=== PATIENT | male | born 1995 | race Caucasian/White ===

== ENCOUNTER 2023-10-30 19:06 | Emergency (ER) | payer MEDICAID, SELFPAY ==
[2023-10-30 19:18] VITALS: BP 132/77; PULSE 81; RESP 16; TEMP 36.2; O2SAT 97
--- NOTE | 2023-10-30 19:39 | ED.GENADUL_ITS ---
Discharge Plan Disposition Patient Disposition: Home Condition: Improving Discharge Details Chief Complaint: PsychEval Clinical Impression: Problem, psychiatric ED Provider: Hao Ignacio Home Meds and New Rx's Prescriptions: No Action aripiprazole [Abilify] 20 mg tablet 20 mg PO DAILY Patient Comments: not taking clonidine HCl 0.2 mg tablet 0.2 mg PO Q8H Patient Comments: not taking quetiapine 100 mg tablet 100 mg PO QHS Patient Comments: not taking fluoxetine 40 mg capsule 40 mg PO DAILY Patient Comments: not taking lithium carbonate 300 mg capsule 300 mg PO TID Discharge Instructions Instructions: Depression (ED) Additional Instructions: Please follow-up with [facility] as scheduled Medical Decision Making 28-year-old male presents with resolved suicidal ideations, was frustrated and made anxious by an argument he witnessed, currently staying at the [facility] in feels safe there, denies hallucinations, no evidence of delusions, denies current SI or HI. Patient calm cooperative neurologically intact. Hemodynamically stable not intoxicated no evidence of trauma. Will touch base again with [facility] for repeat evaluation if cleared from a psychiatric standpoint patient will be discharged back to where he has been staying 20: 23 patient evaluated by [facility], safety plan has been initiated patient safe for discharge this evening. PD coming to escort patient home. HPI General Date/Time Provider Initiated Documentation: 10/30/23 19:08 . HPI Narrative: 28-year-old male brought in by EMS for evaluation of suicide ideation, patient endorses witnessing an argument between his family members which made him anxious, as well as frustrated and develop thoughts of suicide specifically with a plan to jump off a bridge, was able to contact with the [facility] and human services today as an outpatient with a plan for placement once medically cleared however patient currently denying any suicidal or homicidal ideations denies hallucinations, feels safe where he is staying at the [facility] and wishes to return there. Related Data Home Medications Medication Instructions Recorded Confirmed aripiprazole 20 mg tablet (Abilify) 20 mg PO DAILY 10/30/23 10/30/23 clonidine HCl 0.2 mg tablet 0.2 mg PO Q8H 10/30/23 10/30/23 fluoxetine 40 mg capsule 40 mg PO DAILY 10/30/23 10/30/23 lithium carbonate 300 mg capsule 300 mg PO TID 10/30/23 10/30/23 quetiapine 100 mg tablet 100 mg PO QHS 10/30/23 10/30/23 Allergies Allergy/AdvReac Type Severity Reaction Status Date / Time risperidone Allergy Mild tics Unverified 10/30/23 19:12 General Stated Complaint: PsychEval SOLANGE: 2 Review of Systems Narrative: Review of Systems Constitutional: negative Eyes: negative ENT: negative Cardiovascular: negative Respiratory: negative Gastrointestinal: negative : negative Musculoskeletal: negative Skin: negative Neurologic: negative Psych: negative PFSH All Active Problems (Updated 10/30/23 @ 20:27 by Hao Ignacio MD) Problem, psychiatric (Acute) Social History Smoking/Tobacco Use Status: Former Tobacco Use Quit Date: 10/23/23 Tobacco: How many years used: 10 Smoking risk assessment performed?: Yes Alcohol Intake: never Drug use: Never Substance use type: does not use Housing: homeless Do you feel safe at home: Yes (homeless) Do you feel safe in your relationship?: Yes Exam Narrative Exam Narrative: Physical Examination General: alert, awake, cooperative, resting comfortably, no acute distress HEENT: normocephalic, atraumatic; PERRL, EOM intact, conjunctiva normal; no nasal discharge; moist mucous membranes, oral and pharyngeal mucosa normal, tolerating secretions Neck: supple, trachea midline; full ROM Chest: normal to inspection Respiratory: normal respiratory effort, speaking in full sentences Skin: no lesions, rashes or trauma appreciated Neuro: AAOx3, normal speech, moving all extremities Psych: Appropriate mood and affect; denies SI denies HI Course Vital Signs Vital signs: Vital Signs Temperature 36.2 C L 10/30/23 19:18 Pulse 81 10/30/23 19:18 Respiratory Rate 16 10/30/23 19:18 Blood Pressure 132/77 10/30/23 19:18 Pulse Oximetry 97 10/30/23 19:18 Temperature 36.2 C L 10/30/23 19:18 Temperature Source Temporal Artery Scan 10/30/23 19:18 Pulse 81 10/30/23 19:18 Respiratory Rate 16 10/30/23 19:18 Respiratory Effort Normal, Non-Labored 10/30/23 19:23 Blood Pressure 132/77 10/30/23 19:18 Blood Pressure Position Standing 10/30/23 19:18 Pulse Oximetry 97 10/30/23 19:18 Oxygen Delivery Method Room Air 10/30/23 19:18 Oxygen Flow Rate 0 10/30/23 19:18 End Tidal Co2 0 10/30/23 19:18 Pain Level 0 10/30/23 19:29
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
== END 2023-10-30 20:42 | disposition home or self-care (01) ==
LOC: ER 20:56
PROVIDERS: Emergency Provider Emergency Medicine
DX: F41.9 Anxiety disorder, unspecified (principal); R45.851 Suicidal ideations
CPT/HCPCS: 00123; 96127; 99285; 99284

== ENCOUNTER 2024-11-20 21:42 | Emergency (ER) | payer MEDICAID, SELFPAY ==
[2024-11-20] VITALS (18 sets, daily range): BP systolic 125–133; BP diastolic 72–89; PULSE 79–101; RESP 12–24; TEMP 36.9; O2SAT 94–98
--- NOTE | 2024-11-20 21:30 | RT.EKG_ITS ---
APPROVED REPORT Exam: Resting ECG Reason for Exam: Chest pain Patient Location: E HR:92 bpm ECG Measurements Heart Rate 92 AXIS AL 104 P 47 QRSd 127 QRS -29 QT 363 T 128 QTc 450 Conclusion Sinus rhythm...normal P axis, V-rate 60- 99 I have reviewed and interpreted ECG and agree with software generated interpretation.
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
--- NOTE | 2024-11-20 22:00 | DI.RAD_ITS ---
Exam(s) XR CHEST 2V PA LATERAL EXAM: XR CHEST 2V PA LATERAL CLINICAL HISTORY: CP. TECHNIQUE: 2D digital imaging was performed. COMPARISON: No exams were available for comparison FINDINGS: 2 views: Heart size is normal. The mediastinum is not widened. Lungs are clear. No infiltrates nor pleural effusions. IMPRESSION: No acute pulmonary findings. DATA REPOSITORY: RADIATION DOSE DELIVERED:
[2024-11-20 22:09] LABS: Abs Immature Grans 0.02 10^3/uL (0.0-0.06); Absolute Basophil Count 0.06 10^3/uL (0.0-0.2); Absolute Eosinophil Count 0.23 10^3/uL (0.0-0.7); Absolute Lymphocyte Count 3.23 10^3/uL (1.2-3.4); Absolute Monocyte Count 0.71 10^3/uL (0.1-0.8); Absolute Neutrophil Count 3.79 10^3/uL (1.2-6.7); Basophils % 0.7 %; Eosinophils % 2.9 %; HCT 45.5 % (40.0-50.0); HGB 15.5 g/dL (13.5-17.5); Immature Grans % 0.2 %; Lymphocytes % 40.2 %; MCH 30.8 pg (27.0-33.0); MCHC 34.1 % (32.0-36.0); MCV 90 fL (80-95); MPV 11.7 fL (8.0-11.0); Monocytes % 8.8 %; Neutrophils % 47.2 %; Platelet Count 208 10^3/uL (130-400); RBC 5.04 10^6/uL (4.36-5.78); RDW 11.9 % (11.8-14.1); RDW-SD 39.5 fL; WBC 8.04 10^3/uL (4.4-10.8)
[2024-11-20] MEDS: LORazepam 2 MG/ML VIAL 0.5 MG IVP (22:12)
[2024-11-20] MEDS: Ketorolac 15 MG/ML VIAL IVP (22:12)
[2024-11-20 22:27] LABS: Anion Gap 7.8 mmol/L (3-11); BUN 13 mg/dL (7-18); CO2 29.2 mmol/L (21.0-32.0); Calcium 9.2 mg/dL (8.5-10.1); Chloride 106 mmol/L (98-107); Estimated GFR 105.79 (mL/min/1.73m2); Glucose 122 mg/dL (74-106); Magnesium 1.9 mg/dL (1.8-2.4); Sodium 143 mmol/L (136-145); Troponin I 8 ng/L (<or=76)
--- NOTE | 2024-11-20 23:25 | DI.VRAD_ITS ---
PROCEDURE INFORMATION: Exam: XR Chest Exam date and time: 11/20/2024 10:19 PM Age: 29 years old Clinical indication: Pain; Other: Cp TECHNIQUE: Imaging protocol: Radiologic exam of the chest. Views: 2 views. COMPARISON: No relevant prior studies available. FINDINGS: Lungs: Normal. Pleural spaces: Unremarkable. No pleural effusion. No pneumothorax. Heart/Mediastinum: Normal. Bones/joints: No acute abnormality. IMPRESSION: No acute findings. Dictated and Authenticated by: Darnell Thapa MD. Ordering:KHAI Newby MD
== END 2024-11-20 23:31 | disposition home or self-care (01) ==
PROVIDERS: Emergency Provider Emergency Medicine
DX: R07.9 Chest pain, unspecified (principal); I45.6 Pre-excitation syndrome; Z59.00 Homelessness unspecified; Z87.891 Personal history of nicotine dependence
CPT/HCPCS: 80048; 93005; 96374; 96375; 99285; 71046; 83735; 84484; 85025; 93010; J1885; J2060

== ENCOUNTER 2024-11-22 23:15 | Emergency (ER) | payer MEDICAID, SELFPAY ==
[2024-11-22 23:11] VITALS: BP 135/88; PULSE 87; RESP 16; TEMP 36.5; O2SAT 97
--- NOTE | 2024-11-22 23:15 | RT.EKG_ITS ---
APPROVED REPORT Exam: Resting ECG Reason for Exam: chest pain Patient Location: E HR:76 bpm ECG Measurements Heart Rate 76 AXIS ME 112 P 46 QRSd 136 QRS -25 QT 376 T 134 QTc 425 Conclusion Sinus rhythm...normal P axis, V-rate 60- [address] segment or T wave abnormalities to suggest occlusive TX
[2024-11-22 23:19] VITALS: RESP 16
--- NOTE | 2024-11-22 23:30 | DI.RAD_ITS ---
Exam(s) XR CHEST 2V PA LATERAL EXAM: XR CHEST 2V PA LATERAL CLINICAL HISTORY: Chest pain. TECHNIQUE: 2D digital imaging was performed. COMPARISON: CR,XR XR CHEST 2V PA LATERAL from 11/20/2024 FINDINGS: 2 views: Heart size is normal. The mediastinum is not widened. Lungs are clear. No infiltrates nor pleural effusions. IMPRESSION: No acute pulmonary findings. DATA REPOSITORY: RADIATION DOSE DELIVERED:
[2024-11-22 23:44] VITALS: PULSE 91; RESP 16
[2024-11-22 23:45] VITALS: BP 137/70; PULSE 77; PULSE 86; RESP 18; O2SAT 96
[2024-11-22 23:50] VITALS: PULSE 75; RESP 22; O2SAT 97
[2024-11-22 23:56] LABS: Abs Immature Grans 0.01 10^3/uL (0.0-0.06); Absolute Basophil Count 0.07 10^3/uL (0.0-0.2); Absolute Eosinophil Count 0.25 10^3/uL (0.0-0.7); Absolute Lymphocyte Count 3.25 10^3/uL (1.2-3.4); Absolute Monocyte Count 0.53 10^3/uL (0.1-0.8); Absolute Neutrophil Count 2.48 10^3/uL (1.2-6.7); Basophils % 1.1 %; Eosinophils % 3.8 %; HCT 43.5 % (40.0-50.0); HGB 14.7 g/dL (13.5-17.5); Immature Grans % 0.2 %; Lymphocytes % 49.3 %; MCH 30.5 pg (27.0-33.0); MCHC 33.8 % (32.0-36.0); MCV 90 fL (80-95); MPV 11.7 fL (8.0-11.0); Neutrophils % 37.6 %; Platelet Count 183 10^3/uL (130-400); RBC 4.82 10^6/uL (4.36-5.78); RDW 11.9 % (11.8-14.1); RDW-SD 39.2 fL; WBC 6.59 10^3/uL (4.4-10.8)
[2024-11-23 00:01] VITALS: PULSE 80; RESP 17; O2SAT 97
[2024-11-23 00:10] VITALS: PULSE 70; RESP 17; O2SAT 97
[2024-11-23 00:12] LABS: ETHANOL BLOOD < 3.0 mg/dL (<10)
[2024-11-23 00:19] LABS: ALT 67 U/L (16-63); AST 27 U/L (15-37); Albumin 3.8 g/dL (3.4-5.0); Alkaline Phosphatase 77 U/L (46-116); Anion Gap 9.1 mmol/L (3-11); BUN 10 mg/dL (7-18); Bilirubin, Total 0.25 mg/dL (0.2-1.0); CO2 27.9 mmol/L (21.0-32.0); Calcium 9.2 mg/dL (8.5-10.1); Chloride 107 mmol/L (98-107); Estimated GFR 105.79 (mL/min/1.73m2); Glucose 121 mg/dL (74-106); Lipase 28 U/L (<78); Magnesium 1.8 mg/dL (1.8-2.4); Sodium 144 mmol/L (136-145); Total Protein 7.5 g/dL (6.4-8.2); Troponin I 6 ng/L (<or=76)
[2024-11-23 00:20] VITALS: PULSE 65; RESP 10; O2SAT 95
[2024-11-23 00:21] LABS: Acetaminophen < 2 ug/mL (10-30); Salicylate < 2.8 mg/dL (<2.8)
[2024-11-23 00:30] VITALS: PULSE 58; RESP 23; O2SAT 97
--- NOTE | 2024-11-23 01:17 | W.ED.GENAD ---
Discharge Plan Discharge Details Chief Complaint: Chest Pain Primary Care Provider: None,None ED Provider: Marilee Crum Home Meds and New Rx's Prescriptions: No Action aripiprazole [Abilify] 20 mg tablet 20 mg PO DAILY prazosin 1 mg capsule 1 mg PO DAILY Patient Comments: TAKE 1 CAPSULE BY MOUTH AT BEDTIME HPI General Mode of arrival: EMS. Date/Time Provider Initiated Documentation: 11/22/24 23:19. Limitations to Documentation: no limitations. Information obtained by: patient, EMS and old records reviewed. HPI Narrative: 29yo M with hx autism, bipolar, PTSD, WpW, presenting via EMS for suicidal ideation. Has been thinking about ending his life. No specific plan right now but would use any means necessary. Prior suicide attempts via cutting, previous psychiatric hospitalizations. Denies any ingestions or attempts today. Denies HI/AH/VH. Has otherwise felt well, but notes that chest pain started on arrival to the ED. Pain is sharp, substernal, nonradiating, with no alleviating or aggravating factors. Some shortness of breath and nausea with this. Has had similar pain in the past when discussing mental health issues. No family history of early cardiac disease. Otherwise in his usual state of health with no fevers, chills, rash, vomiting, abdominal pain, numbness, weakness, or other concerns. Seen in this ED 11/20 for chest pain that started while speaking with [facility] (reassuring workup), and on 10/30 for SI (safety plan and discharge). Related Data Home Medications ?Medication ?Instructions ?Recorded ?Confirmed aripiprazole 20 mg tablet (Abilify) 20 mg PO DAILY 10/30/23 11/22/24 prazosin 1 mg capsule 1 mg PO DAILY 11/20/24 11/22/24 Allergies Allergy/AdvReac Type Severity Reaction Status Date / Time risperidone Allergy Mild tics Verified 11/23/24 00:16 General Stated Complaint: Chest Pain SOLANGE: 2 Review of Systems Narrative: see HPI Exam Narrative Exam Narrative: General: Alert, well appearing, well nourished, in no acute distress. Head: Normocephalic, atraumatic Neck: Trachea midline, ?Neck supple. Cardiac: ?RRR, no murmurs appreciated Resp: No respiratory distress. CTAB. Abd: ?Soft, non-distended, nontender Extremities: ?No deformities.? No peripheral edema. Neurologic: GCS 15. ? Moves all extremities freely against gravity Psych: Calm, cooperative.? Well groomed.? Mood bad, affect flat.? Speech soft with normal rate, rythym and tone. Linear and goal directed.? + SI, no specific plan. Denies HI/AH/VH. ? Does not appear to be responding to internal stimuli. Course Vital Signs Vital signs: Vital Signs Temperature 36.5 C 11/22/24 23:11 Pulse 87 11/22/24 23:11 Respiratory Rate 16 11/22/24 23:11 Blood Pressure 135/88 11/22/24 23:11 Pulse Oximetry 97 11/22/24 23:11 Temperature 36.5 C 11/22/24 23:11 Pulse 77 11/22/24 23:45 Pulse 58 L 11/23/24 00:30 Respiratory Rate 23 11/23/24 00:30 Respiratory Effort Normal, Non-Labored 11/22/24 23:19 Respiratory Depth Normal 11/22/24 23:19 Respiratory Pattern Normal 11/22/24 23:19 Blood Pressure 137/70 11/22/24 23:45 Blood Pressure Mean 90 11/22/24 23:45 Blood Pressure Position Sitting 11/22/24 23:11 Pulse Oximetry 97 11/23/24 00:30 Oxygen Delivery Method Room Air 11/22/24 23:11 Oxygen Flow Rate 0 11/22/24 23:11 Pain Level 10 11/22/24 23:19 Lab/Test Results Lab/Test Results: Laboratory Tests Range/Units 11/22/24 23:47 WBC (4.4-10.8) 10^3/uL 6.59 RBC (4.36-5.78) 10^6/uL 4.82 Hgb (13.5-17.5) g/dL 14.7 Hct (40.0-50.0) % 43.5 MCV (80-95) fL 90 MCH (27.0-33.0) pg 30.5 MCHC (32.0-36.0) % 33.8 RDW (11.8-14.1) % 11.9 Plt Count (130-400) 10^3/uL 183 MPV (8.0-11.0) fL 11.7 H Immature Gran % % 0.2 Neutrophils % % 37.6 Lymphocytes % % 49.3 Monocytes % % 8.0 Eosinophils % % 3.8 Basophils % % 1.1 Nucleated RBC % (0.0-0.3) % 0.0 Absolute Neutrophils (1.2-6.7) 10^3/uL 2.48 Absolute Lymphocytes (1.2-3.4) 10^3/uL 3.25 Absolute Monocytes (0.1-0.8) 10^3/uL 0.53 Absolute Eosinophils (0.0-0.7) 10^3/uL 0.25 Absolute Basophils (0.0-0.2) 10^3/uL 0.07 Sodium (136-145) mmol/L 144 Potassium (3.5-5.1) mmol/L 4.0 Chloride (98-107) mmol/L 107 Carbon Dioxide (21.0-32.0) mmol/L 27.9 Anion Gap (3-11) mmol/L 9.1 BUN (7-18) mg/dL 10 Creatinine (0.70-1.30) mg/dL 1.0 Est GFR (CKD-EPI 2020) (mL/min/1.73m2) 105.79 Glucose (74-106) mg/dL 121 H Calcium (8.5-10.1) mg/dL 9.2 Magnesium (1.8-2.4) mg/dL 1.8 Total Bilirubin (0.2-1.0) mg/dL 0.25 AST (15-37) U/L 27 ALT (16-63) U/L 67 H Alkaline Phosphatase (46-116) U/L 77 Troponin I (<or=76) ng/L 6 Total Protein (6.4-8.2) g/dL 7.5 Albumin (3.4-5.0) g/dL 3.8 Lipase (<78) U/L 28 Salicylates (<2.8) mg/dL < 2.8 Acetaminophen (10-30) ug/mL < 2 Ethyl Alcohol (<10) mg/dL < 3.0 Medical Decision Making 29yo M with hx autism, bipolar, PTSD, WpW, presenting via EMS for suicidal ideation; no specific plan right now but would use any means necessary. Also reports chest pain started on arrival to the ED and has had similar pain in the past when discussing mental health issues. Vital signs and physical exam reassuring on arrival. EKG consistent with reported WpW, no ST segment or T wave abnormalities to suggest occlusive OK. PERC negative, would not further pursue PE with dimer/CT. CXR independently reviewed; no focal pneumonia or pneumothorax on my view, radiology read below with no acute findings. Labs reviewed as below, CBC with no leukocytosis or anemia, CMP with no actionable abnormalities, Mg normal, serum tox negative, troponin normal (6) On reassessment he reports his chest pain has entirely resolved. HEART score 1 (risk factors), low risk; would not further pursue ACS/trend troponin. Medically cleared; home meds ordered. Torsten from [facility] evaluated patient; recommending voluntary inpatient placement. Referrals being sent. Will be signed out to oncoming physician, plan as above. Imaging Data Radiologic Study: Imaging: X-Ray Radiologist's impression: IMPRESSION: No acute findings to explain reported symptoms Lab Data Lab results reviewed: Yes I reviewed the patient's lab results. Labs: Laboratory Tests Range/Units 11/22/24 23:47 WBC (4.4-10.8) 10^3/uL 6.59 RBC (4.36-5.78) 10^6/uL 4.82 Hgb (13.5-17.5) g/dL 14.7 Hct (40.0-50.0) % 43.5 MCV (80-95) fL 90 MCH (27.0-33.0) pg 30.5 MCHC (32.0-36.0) % 33.8 RDW (11.8-14.1) % 11.9 Plt Count (130-400) 10^3/uL 183 MPV (8.0-11.0) fL 11.7 H Immature Gran % % 0.2 Neutrophils % % 37.6 Lymphocytes % % 49.3 Monocytes % % 8.0 Eosinophils % % 3.8 Basophils % % 1.1 Nucleated RBC % (0.0-0.3) % 0.0 Absolute Neutrophils (1.2-6.7) 10^3/uL 2.48 Absolute Lymphocytes (1.2-3.4) 10^3/uL 3.25 Absolute Monocytes (0.1-0.8) 10^3/uL 0.53 Absolute Eosinophils (0.0-0.7) 10^3/uL 0.25 Absolute Basophils (0.0-0.2) 10^3/uL 0.07 Sodium (136-145) mmol/L 144 Potassium (3.5-5.1) mmol/L 4.0 Chloride (98-107) mmol/L 107 Carbon Dioxide (21.0-32.0) mmol/L 27.9 Anion Gap (3-11) mmol/L 9.1 BUN (7-18) mg/dL 10 Creatinine (0.70-1.30) mg/dL 1.0 Est GFR (CKD-EPI 2020) (mL/min/1.73m2) 105.79 Glucose (74-106) mg/dL 121 H Calcium (8.5-10.1) mg/dL 9.2 Magnesium (1.8-2.4) mg/dL 1.8 Total Bilirubin (0.2-1.0) mg/dL 0.25 AST (15-37) U/L 27 ALT (16-63) U/L 67 H Alkaline Phosphatase (46-116) U/L 77 Troponin I (<or=76) ng/L 6 Total Protein (6.4-8.2) g/dL 7.5 Albumin (3.4-5.0) g/dL 3.8 Lipase (<78) U/L 28 Salicylates (<2.8) mg/dL < 2.8 Acetaminophen (10-30) ug/mL < 2 Ethyl Alcohol (<10) mg/dL < 3.0 Quality:SDOH Health Related Social Needs: Health related social needs housing instability, housed, with risk of homelessness (Z59.811), problems related to housing/economic circumstances (Z59.89), feeling lonely/isolated (Z60.8) PFSH All Active Problems Chest pain (Acute) Medical History Autism WPW (Dwioc-Myiexyuom-Gsczd syndrome) Social History Smoking/Tobacco Use Status: Former Tobacco Use Quit Date: 10/23/23 Tobacco: How many years used: 10 Smoking risk assessment performed?: Yes Alcohol Intake: never Drug use: Socially Substance use type: marijuana Housing: homeless Do you feel safe at home: Yes (homeless) Do you feel safe in your relationship?: Yes Additional Social history: living at [facility] 11/22/24
--- NOTE | 2024-11-23 01:39 | DI.VRAD_ITS ---
PROCEDURE INFORMATION: Exam: XR Chest Exam date and time: 11/22/2024 11:58 PM Age: 29 years old Clinical indication: Other: Chest pain TECHNIQUE: Imaging protocol: Radiologic exam of the chest. Views: 2 views. COMPARISON: CR XR CHEST 2V PA LATERAL 11/20/2024 10:19 PM FINDINGS: Lungs: No focal consolidation seen. Pleural spaces: No large pleural effusion seen. Heart/Mediastinum: No cardiomegaly. Bones/joints: No acute abnormality. IMPRESSION: No acute findings to explain reported symptoms. Dictated and Authenticated by: Melania David MD. Ordering:JOE Hunt MD
--- NOTE | 2024-11-23 02:32 | NUR.NOTE ---
[facility] called back for zoom meeting
--- NOTE | 2024-11-23 03:23 | PDOC.MHCN ---
Date of service: 11/23/24 Time of Service: 02:17 Suicide Severity Rate CSSRS Have you wished you were or wished you could go to sleep and not wake up?: Yes Have you actually had any thoughts of killing yourself?: Yes CSSRS2 Have you been thinking about how you might do this?: Yes Have you had these thoughts and had some intention of acting on them?: Yes Have you started to work out or worked out the details of how to kill yourself? Do you intend to carry out this plan?: Yes CSSRS3 Have you ever done anything, started to do anything or prepared to do anything to end your life?: Yes CSSRS4 Was this within the past three months?: No Screening Score Total Score: 6 Screening: Positive Mental Health Emergency Note Release [facility] release signed:: Yes Reason for Visit Client called ambulance do to feeling suicidal. Client shared these feeling have been going on all day. Client stated that he will jump in front of a car or any means necessary to harm himself. Client shared that if he had services he might not feel this way but he doesn't have any support to help him get through feelings of SI. In the last 2 weeks has the pt presented for ES prior to today?: Yes, presented at Client Information Client is: Adult Outpatient Well Housed: No,status: Homeless Unstable housing Non Suicidal Self Injury Current: No History: No Safety Risk/Harm to Self or Others Current Ideation to Harm Self or Others: Yes to self. Intent: yes, has intent. Plan: yes,has a plan. Risk: Does risk to harm exist?: yes. Risk: Moderate Risk Duty to warn indicated: No Asssessment/Mental Status Appearance: Other (Paper clothes) Attitude: Cooperative Behavior: Unremarkable Speech: Normal Affect: Normal Mood: Depressed Thought process: Unremarkable Hallucinations: No Delusions: No Attention: Unremarkable Perception: Not impaired Orientation: Fully orientated Memory: Intact Insight: Good Judgement: Good Neurovegetative Symptoms Sleep: Decrease Appetitie: Decrease Interests: No change Energy: No change Libido: No change Substance Use: Do you use nicotine?: No Have you used substances in the last 7 days?: No Additional Issues: Assaultive/Threatening Behavior: No Medical Concerns: No Client engaged in active self harm w/weapon: No Threatening to run away: No Child reported abuse/neglect: No Voluntarily presenting for services: Yes Domestic violence is a concern: No Extreme Psychosis or extreme behavior is present: No Plan/Disposition Recommended Disposition: Crisis bed, facility contacted. Status of Crisis Bed acceptance: Pending review. Plan: Client will remain at [facility] awaiting inpatient hospitalization, referrals have been sent out. Reports/communication Outcome discussed with: ED/Personnel (Discussed with Dr. Crum) Final Disposition/Discharge Transportation Checklist completed and faxed: No
[2024-11-23] MEDS: Prazosin 1 MG CAP PO (08:46)
[2024-11-23] MEDS: Omeprazole 20 MG CAPCR PO (09:23)
--- NOTE | 2024-11-23 10:43 | W.EDPROG ---
Date of service: 11/23/24 Time of Service: 10:44 Medical Decision Making Care was signed out by Dr. Crum. Patient noted to be medically cleared and awaiting further psychiatric treatment. Patient evaluated by crisis screener and deemed safe for discharge with safety plan. Patient agreeable to discharge plan. Patient is not suicidal. No recurrent chest pain. I spoke with care management re: helping patient establish PCP. Quality:SDOH Health Related Social Needs: Health related social needs housing instability, housed, with risk of homelessness (Z59.811), problems related to housing/economic circumstances (Z59.89), feeling lonely/isolated (Z60.8) Discharge Plan Disposition Patient Disposition: Home Condition: Stable Discharge Details Clinical Impression: Suicidal ideation, Chest pain Primary Care Provider: None,None ED Provider: Bossman Andersen Home Meds and New Rx's Prescriptions: Continued omeprazole 20 mg capsule,delayed release(DR/EC) 20 mg PO DAILY aripiprazole [Abilify] 20 mg tablet 20 mg PO DAILY prazosin 1 mg capsule 1 mg PO DAILY Patient Comments: TAKE 1 CAPSULE BY MOUTH AT BEDTIME Discharge Instructions Instructions: Chest Pain, Adult ED, Depression, Adult ED Additional Instructions: Please contact your primary care physician to arrange follow-up. Call today. Please follow-up with [facility] services as discussed today as part of your discharge safety plan. Return to the ER immediately for any worsening or new concerning symptoms. Referrals: [facility] [Provider Group]
[2024-11-23] MEDS: ARIPiprazole 5 MG TAB 10 MG PO (10:45)
--- NOTE | 2024-11-23 12:18 | CMPROGNOTE_ITS ---
Date of service: 11/23/24 Time of Service: 12:18 Care Management Progress Note Progress Note Text Progress Note Text: Ketan met with [facility] this morning, and together he and the outreach clinician created a safety plan, and he was discharged back to the community. CM huddled with staff, including MD, RN, AUDIE, and [facility] clinician; all are in agreement with the plan for Ketan to be discharged with a safety plan. CASTRO sent a PCP referral to the personal counselor provider, at the request of . Social Determinants of Health Screening Will the Patient Participate in the Screening?: Unable to obtain
--- NOTE | 2024-11-23 12:18 | PDOC.CMPRO ---
Date of service: 11/23/24 Time of Service: 12:18 Care Management Progress Note Progress Note Text Progress Note Text: Ektan met with [facility] this morning, and together he and the creative services manager created a safety plan, and he was discharged back to the community. CM huddled with staff, including MD, RN, AUDIE, and [facility] clinician; all are in agreement with the plan for Ketan to be discharged with a safety plan. CASTRO sent a PCP referral to the environmental maintenance worker provider, at the request of . Social Determinants of Health Screening Will the Patient Participate in the Screening?: Unable to obtain
--- NOTE | 2024-11-23 12:53 | MHPN_ITS ---
Date of service: 11/23/24 Time of Service: 12:55 Mental Health Emergency Note Release [facility] release signed:: Yes Reason for Visit Client went to the ER Feeling suicidal, client had hotel staff call ambulance. Client stated he was thinking of jumping in front of a car or any means necessary. Client is known to [facility], client shared he is on a wait list for DS program through [facility]. This is the client's re-assessment completed face to face at bedside. In the last 2 weeks has the pt presented for ES prior to today?: Unknown Impression The client is a 29-year-old, single, male who is currently residing in the [facility]. The client uses He/Him pronouns. All underrepresented identifiers were honored during this assessment. The client is observed lying in bed but quickly arises upon this clinician's entry. He stated immediately he is not feeling suicidal anymore and stated I was struggling yesterday and not today. I don't know often if I am really suicidal or not. A lot of the times I misunderstand my feelings and get overwhelmed. The client requested a safety plan. I should have on there that I will use my safety plan before coming to the ED. The client seems to be showing improved insight and judgement at this time. This clinician worked with him on a safety plan which was shared with the ED. Resources [facility] reviewed and given:: [phone] and Other Plan/Disposition Recommended Disposition: Community resources. Plan: Client to return to the [facility] and follow up with his team as scheduled. Person reported agreement to plan: Yes Reports/communication Outcome discussed with: ED/Personnel
== END 2024-11-23 11:29 | disposition home or self-care (01) ==
PROVIDERS: Student in an Organized Health Care Education/Training Program; Emergency Provider Student in an Organized Health Care Education/Training Program
DX: R45.851 Suicidal ideations (principal); R07.9 Chest pain, unspecified; F84.0 Autistic disorder; I45.6 Pre-excitation syndrome; Z87.891 Personal history of nicotine dependence
CPT/HCPCS: 00123; 80053; 83690; 93005; 99285; 71046; 80320; 80329; 83735; 84484; 85025; 93010

== ENCOUNTER 2024-11-28 07:48 | Emergency (ER) | payer MEDICAID, SELFPAY ==
[2024-11-28] VITALS (56 sets, daily range): BP systolic 116–161; BP diastolic 52–105; PULSE 59–96; RESP 11–29; TEMP 36.6; O2SAT 94–97
--- NOTE | 2024-11-28 07:30 | RT.EKG_ITS ---
APPROVED REPORT Exam: Resting ECG Reason for Exam: chest pain Patient Location: E HR:85 bpm ECG Measurements Heart Rate 85 AXIS HI 117 P 41 QRSd 139 QRS -27 QT 365 T 139 QTc 435 Conclusion Sinus rhythm...normal P axis, V-rate 60- 99
--- NOTE | 2024-11-28 08:00 | DI.RAD_ITS ---
Exam(s) XR PORTABLE CHEST AP EXAM: XR PORTABLE CHEST AP CLINICAL HISTORY: chest pain TECHNIQUE: 2D digital imaging was performed of the chest. One image was obtained. An AP view was ob tained. COMPARISON: CR,XR XR CHEST 2V PA LATERAL from 11/22/2024 FINDINGS: MEDIASTINUM: Normal. HEART: Normal. PULMONARY VASCULATURE: Normal. LUNGS: Clear. PLEURAL SPACE: No pleural effusion or pneumothorax. BONE:Within normal limits for the patient's age. OTHER FINDINGS:Normal. IMPRESSION: No acute pulmonary findings. DATA REPOSITORY: RADIATION DOSE DELIVERED:
[2024-11-28 08:05] LABS: Abs Immature Grans 0.01 10^3/uL (0.0-0.06); Absolute Basophil Count 0.05 10^3/uL (0.0-0.2); Absolute Eosinophil Count 0.19 10^3/uL (0.0-0.7); Absolute Lymphocyte Count 2.64 10^3/uL (1.2-3.4); Absolute Monocyte Count 0.52 10^3/uL (0.1-0.8); Absolute Neutrophil Count 1.98 10^3/uL (1.2-6.7); Basophils % 0.9 %; Eosinophils % 3.5 %; HCT 42.7 % (40.0-50.0); HGB 14.7 g/dL (13.5-17.5); Immature Grans % 0.2 %; MCH 30.9 pg (27.0-33.0); MCHC 34.4 % (32.0-36.0); MCV 90 fL (80-95); MPV 11.7 fL (8.0-11.0); Monocytes % 9.6 %; Neutrophils % 36.8 %; Platelet Count 188 10^3/uL (130-400); RBC 4.75 10^6/uL (4.36-5.78); RDW 11.9 % (11.8-14.1); RDW-SD 39.4 fL; WBC 5.39 10^3/uL (4.4-10.8)
--- NOTE | 2024-11-28 08:06 | W.ED.GENAD ---
Discharge Plan Disposition Patient Disposition: Home Condition: Stable Discharge Details Clinical Impression: Chest pain Primary Care Provider: None,None ED Provider: Luis Manning Home Meds and New Rx's Prescriptions: Continued omeprazole 20 mg capsule,delayed release(DR/EC) 20 mg PO DAILY aripiprazole [Abilify] 20 mg tablet 10 mg PO DAILY prazosin 1 mg capsule 1 mg PO DAILY Patient Comments: TAKE 1 CAPSULE BY MOUTH AT BEDTIME Discharge Instructions Additional Instructions: I placed you on a follow-up list to try and get established with a reeler operator. Follow-up with your mental health providers as well If you feel more ill, have severe worsening pain or difficulty breathing return to the emergency department for reevaluation HPI General Mode of arrival: EMS. Date/Time Provider Initiated Documentation: 11/28/24 07:49. Limitations to Documentation: no limitations. Information obtained by: patient. History of Present Illness 29 year old M presents to the emergency department with the chief complaint of chest pain, described as moderate, Quality is described as aching, and is localized to the chest. Patient reports no radiation. and it has been constant. No relieving factors improve symptom(s), No exacerbating factors reported . Patient notes no other symptoms.; denies fever/chills and shortness of breath. Patient did receive the following treatments prior to arrival, none Related Data Home Medications ?Medication ?Instructions ?Recorded ?Confirmed aripiprazole 20 mg tablet (Abilify) 10 mg PO DAILY 10/30/23 11/28/24 prazosin 1 mg capsule 1 mg PO DAILY 11/20/24 11/28/24 omeprazole 20 mg capsule,delayed 20 mg PO DAILY 11/23/24 11/28/24 release Allergies Allergy/AdvReac Type Severity Reaction Status Date / Time risperidone Allergy Mild tics Verified 11/28/24 07:54 General Stated Complaint: Chest Pain SOLANGE: 3 Review of Systems All systems reviewed & are unremarkable except as noted in HPI and below Constitutional Constitutional: Denies chills, Denies fever(s) and Denies weakness Cardiovascular Cardiovascular: Reports chest pain and Denies dyspnea Respiratory Respiratory: Denies cough and Denies dyspnea Gastrointestinal Gastrointestinal: Denies abdominal pain, Denies nausea and Denies vomiting Neurologic Neurologic: Denies weakness Psychiatric Psychiatric: Denies depression Exam Const General: no acute distress Orientation: alert HENMT Head: normal to inspection Ears: external ears normal General nose exam: external nose normal Mouth: moist mucous membranes Eyes General: appearance normal, both eyes and all related structures Neck Neck: normal visual inspection Resp Effort & Inspection: normal respiratory effort and able to speak in complete sentences Auscultation: clear to auscultation bilaterally Cardio Jugular venous pressure: no JVD Rate: regular rate Heart Sounds: no murmurs Skin General skin exam: no rashes or lesions noted Neuro General: patient alert and patient oriented x3 Extrem General: normal to inspection Psych Mental Status: mental status grossly normal Course Vital Signs Vital signs: Vital Signs Temperature 36.6 C 11/28/24 07:47 Pulse 84 11/28/24 07:47 Respiratory Rate 18 11/28/24 07:47 Blood Pressure 150/79 H 11/28/24 07:47 Pulse Oximetry 97 11/28/24 07:47 Temperature 36.6 C 11/28/24 07:47 Temperature Source Oral 11/28/24 07:47 Pulse 84 11/28/24 07:47 Respiratory Rate 18 11/28/24 07:47 Blood Pressure 150/79 H 11/28/24 07:47 Pulse Oximetry 97 11/28/24 07:47 Oxygen Delivery Method Room Air 11/28/24 07:47 Oxygen Flow Rate 0 11/28/24 07:47 Lab/Test Results Lab/Test Results: Laboratory Tests Range/Units 11/28/24 11/28/24 07:50 07:58 WBC (4.4-10.8) 10^3/uL 5.39 RBC (4.36-5.78) 10^6/uL 4.75 Hgb (13.5-17.5) g/dL 14.7 Hct (40.0-50.0) % 42.7 MCV (80-95) fL 90 MCH (27.0-33.0) pg 30.9 MCHC (32.0-36.0) % 34.4 RDW (11.8-14.1) % 11.9 Plt Count (130-400) 10^3/uL 188 MPV (8.0-11.0) fL 11.7 H Immature Gran % % 0.2 Neutrophils % % 36.8 Lymphocytes % % 49.0 Monocytes % % 9.6 Eosinophils % % 3.5 Basophils % % 0.9 Nucleated RBC % (0.0-0.3) % 0.0 Absolute Neutrophils (1.2-6.7) 10^3/uL 1.98 Absolute Lymphocytes (1.2-3.4) 10^3/uL 2.64 Absolute Monocytes (0.1-0.8) 10^3/uL 0.52 Absolute Eosinophils (0.0-0.7) 10^3/uL 0.19 Absolute Basophils (0.0-0.2) 10^3/uL 0.05 Troponin I Cancelled TSH Cancelled Medical Decision Making 29-year-old male with a history of bipolar and known WPW comes in with chest pain since early this morning. He says he is anxious as he is part of the hotel voucher program and is worried about getting kicked out left-sided chest pain. He denies any drug use, fevers, difficulty breathing. He is stable on arrival but he does appear anxious. He is speaking clearly, has no leg swelling or calf tenderness. Clear lung sounds, no JVD. He is PERC negative and Wells low so doubt PE. He has no tearing back pain and equal peripheral pulses so doubt dissection. I suspect his pain is likely due to anxiety about being kicked out of the hotel program. I will check a CBC, CMP and troponins and reassess. X-ray and labs unremarkable, patient is stable. Patient states that earlier today he did have thoughts of self-harm and did not act on them. He says he does not have any thoughts of self-harm currently. Will have mental health evaluate him. He will need follow-up with cardiology as well. Patient met with mental health and will be planning on a safety plan at home which I feel is reasonable. I placed on the follow-up list to see cardiology and probably should see [facility] cardiology due to access to electrophysiology if he does not see a reeler operator regularly for his WPW. Return precautions given Differential Diagnosis Differential Diagnosis: WPW, NSTEMI, anxiety Medical Records Medical records reviewed: Yes I reviewed the patient's medical records. Lab Data Lab results reviewed: Yes I reviewed the patient's lab results. ECG Data Attestation: I personally reviewed and interpreted this ECG (s) as follows: Prior ECG tracings: available for review Interpretation: sinus rate of 85 wpw, no stemi Quality:SDOH Health Related Social Needs: Health related social needs housing instability, housed, with risk of homelessness (Z59.811), problems related to housing/economic circumstances (Z59.89), feeling lonely/isolated (Z60.8) PFSH All Active Problems (Updated 11/28/24 @ 09:50 by Luis Manning MD) Suicidal ideation (Acute) Chest pain (Acute) Medical History Autism WPW (Pddfm-Ofuluzvzo-Daklm syndrome) Social History Smoking/Tobacco Use Status: Former Tobacco Use Quit Date: 10/23/23 Tobacco: How many years used: 10 Smoking risk assessment performed?: Yes Alcohol Intake: current Alcohol Intake frequency: a few times a month Alcohol type: hard liquor Drug use: Socially Substance use type: marijuana Housing: homeless Do you feel safe at home: Yes (homeless) Do you feel safe in your relationship?: Yes Additional Social history: living at [facility] 11/22/24
[2024-11-28 08:29] LABS: ALT 75 U/L (16-63); AST 26 U/L (15-37); Albumin 3.9 g/dL (3.4-5.0); Alkaline Phosphatase 70 U/L (46-116); Anion Gap 9.7 mmol/L (3-11); BUN 12 mg/dL (7-18); Bilirubin, Total 0.24 mg/dL (0.2-1.0); CO2 26.3 mmol/L (21.0-32.0); CREATININE 0.9 mg/dL (0.70-1.30); Calcium 8.8 mg/dL (8.5-10.1); Chloride 107 mmol/L (98-107); Estimated GFR 120.05 (mL/min/1.73m2); Glucose 114 mg/dL (74-106); Lipase 27 U/L (<78); Magnesium 1.8 mg/dL (1.8-2.4); Potassium 3.7 mmol/L (3.5-5.1); Sodium 143 mmol/L (136-145); TSH (W/Ref FT4) 3.26 uIU/mL (0.36-3.74); Total Protein 7.5 g/dL (6.4-8.2); Troponin I 8 ng/L (<or=76)
[2024-11-28 09:44] LABS: Troponin I 8 ng/L (<or=76)
--- NOTE | 2024-11-28 13:27 | NUR.NOTE ---
The patient left his care plan behind and it is in the mail to him. Nursing Note:
--- NOTE | 2024-11-28 15:19 | PDOC.CMPRO ---
Date of service: 11/28/24 Time of Service: 15:19 Care Management Progress Note Progress Note Text Progress Note Text: Ketan was evaluated by [facility] today to determine if he met criteria for voluntary inpatient psychiatric stabilization. Per NK, Ketan developed a safety plan on Tuesday, and during the assessment, Ketan expressed interest in continuing to follow the established safety plan. [facility] provided the established plan, and Ketan was discharged back to the community, where he is staying at a local hotel currently, utilizing the [facility] [employer] voucher for inclement weather. CM will continue to follow. Social Determinants of Health Screening Will the Patient Participate in the Screening?: Declined to provide
--- NOTE | 2024-11-29 08:21 | PDOC.MHCN ---
Date of service: 11/28/24 Time of Service: 11:20 Mental Health Emergency Note Release [facility] release signed:: Yes Reason for Visit Client called ambulance for chest pain possibly related to ongoing anxiety. In the last 2 weeks has the pt presented for ES prior to today?: Yes, presented at Client Information Client is: Adult Outpatient Well Housed: No,status: Homeless Non Suicidal Self Injury Current: No History: yes, Client reported ongoing cycling SI, no plan or intent. Safety Risk/Harm to Self or Others Current Ideation to Harm Self or Others: No Impression Client is struggling with using coping skills and resources offered to him. Resources Reosurces reviewed and given:: [id number], Community therapist and [facility] Plan/Disposition Recommended Disposition: [facility] Services [facility] Services: Therapy, Therapy and Community resources. Plan: Client agreed to safety planning. He refused to complete a new one with technical publications writer and would only accept the EXACT last safety plan he had because he felt that it helped him the most. Person reported agreement to plan: Yes Reports/communication Outcome discussed with: ED/Personnel
== END 2024-11-28 13:20 | disposition home or self-care (01) ==
PROVIDERS: Emergency Provider Emergency Medicine
DX: R07.9 Chest pain, unspecified (principal); F41.9 Anxiety disorder, unspecified; I45.6 Pre-excitation syndrome; Z87.891 Personal history of nicotine dependence
CPT/HCPCS: 00123; 36415; 80053; 83690; 93005; 99284; 71045; 83735; 84443; 84484; 85025; 93010

== ENCOUNTER 2024-11-30 17:16 | Emergency (ER) | payer MEDICAID, SELFPAY ==
[2024-11-30 17:18] VITALS: BP 135/99; PULSE 75; RESP 13; TEMP 36.6; O2SAT 98
--- NOTE | 2024-11-30 18:57 | ED.GENADUL_ITS ---
Discharge Plan Disposition Patient Disposition: Psychiatric Hospital/Unit Specific Psychiatric Facility: Other Condition: Stable Discharge Details Chief Complaint: PsychEval Clinical Impression: Suicidal ideation Primary Care Provider: None,None ED Provider: Gisselle Johnson Home Meds and New Rx's Prescriptions: No Action omeprazole 20 mg capsule,delayed release(DR/EC) 20 mg PO DAILY aripiprazole [Abilify] 20 mg tablet 10 mg PO DAILY prazosin 1 mg capsule 1 mg PO DAILY Patient Comments: TAKE 1 CAPSULE BY MOUTH AT BEDTIME HPI General Date/Time Provider Initiated Documentation: 11/30/24 17:20 . Limitations to Documentation: no limitations . Information obtained by: patient, EMS and old records reviewed . HPI Narrative: 29-year-old gentleman who is currently staying in state sponsored apartment housing presents for evaluation of suicidal ideation. 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 He states that he got into an argument with his parents on the telephone. He says that he has had increasing suicidal ideation recently. But this argument made his symptoms worse. He states that he tried to choke himself in order to kill himself. He reports 4 prior suicide attempts and prior hospitalizations. He states that he does not feel safe going home and that he is requesting inpatient psychiatric care. Related Data Home Medications ?Medication ?Instructions ?Recorded ?Confirmed aripiprazole 20 mg tablet (Abilify) 10 mg PO DAILY 10/30/23 11/30/24 prazosin 1 mg capsule 1 mg PO DAILY 11/20/24 11/30/24 omeprazole 20 mg capsule,delayed 20 mg PO DAILY 11/23/24 11/30/24 release Allergies Allergy/AdvReac Type Severity Reaction Status Date / Time risperidone Allergy Mild tics Verified 11/30/24 17:23 General Stated Complaint: PsychEval SOLANGE: 2 Exam Narrative Exam Narrative: Review of Systems: All systems reviewed & are unremarkable except as noted in HPI and below Well-developed, no acute distress NCAT PERRL, normal conjunctiva RRR Unlabored respiratory effort Nondistended abdomen +SI Course Vital Signs Vital signs: Vital Signs Temperature 36.6 C 11/30/24 17:18 Pulse 75 11/30/24 17:18 Respiratory Rate 13 11/30/24 17:18 Blood Pressure 135/99 H 11/30/24 17:18 Pulse Oximetry 98 11/30/24 17:18 Temperature 36.6 C 11/30/24 17:18 Temperature Source Oral 11/30/24 17:18 Pulse 75 11/30/24 17:18 Respiratory Rate 13 11/30/24 17:18 Blood Pressure 135/99 H 11/30/24 17:18 Blood Pressure Position Sitting 11/30/24 17:18 Pulse Oximetry 98 11/30/24 17:18 Oxygen Delivery Method Room Air 11/30/24 17:18 Oxygen Flow Rate 0 11/30/24 17:18 Pain Level 0 11/30/24 17:18 Medical Decision Making Emergent evaluation of suicidal ideation. Patient has autism and is endorsing suicidal ideation though his method of self-harm seems to be low risk. The patient had lab work done a few days ago and and is otherwise able to be medically cleared via the smart clearance form. He was evaluated by mental health services. She reports that they did have a conversation earlier in the day. At that time the patient was not endorsing any suicidal ideation and did not want to come to the hospital so she feels that his presentation to the hospital and his complaint of suicidal ideation is surprising. At this time she was unable to safety plan the patient as he states that he absolutely will kill himself if he leaves. If he is unable to kill himself by choking himself he sets that he will walk out into traffic. Given his request for inpatient stay, referrals will be sent for placement. Psych holding orders have been placed. All medications have been ordered. Quality:SDOH Health Related Social Needs: Health related social needs housing instability, house d, with risk of homelessness (Z59.811), problems related to housing/economic circumstances (Z59.89), feeling lonely/isolated (Z60.8) PFSH All Active Problems (Updated 11/30/24 @ 19:23 by Gisselle Johnson MD) Suicidal ideation (Acute) Chest pain (Acute) Medical History Autism WPW (Cnyvq-Wkmkdnicn-Vzurt syndrome) Social History Smoking/Tobacco Use Status: Former Tobacco Use Quit Date: 10/23/23 Tobacco: How many years used: 10 Smoking risk assessment performed?: Yes Alcohol Intake: current Alcohol Intake frequency: a few times a month Alcohol type: hard liquor Drug use: Current Sobriety Substance use type: marijuana Details: Pt states he is no longer using marijuana 11/30/24 Housing: homeless Do you feel safe at home: Yes (homeless) Do you feel safe in your relationship?: Yes Additional Social history: living at [facility] 11/22/24
[2024-11-30 19:17] VITALS: BP 136/82; PULSE 85; RESP 16; TEMP 36.6; O2SAT 99
--- NOTE | 2024-11-30 20:45 | RT.EKG_ITS ---
APPROVED REPORT Exam: Resting ECG Reason for Exam: chest pain Patient Location: E HR:90 bpm ECG Measurements Heart Rate 90 AXIS AK 110 P 58 QRSd 129 QRS -28 QT 379 T 134 QTc 465 Conclusion Sinus rhythm 90 WPW unchanged from prior
--- NOTE | 2024-11-30 21:13 | ED.PROG_ITS ---
Date of service: 11/30/24 Time of Service: 21:13 Medical Decision Making Patient and has decided that he would now like to go home. He discussed with [facility] and has agreed to a safety plan. He will be discharged in good condition. An EKG was obtained at the patient's request. It does demonstrate findings cons istent with WPW without any change from prior Quality:SDOH Health Related Social Needs: Health related social needs housing instability, house d, with risk of homelessness (Z59.811), problems related to housing/economic circumstances (Z59.89), feeling lonely/isolated (Z60.8) Discharge Plan Disposition Patient Disposition: Home Condition: Stable Discharge Details Clinical Impression: Suicidal ideation Primary Care Provider: None,None ED Provider: Gisselle Johnson Home Meds and New Rx's Prescriptions: No Action omeprazole 20 mg capsule,delayed release(DR/EC) 20 mg PO DAILY aripiprazole [Abilify] 20 mg tablet 10 mg PO DAILY prazosin 1 mg capsule 1 mg PO DAILY Patient Comments: TAKE 1 CAPSULE BY MOUTH AT BEDTIME Discharge Instructions Additional Instructions: You have agreed to a safety plan with [facility] Please abide by the safety plan. Continue your follow-up with mental health services and primary care providers. Return to the emergency department as needed
== END 2024-11-30 21:20 | disposition home or self-care (01) ==
PROVIDERS: Emergency Provider Emergency Medicine
DX: R45.851 Suicidal ideations (principal); F84.0 Autistic disorder; I45.6 Pre-excitation syndrome; Z87.891 Personal history of nicotine dependence
CPT/HCPCS: 00123; 93005; 99284; 93010

== ENCOUNTER 2024-12-01 22:10 | Emergency (ER) | payer MEDICAID, SELFPAY ==
[2024-12-01] VITALS (9 sets, daily range): BP systolic 111–137; BP diastolic 65–76; PULSE 70–85; RESP 14–24; O2SAT 94–97
--- NOTE | 2024-12-01 22:00 | RT.EKG_ITS ---
APPROVED REPORT Exam: Resting ECG Reason for Exam: chest pain Patient Location: E HR:84 bpm ECG Measurements Heart Rate 84 AXIS OR 109 P 49 QRSd 136 QRS -19 QT 376 T 141 QTc 444 Conclusion Sinus rhythm...normal P axis, V-rate 60- 99 I have reviewed and interpreted ECG and agree with software generated interpretation.
--- NOTE | 2024-12-01 22:15 | DI.RAD_ITS ---
Exam(s) XR PORTABLE CHEST AP EXAM: XR PORTABLE CHEST AP CLINICAL HISTORY: rigth sided chest pain TECHNIQUE: 2D digital imaging was performed of the chest. One image was obtained. An AP view was ob tained. COMPARISON: CR XR PORTABLE CHEST AP from 11/28/2024 FINDINGS: MEDIASTINUM: Normal. HEART: Normal. PULMONARY VASCULATURE: Normal. LUNGS: Clear. PLEURAL SPACE: No pleural effusion or pneumothorax. BONE:Within normal limits for the patient's age. OTHER FINDINGS:Normal. IMPRESSION: No acute pulmonary findings. DATA REPOSITORY: RADIATION DOSE DELIVERED:
--- NOTE | 2024-12-01 22:29 | W.ED.GENAD ---
Discharge Plan Disposition Patient Disposition: Home Condition: Good Discharge Details Chief Complaint: Chest Pain Clinical Impression: Depression, Robvx-Febkrhoqg-Wyhdq pattern Primary Care Provider: None,None ED Provider: Thiago Rouse Home Meds and New Rx's Prescriptions: No Action omeprazole 20 mg capsule,delayed release(DR/EC) 20 mg PO DAILY aripiprazole [Abilify] 20 mg tablet 10 mg PO DAILY prazosin 1 mg capsule 1 mg PO DAILY Patient Comments: TAKE 1 CAPSULE BY MOUTH AT BEDTIME Discharge Instructions Instructions: Mfaht-Bskhdmwqm-Woind syndrome Additional Instructions: Please continue to abide by your safety plan. We have placed a referral with [facility] cardiology pharmaceutical worker. They will contact you for an appointment time. If you notice any worsening of your symptoms, or any new symptoms such as vomiting, diarrhea, fever, chills, shortness of breath, chest pain, numbness, weakness, or fainting , please return immediately to the emergency department for reevaluation. Please follow up with your primary care provider as soon as possible for reassessment and reevaluation. As always, it was a pleasure participating in your medical care today. [facility] General Date/Time Provider Initiated Documentation: 12/01/24 22:16. [facility] Narrative: This is a 29-year-old male with a known past medical history of Vbkys-Deerrbymu-Hmvku diagnosed here in the emergency department within the past month or so, psychiatric illness with depression and suicidality, depression, PTSD, reflux, who presents today for evaluation of suicidal ideations and chest pain. Review of records here in the emergency department, and also at [facility] on 10/08/2024 demonstrates that the patient has had 3 episodes in the past 2 months where he has presented with suicidal ideations but also chest pain. Patient has had previous workups performed which were fairly unremarkable with no significant concerning cardiac etiologies or abnormalities aside for the evidence of Gxvlz-Fncucbttx-Wjsvz. He has not been able to follow-up with her measurement and verification engineer. His most recent visit here was yesterday where he had suicidal ideations, and was safety plan at home. He states that at home tonight he again developed suicidal ideations wanting to kill himself. He states that he would do this by overdosing or by driving a car off a holli, or via other means. He also admits to right sided chest pain which she describes as sharp and achy, worse when he lies flat. But not improved when he leans forward. It occurred 30 minutes prior to arrival of EMS, which then subsequently brought him here. He denies any significant pleuritic component. He denies any trauma. He denies any fever or chills. No other complaints at this time. No tearing or ripping sensation. No long trips surgeries or procedures. No history of blood clots or PEs. No history of ACS. He is prescribed 3 medications, Abilify omeprazole and prazosin. He states he has been taking all of these except for his prazosin recently. He denies any IV or illicit drug use or alcohol use. Related Data Home Medications ?Medication ?Instructions ?Recorded ?Confirmed aripiprazole 20 mg tablet (Abilify) 10 mg PO DAILY 10/30/23 12/01/24 prazosin 1 mg capsule 1 mg PO DAILY 11/20/24 12/01/24 omeprazole 20 mg capsule,delayed 20 mg PO DAILY 11/23/24 12/01/24 release Allergies Allergy/AdvReac Type Severity Reaction Status Date / Time risperidone Allergy Mild tics Verified 12/01/24 22:35 General Stated Complaint: Chest Pain SOLANGE: 2 Exam Narrative Exam Narrative: 1.Const: Well-nourished, Well-developed, appearing stated age 2.Eyes: PERRL, no conjunctival injection, and symmetrical lids. 3.ENT: Atraumatic external nose and ears. Moist MM. Neck: Symmetric, trachea midline, No thyromegaly. 4.CVS: +S1/S2, Peripheral pulses 2+ and equal in all extremities. Brisk capillary refill in all extremities. 5.RESP: Unlabored respiratory effort. Clear to auscultation bilaterally. No wheezes rales or rhonchi. Patient does have reproducible chest pain over the right lower rib just under the right breast. No rash. No signs of trauma 6.GI: Soft, Nontender/Nondistended, No hepatosplenomegaly. No guarding or rebound. 7.MSK: Normocephalic/Atraumatic, Extremities w/o deformity or ttp No cyanosis or clubbing, Normal movement of all extremities 8.Skin: Warm, Dry. No rashes or lesions. 9.Neuro: area forester II-XII grossly intact. Sensation grossly intact, no focal neurologic deficits. 10.Psych: (AAO) x3. Flat affect Course Vital Signs Vital signs: Vital Signs Pulse 85 12/01/24 22:10 Respiratory Rate 16 12/01/24 22:10 Blood Pressure 137/76 12/01/24 22:10 Pulse Oximetry 96 12/01/24 22:10 Pulse 85 12/01/24 22:10 Respiratory Rate 16 12/01/24 22:10 Blood Pressure 137/76 12/01/24 22:10 Blood Pressure Position Sitting 12/01/24 22:10 Pulse Oximetry 96 12/01/24 22:10 Oxygen Delivery Method Room Air 12/01/24 22:10 Oxygen Flow Rate 0 12/01/24 22:10 Pain Level 10 12/01/24 22:10 Medical Decision Making This is a 29-year-old male with a known past medical history of Zkqcd-Cwohjmzaj-Shimp diagnosed here in the emergency department within the past month or so, psychiatric illness with depression and suicidality, depression, PTSD, reflux, who presents today for evaluation of suicidal ideations and chest pain. Review of records here in the emergency department, and also at [facility] on 10/08/2024 demonstrates that the patient has had 3 episodes in the past 2 months where he has presented with suicidal ideations but also chest pain. Patient has had previous workups performed which were fairly unremarkable with no significant concerning cardiac etiologies or abnormalities aside for the evidence of Zcjzu-Uwlgdoqcq-Xvedy. He has not been able to follow-up with her measurement and verification engineer. His most recent visit here was yesterday where he had suicidal ideations, and was safety plan at home. He states that at home tonight he again developed suicidal ideations wanting to kill himself. He states that he would do this by overdosing or by driving a car off a holli, or via other means. He also admits to right sided chest pain which she describes as sharp and achy, worse when he lies flat. But not improved when he leans forward. It occurred 30 minutes prior to arrival of EMS, which then subsequently brought him here. He denies any significant pleuritic component. He denies any trauma. He denies any fever or chills. No other complaints at this time. No tearing or ripping sensation. No long trips surgeries or procedures. No history of blood clots or PEs. No history of ACS. He is prescribed 3 medications, Abilify omeprazole and prazosin. He states he has been taking all of these except for his prazosin recently. He denies any IV or illicit drug use or alcohol use. Exam demonstrates a flat affect and male. Reproducible chest pain under the right breast on the rib. Suspect musculoskeletal etiology especially with his recent significant workups which were benign. Differential includes a notably less likely cardiac etiology/ACS. Also of concern is potential PE which is low likelihood based on risk factors. GERD is also of concern. Pneumothorax less likely with no history of trauma. Pneumonia unlikely with no cough. However we will evaluate for concerning etiologies get an EKG screening labs D-dimer and a chest x-ray. Will monitor closely and reassess. Will give GI cocktail and Toradol for pain control. EKG does show evidence of WPW without significant change compared to prior EKG. 12:39 AM Laboratory workup has returned, no significant abnormalities. D-dimer normal, troponin normal, proBNP normal, thyroid function normal, salicylates acetaminophen normal, alcohol negative. Urine drug screen negative. Chest x-ray negative for acute process. After GI cocktail patient is feeling much better. He feels that his symptoms may have been secondary to anxiety. He remains hemodynamically stable with no evidence of tacky dysrhythmia. He denies any episodes of syncope. I did contact [facility] cardiology, they recommend outpatient follow-up with electrophysiology with whom they will place a referral. They do not recommend any other interventions at this time. Pending evaluation by [facility]. 7 AM Patient was seen and assessed by [facility], they have safety plan the patient for home. Patient is on board with this and agrees. Patient remained stable throughout the night. With no other needed interventions. I have extensively reviewed the treatment plan and discharge instructions with the patient. I have addressed all patient concerns at this time. The patient was made aware of what symptoms to monitor for that would warrant a return to the emergency department. Discussed the plan with the patient, they demonstrate verbal understanding and agreement with our assessment and plan at this time. The documentation in this chart was dictated using Particle dictation software. Please excuse any dictation errors. FINDINGS: Lungs: No consolidation. Pleural spaces: No pleural effusion. No pneumothorax. Heart/Mediastinum: No cardiomegaly. Bones/joints: No acute fracture. IMPRESSION: Negative portable chest. Thank you for allowing us to participate in the care of your patient. Dictated and Authenticated by: Megan Ramirez MD 12/01/2024 11:42 PM Eastern Time ([place] & [place]) Quality:SDOH Health Related Social Needs: Health related social needs housing instability, housed, with risk of homelessness (Z59.811), problems related to housing/economic circumstances (Z59.89), feeling lonely/isolated (Z60.8) PFSH All Active Problems (Updated 12/02/24 @ 01:22 by Thiago Rouse DO) Guigx-Jbvfnpknb-Mtrpi pattern (Acute) Depression (Chronic) Suicidal ideation (Acute) Chest pain (Acute) Medical History Autism WPW (Radfx-Mtxwypeme-Sjrax syndrome) Social History Smoking/Tobacco Use Status: Former Tobacco Use Quit Date: 10/23/23 Tobacco: How many years used: 10 Smoking risk assessment performed?: Yes Alcohol Intake: current Alcohol Intake frequency: a few times a month Alcohol type: hard liquor Drug use: Current Sobriety Substance use type: marijuana Details: Pt states he is no longer using marijuana 11/30/24 Housing: homeless Do you feel safe at home: Yes (homeless) Do you feel safe in your relationship?: Yes Additional Social history: living at hotel 11/22/24
[2024-12-01 22:37] LABS: Abs Immature Grans 0.01 10^3/uL (0.0-0.06); Absolute Basophil Count 0.06 10^3/uL (0.0-0.2); Absolute Eosinophil Count 0.19 10^3/uL (0.0-0.7); Absolute Lymphocyte Count 3.19 10^3/uL (1.2-3.4); Absolute Monocyte Count 0.58 10^3/uL (0.1-0.8); Absolute Neutrophil Count 3.29 10^3/uL (1.2-6.7); Basophils % 0.8 %; Eosinophils % 2.6 %; HCT 42.9 % (40.0-50.0); HGB 14.9 g/dL (13.5-17.5); Immature Grans % 0.1 %; Lymphocytes % 43.6 %; MCH 30.8 pg (27.0-33.0); MCHC 34.7 % (32.0-36.0); MCV 89 fL (80-95); MPV 11.4 fL (8.0-11.0); Monocytes % 7.9 %; Platelet Count 216 10^3/uL (130-400); RBC 4.83 10^6/uL (4.36-5.78); RDW 11.9 % (11.8-14.1); RDW-SD 38.3 fL; WBC 7.32 10^3/uL (4.4-10.8)
[2024-12-01] MEDS: MYLANTA 30 ML, LIDOCAINE 2% VISCOUS UD 15 ML PO (22:39)
[2024-12-01] MEDS: Ketorolac 15 MG/ML VIAL IVP (22:39)
[2024-12-01 22:52] LABS: ETHANOL BLOOD < 3.0 mg/dL (<10)
[2024-12-01 22:58] LABS: PTT Activated 36.5 sec (20.6-30.2); Prothrombin Time 9.9 sec (9.1-11.1); Salicylate 4.3 mg/dL (<2.8)
[2024-12-01 22:59] LABS: Acetaminophen < 2 ug/mL (10-30)
[2024-12-01 23:02] LABS: ALT 77 U/L (16-63); AST 31 U/L (15-37); Albumin 3.8 g/dL (3.4-5.0); Alkaline Phosphatase 70 U/L (46-116); Anion Gap 8.7 mmol/L (3-11); BUN 11 mg/dL (7-18); Bilirubin, Total 0.29 mg/dL (0.2-1.0); CO2 29.3 mmol/L (21.0-32.0); CREATININE 0.9 mg/dL (0.70-1.30); Chloride 105 mmol/L (98-107); Estimated GFR 120.05 (mL/min/1.73m2); Glucose 106 mg/dL (74-106); Lipase 25 U/L (<78); NT-proBNP 7 pg/mL (<300); Potassium 3.6 mmol/L (3.5-5.1); Sodium 143 mmol/L (136-145); TSH (W/Ref FT4) 2.61 uIU/mL (0.36-3.74); Total Protein 7.5 g/dL (6.4-8.2); Troponin I 6 ng/L (<or=76)
[2024-12-01 23:04] LABS: D-Dimer 80 ng/mlFEU (<500)
[2024-12-01 23:06] LABS: Calcium 9.3 mg/dL (8.5-10.1)
[2024-12-01 23:26] LABS: *AMPHETAMINES SCREEN URINE Negative (Negative); *BARBITURATES SCREEN URINE Negative (Negative); *BENZODIAZEPINES SCREEN URINE Negative (Negative); Cannabinoids THC Negative (Negative); Cocaine Screen,Urine Negative (Negative); METHADONE URINE SCREEN Negative (Negative); OPIATES URINE SCREEN Negative (Negative); Tricyclic Antidepressants Negative (Negative)
--- NOTE | 2024-12-01 23:43 | DI.VRAD_ITS ---
PROCEDURE INFORMATION: Exam: XR Chest Exam date and time: 12/01/2024 10:50 PM Age: 29 years old Clinical indication: Right-sided; Patient HX: Right sided chest pain TECHNIQUE: Imaging protocol: Radiologic exam of the chest. Views: 1 view. COMPARISON: CR XR PORTABLE CHEST AP 11/28/2024 8:31 AM FINDINGS: Lungs: No consolidation. Pleural spaces: No pleural effusion. No pneumothorax. Heart/Mediastinum: No cardiomegaly. Bones/joints: No acute fracture. IMPRESSION: Negative portable chest. Dictated and Authenticated by: Megan Ramirez MD. Ordering:ALPESH Das MD
--- NOTE | 2024-12-02 21:10 | PDOC.MHCN_ITS ---
Date of service: 12/02/24 Time of Service: 21:10 Mental Health Emergency Note Release [facility] release signed:: Yes Reason for Visit Client is known to [facility], client shared he is on a wait list for DS program through [facility] however, currently is being served through the [facility] program. This is the client's re-assessment completed via tele health. In the last 2 weeks has the pt presented for ES prior to today?: Yes, presented at [facility] ED Client Information Client is: Adult Outpatient Well Housed: No,status: Not homeless, Stable housing Non Suicidal Self Injury Current: No History: No Safety Risk/Harm to Self or Others Current Ideation to Harm Self or Others: No Risk: Does risk to harm exist?: No Risk: Low Risk Duty to warn indicated: No Asssessment/Mental Status Appearance: Unremarkable Attitude: Cooperative Behavior: Unremarkable Speech: Normal Affect: Normal Mood: Anxious Thought process: Goal directed Hallucinations: No Delusions: No Attention: Unremarkable Perception: Not impaired Orientation: Fully orientated Memory: Intact Insight: Fair Judgement: Fair Neurovegetative Symptoms Sleep: No change Appetitie: No change Interests: No change Energy: No change Libido: Not applicable Substance Use: Do you use nicotine?: No Have you used substances in the last 7 days?: No Additional Issues: Assaultive/Threatening Behavior: No Medical Concerns: No Client engaged in active self harm w/weapon: No Threatening to run away: No Child reported abuse/neglect: No Voluntarily presenting for services: Yes Domestic violence is a concern: No Extreme Psychosis or extreme behavior is present: No Impression The client is a 29-year-old, single, male who is currently residing in the [facility] in [facility]. The client uses He/Him pronouns. All underrepresented identifiers were honored during this assessment. He reported that his symptoms are getting worse, and his mother is stressing him out yelling at him on the phone and being negative. The client stated that he is feeling better and did not need to be screened as he came in for chest pains. He said he was told by Todd to come to the ED. The client presents as normal from previous interactions. He makes eye contact and is cooperative and engaged. He denied SI and HI. He denied NSSI. He repo rted use of THC but only with his father and he is unsure how much his father put in. He denied use in the last week. Resources Reos[employer]ces reviewed and given:: 988 and Other Plan/Disposition Recommended Disposition: [facility] Services [facility] Services: Therapy. Plan: Client discharged on the same safety plan he recently developed on 11.30 with RAJEEV Arroyo. He did not want to do another safety plan. He did request that 988 be taken off as he has not found that to be helpful. Person reported agreement to plan: Yes Reports/communication Outcome discussed with: ED/Personnel
== END 2024-12-02 07:01 | disposition home or self-care (01) ==
PROVIDERS: Emergency Provider Student in an Organized Health Care Education/Training Program
DX: R07.9 Chest pain, unspecified (principal); I45.6 Pre-excitation syndrome; F32.A Depression, unspecified; F84.0 Autistic disorder; Z79.899 Other long term (current) drug therapy; Z87.891 Personal history of nicotine dependence
CPT/HCPCS: 00123; 36415; 80053; 80307; 83690; 93005; 96374; 99285; 71045; 80320; 80329; 83880; 84443; 84484; 85025; 85379; 85610; 85730; 93010; 99284; J1885

== ENCOUNTER 2024-12-02 17:44 | Emergency (ER) | payer MEDICAID, SELFPAY ==
[2024-12-02 17:56] VITALS: BP 138/84; PULSE 82; RESP 14; TEMP 36.9; O2SAT 98
[2024-12-02] MEDS: Omeprazole 20 MG CAPCR PO (18:11)
--- NOTE | 2024-12-02 18:32 | ED.GENADUL_ITS ---
Discharge Plan Disposition Patient Disposition: Home Condition: Stable Discharge Details Clinical Impression: Suicidal ideation, Depression, Uueon-Cfqoxfrfb-Fpggj pattern Primary Care Provider: None,None ED Provider: Jaqui Gama Home Meds and New Rx's Prescriptions: No Action omeprazole 20 mg capsule,delayed release(DR/EC) 20 mg PO DAILY aripiprazole [Abilify] 20 mg tablet 10 mg PO DAILY prazosin 1 mg capsule 1 mg PO DAILY Patient Comments: TAKE 1 CAPSULE BY MOUTH AT BEDTIME Discharge Instructions Instructions: Suicide Prevention Additional Instructions: You were seen in the emergency department today for evaluation of suicidal thoughts and feelings in the setting of life stressors and not having access to enough food. In our department a full physical examination performed and met with a member of our crisis team. You made a safety plan and we have provided you with some food for the evening, and you will meet with the social work coordinator to discuss food shelf and other resources tomorrow. Please follow-up with your primary care provider in the next few days to discuss this visit and any symptoms that change, worsen, or persist. Thank you for allowing us to be part of your care. HPI General Mode of arrival: EMS . Date/Time Provider Initiated Documentation: 12/02/24 17:54 . Limitations to Documentation: no limitations . Information obtained by: patient and old records reviewed . HPI Narrative: HPI: This is a 29-year-old male patient with a history of depression and suicidal ideation, Lprlm-Tfvcocghd-Vconx syndrome, who is presenting for evaluation by EMS of suicidal ideation. The patient was seen in this facility yesterday for the symptoms, at which time he had a full physical examination, an extensive cardiac workup including a negative D-dimer and troponin, and was discharged home on a safety plan. Today, the patient reports that his parent was supposed to bring him food, he had been residing in a hotel and did not have access to anything to eat. His parent called him several times throughout the day and was yelling at him and cursing at him, and just prior to him summoning EMS he states that his parent called him and said that she would not be bringing him any food after all. The patient reports that he began to feel suicidal, with a plan to jump in front of a vehicle or overdose on his medications. He states that he tried calling the [employer] line, and was told to seek care at the emergency department. The patient has not done anything today to try to harm himself. He states that he recently quit smoking nicotine and marijuana, does not drink alcohol. He states that he has difficulties remembering his medications, and has not taken them for the last few days. He is not currently experiencing tachycardia or chest pain. Exam: Gen: Awake and alert, in no apparent distress HEENT: Non-icteric sclera Neck: Supple Lungs: No apparent respiratory distress, normal respiratory effort. Equal CV: Appears well perfused, heart with regular rate and rhythm, no murmurs auscultated, strong distal pulses Abdomen: Non-distended MSK: Moves 4 extremities without apparent limitation in ROM Skin: Visualized skin without rashes, cyanosis. Neuro: Normal Gait, no obvious focal deficits or facial asymmetry. Speaks in full, clear sentences. Psych: Endorses suicidal ideation, no homicidal ideation or hallucinations reported. The patient is demonstrating a linear thought process and forward thinking. MDM: This is a 29-year-old male patient presenting for evaluation of suicidal ideation in the setting of social stressors and lack of access to food and nutrition. Differential includes but is not limited to primary psychiatric disorder, certainly considered withdrawal and intoxication syndromes is less consistent with the patient's history and physical examination. At this time I have a very low concern for cardiac abnormalities given his lack of tachycardia and chest pain as well as his extensive workup performed within the last 24 hours. He is able to maintain his oral intake when food is available, and given the brief duration that he has been without nutrition I do not have significant concern for metabolic and electrolyte derangements. The patient will be evaluated by [facility], he does meet criteria at this time for medical clearance without additional laboratory studies. I provided him with a dose of Prilosec which is a home med as well as a meal. ED Course: The patient met with the social work coordinator and the plan will be to discharge the patient home on a safety plan, provide him with a short course of food for the outpatient environment, with a plan to meet with the social work coordinator tomorrow to discuss food shelves and other resources. A discussion was had regarding the patient's phone, and he states the time are broken and that causes him to have difficulties taking his medications. They have a plan to work on that tomorrow during their check-in as well. At this time, the patient has had a full medical evaluation and is safe for discharge to home. They are hemodynamically stable, ambulatory, and tolerating PO. They are understanding of the follow-up plan and return precautions. They left our facility without incident. Jaqui Gama MD Related Data Home Medications ?Medication ?Instructions ?Recorded ?Confirmed aripiprazole 20 mg tablet (Abilify) 10 mg PO DAILY 10/30/23 12/01/24 prazosin 1 mg capsule 1 mg PO DAILY 11/20/24 12/01/24 omeprazole 20 mg capsule,delayed 20 mg PO DAILY 11/23/24 12/01/24 release Allergies Allergy/AdvReac Type Severity Reaction Status Date / Time risperidone Allergy Mild tics Verified 12/01/24 22:35 General Stated Complaint: PsychEval SOLANGE: 2 Course Vital Signs Vital signs: Vital Signs Temperature 36.9 C 12/02/24 17:56 Pulse 82 12/02/24 17:56 Respiratory Rate 14 12/02/24 17:56 Blood Pressure 138/84 12/02/24 17:56 Pulse Oximetry 98 12/02/24 17:56 Temperature 36.9 C 12/02/24 17:56 Temperature Source Tympanic 12/02/24 17:56 Pulse 82 12/02/24 17:56 Respiratory Rate 14 12/02/24 17:56 Blood Pressure 138/84 12/02/24 17:56 Blood Pressure Position Sitting 12/02/24 17:56 Pulse Oximetry 98 12/02/24 17:56 Oxygen Delivery Method Room Air 12/02/24 17:56 Oxygen Flow Rate 0 12/02/24 17:56 Pain Level 0 12/02/24 17:56 Medical Decision Making Quality:SDOH Health Related Social Needs: Health related social needs housing instability, house d, with risk of homelessness (Z59.811), food insecurity (Z59.41), material hardship(utilities) (Z59.12), transportation insecurity (Z59.82), problems related to housing/economic circumstances (Z59.89), problems finding work (Z56.9), feeling lonely/isolated (Z60.8) PFSH All Active Problems (Updated 12/02/24 @ 19:10 by Jaqui Gama MD) Wefgi-Lpbkjxdyy-Enzku pattern (Acute) Depression (Chronic) Suicidal ideation (Acute) Chest pain (Acute) Medical History Autism WPW (Lzskn-Qjudhbenl-Oedet syndrome) Social History Smoking/Tobacco Use Status: Former Tobacco Use Quit Date: 10/23/23 Tobacco: How many years used: 10 Smoking risk assessment performed?: Yes Alcohol Intake: current Alcohol Intake frequency: a few times a month Alcohol type: hard liquor Drug use: Current Sobriety Substance use type: marijuana Details: Pt states he is no longer using marijuana 11/30/24 Housing: homeless Do you feel safe at home: Yes (homeless) Do you feel safe in your relationship?: Yes Additional [facility] 11/22/24
--- NOTE | 2024-12-03 14:58 | PDOC.MHCN_ITS ---
Date of service: 12/02/24 Time of Service: 15:01 Mental Health Emergency Note Release [facility] release signed:: Yes Reason for Visit Client is known to [facility], client he is on a wait list for DS program through [facility] however, currently is being served through the [facility] program. This is the client's assessment for the second time in less than 24 hours. This assessment is completed via [employer]. The client was brought in via ambulance after an argument with his mother who is his payee. In the last 2 weeks has the pt presented for ES prior to today?: Yes, presented at [facility] ED Client Information Client is: Adult Outpatient Well Housed: No,status: Not homeless, Unstable housing Non Suicidal Self Injury Current: No History: No Safety Risk/Harm to Self or Others Current Ideation to Harm Self or Others: Yes to self. Intent: yes, has intent. Plan: no.does not have a plan. History of suicide attempt: No history of suicide attempt reported Risk: Does risk to harm exist?: yes. Risk: Moderate Risk Duty to warn indicated: No Asssessment/Mental Status Appearance: Well groomed Attitude: Cooperative Behavior: Unremarkable Speech: Normal Affect: Flat Mood: Stressed Thought process: Unremarkable Hallucinations: No Delusions: No Attention: Unremarkable Perception: Not impaired Orientation: Fully orientated Memory: Intact Insight: Fair Judgement: Poor Neurovegetative Symptoms Sleep: No change Appetitie: No change Interests: No change Energy: No change Libido: Not applicable Substance Use: Do you use nicotine?: No Have you used substances in the last 7 days?: yes, thc Additional Issues: Assaultive/Threatening Behavior: No Medical Concerns: No Client engaged in active self harm w/weapon: No Threatening to run away: No Child reported abuse/neglect: No Voluntarily presenting for services: Yes Domestic violence is a concern: No Extreme Psychosis or extreme behavior is present: Yes Impression The client is a 29-year-old, single, male who is currently residing in the [facility] in [facility]. The client uses He/Him pronouns. All underrepresented identifiers were honored during this assessment. He reported that his symptoms are getting worse, and his mother is stressing him out yelling at him on the phone and being negative. The client stated that he is feeling better and did not need to be screened as he came in for chest pains. He said he was told by Todd to come to the ED. The client presents for the second time in less than 12 hours. This time he presents with complaints that his mother has been telling him she would come to get him food and then did not come and was yelling and swearing at him. He ravishes eating food from the ED while we talked. He endorsed Si and rated himself a d7/10 currently and a 10/10 if he has to speak to his mother again. This clinician inquired if he could be safe if we got his some food to go home with, and supported him in getting food on 12.03.24 as well as, helping him to set up alarms in his phone as he reports that he has not been consistent with his medications. He was agreeable to this plan as long as he gets a ride back to the hotel as he does not want to walk 8 miles back. Resources Reosurces reviewed and given:: Other Plan/Disposition Recommended Disposition: [facility] Services [facility] Services: Other and Community resources. Plan: Client discharged back to the [facility] with food and [facility] supported a ride. Will discuss supporting the client in meeting needs in tomorrows huddle. Person reported agreement to plan: Yes Reports/communication Outcome discussed with: ED/Personnel
== END 2024-12-02 19:50 | disposition home or self-care (01) ==
PROVIDERS: Emergency Provider Emergency Medicine
DX: R45.851 Suicidal ideations (principal); F32.A Depression, unspecified; F84.0 Autistic disorder; I45.6 Pre-excitation syndrome; Z87.891 Personal history of nicotine dependence; Z59.00 Homelessness unspecified
CPT/HCPCS: 00123; 99284

== ENCOUNTER 2024-12-06 21:58 | Emergency (ER) | payer MEDICAID, SELFPAY ==
[2024-12-06] VITALS (18 sets, daily range): BP systolic 106–144; BP diastolic 55–81; PULSE 85–105; RESP 12–24; TEMP 36.3; O2SAT 94–97
--- NOTE | 2024-12-06 21:45 | RT.EKG_ITS ---
APPROVED REPORT Exam: Resting ECG Reason for Exam: Patient Location: E HR:101 bpm ECG Measurements Heart Rate 101 AXIS RI 109 P 40 QRSd 114 QRS -27 QT 339 T 142 QTc 441 Conclusion Sinus tachycardia. 101 LVH WPW unchanged from prior
--- NOTE | 2024-12-06 22:11 | NUR.NOTE ---
Nursing Note: Pt chose to speak to RNs and tech in a dispresectful manner about how he was not going to follow directions that the tech asked him to do while the EKG was being performed. RN told patient that he needed to be still and pt was then very angered. Spoke unkindly to RN who wanted to start the IV and behaved demandingly. RNs stepped out of room to give the patient a break. MD notified of patients behavior.
[2024-12-06 22:14] LABS: BE (Venous) 3 mmol/L (-2-3); HCO3 (Venous) 27 mmol/L (23-28); O2 Sat (Venous) 72 %; TCO2 (Venous) 24 mmol/L (24-29); pCO2 (Venous) 44 mmHg (41-51); pO2 (Venous) 37 mmHg
[2024-12-06 22:15] LABS: Abs Immature Grans 0.02 10^3/uL (0.0-0.06); Absolute Basophil Count 0.06 10^3/uL (0.0-0.2); Absolute Eosinophil Count 0.15 10^3/uL (0.0-0.7); Absolute Lymphocyte Count 3.75 10^3/uL (1.2-3.4); Absolute Monocyte Count 0.59 10^3/uL (0.1-0.8); Basophils % 0.6 %; Eosinophils % 1.6 %; HCT 47.4 % (40.0-50.0); HGB 16.3 g/dL (13.5-17.5); Immature Grans % 0.2 %; Lymphocytes % 39.6 %; MCH 30.8 pg (27.0-33.0); MCHC 34.4 % (32.0-36.0); MCV 90 fL (80-95); MPV 11.4 fL (8.0-11.0); Monocytes % 6.2 %; Neutrophils % 51.8 %; Platelet Count 232 10^3/uL (130-400); RBC 5.29 10^6/uL (4.36-5.78); RDW 11.8 % (11.8-14.1); RDW-SD 38.2 fL; WBC 9.47 10^3/uL (4.4-10.8)
[2024-12-06 22:30] LABS: INR 0.9 (0.9-1.1); PTT Activated 35.9 sec (20.6-30.2); Prothrombin Time 9.4 sec (9.1-11.1)
--- NOTE | 2024-12-06 22:30 | DI.RAD_ITS ---
Exam(s) XR PORTABLE CHEST AP EXAM: XR PORTABLE CHEST AP CLINICAL HISTORY: central chest pain TECHNIQUE: 2D digital imaging was performed. COMPARISON: CR,XR XR PORTABLE CHEST AP from 12/01/2024 FINDINGS: LUNGS: Clear. No pleural abnormality seen. HEART: Normal size. AORTA: Normal diameter. BONES: Unremarkable for age. Soft tissues: Unremarkable. IMPRESSION: No acute findings. DATA REPOSITORY: RADIATION DOSE DELIVERED:
[2024-12-06 22:33] LABS: ALT 87 U/L (16-63); Albumin 4.3 g/dL (3.4-5.0); Alkaline Phosphatase 79 U/L (46-116); Anion Gap 9.1 mmol/L (3-11); BUN 17 mg/dL (7-18); Bilirubin, Total 0.35 mg/dL (0.2-1.0); CO2 28.9 mmol/L (21.0-32.0); Chloride 103 mmol/L (98-107); Estimated GFR 105.79 (mL/min/1.73m2); Glucose 146 mg/dL (74-106); Potassium 4.3 mmol/L (3.5-5.1); Sodium 141 mmol/L (136-145); Total Protein 8.3 g/dL (6.4-8.2)
[2024-12-06 22:41] LABS: Calcium 9.4 mg/dL (8.5-10.1); Lipase 29 U/L (<78); TSH (W/Ref FT4) 3.38 uIU/mL (0.36-3.74); Troponin I 8 ng/L (<or=76)
[2024-12-06 22:48] LABS: AST 20 U/L (15-37)
[2024-12-06 23:16] LABS: D-Dimer 82 ng/mlFEU (<500)
[2024-12-06 23:32] LABS: Troponin I 9 ng/L (<or=76)
--- NOTE | 2024-12-06 23:35 | W.ED.GENAD ---
Discharge Plan Disposition Patient Disposition: Home Condition: Good Discharge Details Chief Complaint: Chest Pain Clinical Impression: Chest pain Primary Care Provider: None,None ED Provider: Thiago Rouse Home Meds and New Rx's Prescriptions: No Action omeprazole 20 mg capsule,delayed release(DR/EC) 20 mg PO DAILY aripiprazole [Abilify] 20 mg tablet 10 mg PO DAILY prazosin 1 mg capsule 1 mg PO DAILY Patient Comments: TAKE 1 CAPSULE BY MOUTH AT BEDTIME Discharge Instructions Additional Instructions: At this time your laboratory workup is returned reassuring. You will be reached out to by the care management team and [facility]. if you notice any worsening of your symptoms, or any new symptoms such as vomiting, diarrhea, fever, chills, shortness of breath, chest pain, numbness, weakness, or fainting , please return immediately to the emergency department for reevaluation. Please follow up with your primary care provider as soon as possible for reassessment and reevaluation. As always, it was a pleasure participating in your medical care today. HPI General Date/Time Provider Initiated Documentation: 12/06/24 22:02. HPI Narrative: This is a 29-year-old male with a known past medical history of Qkmkv-Ydezebkce-Nfiqx diagnosed here in the emergency department within the past month or so, psychiatric illness with depression and suicidality, depression, PTSD, reflux, who currently is residing at the [facility], but had been at the [facility] in. He presents today for chest pain. He has been here in the past month and a half about 8 times for similar symptoms. 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 He denies any syncope. He describes the chest pain as achy and in the center of his chest. He denies any vomiting or diarrhea. He admits to mild cough. No other complaints at this time. He states that he is also in need of significant resources outpatient. He states that he wants one-to-one help and care at his place of residence. He is currently a client for [facility]. Related Data Home Medications ?Medication ?Instructions ?Recorded ?Confirmed aripiprazole 20 mg tablet (Abilify) 10 mg PO DAILY 10/30/23 12/06/24 prazosin 1 mg capsule 1 mg PO DAILY 11/20/24 12/06/24 omeprazole 20 mg capsule,delayed 20 mg PO DAILY 11/23/24 12/06/24 release Allergies Allergy/AdvReac Type Severity Reaction Status Date / Time risperidone Allergy Mild tics Verified 12/06/24 22:03 General Stated Complaint: Chest Pain SOLANGE: 3 Exam Narrative Exam Narrative: 1.Const: Well-nourished, Well-developed, appearing stated age 2.Eyes: PERRL, no conjunctival injection, and symmetrical lids. 3.ENT: Atraumatic external nose and ears. Moist MM. Neck: Symmetric, trachea midline, No thyromegaly. 4.CVS: +S1/S2, Peripheral pulses 2+ and equal in all extremities. Brisk capillary refill in all extremities. 5.RESP: Unlabored respiratory effort. Clear to auscultation bilaterally. No wheezes rales or rhonchi 6.GI: Soft, Nontender/Nondistended, No hepatosplenomegaly. No guarding or rebound. 7.MSK: Normocephalic/Atraumatic, Extremities w/o deformity or ttp No cyanosis or clubbing, Normal movement of all extremities. No midline tenderness to palpation over the CTLS spine. Normal ROM in flexion, extension, side bend, and rotation. Patient has +5 out of 5 strength in the lower extremities in dorsiflexion and plantarflexion, knee flexion and extension, hip flexion and extension. Normal strength for dorsiflexion and plantar flexion of the great toe bilaterally. There is +2 over 2 dorsalis pedis pulses bilaterally. There is normal sensation to the skin with light touch at the foot, knee, and hip. Normal saddle sensation. Good sensation over the deep sural nerve area bilaterally. Rectal exam demonstrates good rectal tone with excellent arianna-rectal sensation. Reflexes are +2 over 4 in the patellar reflex bilaterally. +5 out of 5 strength in the medial, ulnar, radial nerve distribution bilaterally in the hands as well as intact light touch sensation to these dermatomes on the hands 8.Skin: Warm, Dry. No rashes or lesions. 9.Neuro: field research associate II-XII grossly intact. Sensation grossly intact, no focal neurologic deficits. 10.Psych: (AAO) x3. Appropriate mood and affect Course Vital Signs Vital signs: Vital Signs Temperature 36.3 C L 12/06/24 21:59 Pulse 105 H 12/06/24 21:59 Respiratory Rate 18 12/06/24 21:59 Pulse Oximetry 95 12/06/24 21:59 Temperature 36.3 C L 12/06/24 21:59 Temperature Source Temporal Artery Scan 12/06/24 21:59 Pulse 99 H 12/06/24 22:15 Pulse 90 12/06/24 23:20 Respiratory Rate 18 12/06/24 23:20 Respiratory Effort Normal 12/06/24 22:02 Respiratory Depth Normal 12/06/24 22:02 Respiratory Pattern Normal 12/06/24 22:02 Blood Pressure 136/81 12/06/24 22:30 Blood Pressure Mean 98 12/06/24 22:30 Blood Pressure Position Sitting 12/06/24 21:59 Pulse Oximetry 96 12/06/24 23:20 Oxygen Delivery Method Room Air 12/06/24 21:59 Oxygen Flow Rate 0 12/06/24 21:59 Lab/Test Results Lab/Test Results: Laboratory Tests Range/Units 12/06/24 12/06/24 22:07 22:09 WBC (4.4-10.8) 10^3/uL 9.47 RBC (4.36-5.78) 10^6/uL 5.29 Hgb (13.5-17.5) g/dL 16.3 Hct (40.0-50.0) % 47.4 MCV (80-95) fL 90 MCH (27.0-33.0) pg 30.8 MCHC (32.0-36.0) % 34.4 RDW (11.8-14.1) % 11.8 Plt Count (130-400) 10^3/uL 232 MPV (8.0-11.0) fL 11.4 H Immature Gran % % 0.2 Neutrophils % % 51.8 Lymphocytes % % 39.6 Monocytes % % 6.2 Eosinophils % % 1.6 Basophils % % 0.6 Nucleated RBC % (0.0-0.3) % 0.0 Absolute Neutrophils (1.2-6.7) 10^3/uL 4.90 Absolute Lymphocytes (1.2-3.4) 10^3/uL 3.75 H Absolute Monocytes (0.1-0.8) 10^3/uL 0.59 Absolute Eosinophils (0.0-0.7) 10^3/uL 0.15 Absolute Basophils (0.0-0.2) 10^3/uL 0.06 PT (9.1-11.1) sec 9.4 INR (0.9-1.1) 0.9 APTT (20.6-30.2) sec 35.9 H D-Dimer (<500) ng/mlFEU 82 VBG pH (7.31-7.41) 7.40 VBG pCO2 (41-51) mmHg 44 VBG pO2 mmHg 37 VBG HCO3 (23-28) mmol/L 27 VBG Total CO2 (24-29) mmol/L 24 VBG O2 Saturation % 72 VBG Base Excess (-2-3) mmol/L 3 Sodium (136-145) mmol/L 141 Potassium (3.5-5.1) mmol/L 4.3 Chloride (98-107) mmol/L 103 Carbon Dioxide (21.0-32.0) mmol/L 28.9 Anion Gap (3-11) mmol/L 9.1 BUN (7-18) mg/dL 17 Creatinine (0.70-1.30) mg/dL 1.0 Est GFR (CKD-EPI 2020) (mL/min/1.73m2) 105.79 Glucose (74-106) mg/dL 146 H Calcium (8.5-10.1) mg/dL 9.4 Total Bilirubin (0.2-1.0) mg/dL 0.35 AST (15-37) U/L 20 ALT (16-63) U/L 87 H Alkaline Phosphatase (46-116) U/L 79 Troponin I (<or=76) ng/L 8 Total Protein (6.4-8.2) g/dL 8.3 H Albumin (3.4-5.0) g/dL 4.3 Lipase (<78) U/L 29 TSH (0.36-3.74) uIU/mL 3.38 COVID-19 Source Cancelled SARS-CoV-2 (PCR) Cancelled Influenza Type A (PCR) Cancelled Influenza Type B (PCR) Cancelled RSV (PCR) Cancelled Medical Decision Making This is a 29-year-old male with a known past medical history of Ocvva-Numldrgqc-Wwnri diagnosed here in the emergency department within the past month or so, psychiatric illness with depression and suicidality, depression, PTSD, reflux, who currently is residing at the care bed, but had been at the [facility] in. He presents today for chest pain. He has been here in the past month and a half about 8 times for similar symptoms. 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 He denies any syncope. He describes the chest pain as achy and in the center of his chest. He denies any vomiting or diarrhea. He admits to mild cough. No other complaints at this time. He states that he is also in need of significant resources outpatient. He states that he wants one-to-one help and care at his place of residence. He is currently a client for [facility]. Exam demonstrates well-appearing male, minimal tachycardia, slight hypertension, no reproducible chest wall tenderness. No calf pain. Normal back exam with no signs of cauda equina syndrome. No other abnormalities. Differential is high for reflux, anxiety. He has had multiple quite thorough workups over the past month, including chest x-rays, multiple D-dimers and cardiac evaluations. We will rule out evidence of ACS or significant dysrhythmia. Will check chest x-ray to evaluate for new chest abnormality, will monitor closely and reassess. 11:48 PM I did contact [facility], and discussed the case with them. They state that they are working closely with him to get him help and resources on an outpatient basis. However this is more so from the nonmedical perspective. Patient does complain of regular stool incontinence that he has been having since he was a child. He states that it is secondary to his autism. He does not feel comfortable going back to his mother up in [place], and does not lived with her for months. He has gone back and forth from various places in [place] in [place] over the past few months. He is wishing that he can get into a snf. After discussions with [facility], I we will place a referral for care management to follow-up with the [facility] team. Patient was offered GI cocktail and anxiolytics and he has refused both. 11:52 PM Laboratory workup has returned, no white count bandemia or left shift. Troponins are normal, bilirubin normal. Thyroid function normal. EKG stable. Chest x-ray negative for acute process. Patient feels well and stable. Patient will be discharged. Referral has been placed for care management. Patient will go back to the care bed and we will recommend continued coordination of care not emergently outpatient for the patient. I have extensively reviewed the treatment plan and discharge instructions with the patient. I have addressed all patient concerns at this time. The patient was made aware of what symptoms to monitor for that would warrant a return to the emergency department. Discussed the plan with the patient, they demonstrate verbal understanding and agreement with our assessment and plan at this time. The documentation in this chart was dictated using [employer] dictation software. Please excuse any dictation errors. Care management referral has been placed. We request that they follow-up with the patient at the care bed, but also probably follow-up first with [facility] for outpatient coordination and planning. FINDINGS: Lungs: Unremarkable. No consolidation. Pleural spaces: Unremarkable. No pleural effusion. No pneumothorax. Heart/Mediastinum: Unremarkable. No cardiomegaly. Bones/joints: Unremarkable. IMPRESSION: No evidence for acute abnormality in the chest. Thank you for allowing us to participate in the care of your patient. Dictated and Authenticated by: Roseline Snow MD 12/06/2024 11:47 PM Eastern Time ([place] & [place]) Quality:SDOH Health Related Social Needs: Health related social needs housing instability, housed, with risk of homelessness (Z59.811), food insecurity (Z59.41), material hardship(utilities) (Z59.12), transportation insecurity (Z59.82), problems related to housing/economic circumstances (Z59.89), problems finding work (Z56.9), feeling lonely/isolated (Z60.8) PFSH All Active Problems (Updated 12/07/24 @ 00:01 by Thiago Rouse DO) Fixrw-Dsluatioa-Rdgbe pattern (Acute) Depression (Chronic) Suicidal ideation (Acute) Chest pain (Acute) Medical History Autism WPW (Qhply-Sdrscavax-Mbyla syndrome) Social History Smoking/Tobacco Use Status: Former Tobacco Use Quit Date: 10/23/23 Tobacco: How many years used: 10 Smoking risk assessment performed?: Yes Alcohol Intake: current Alcohol Intake frequency: a few times a month Alcohol type: hard liquor Drug use: Current Sobriety Substance use type: marijuana Details: Pt states he is no longer using marijuana 11/30/24 Housing: homeless Do you feel safe at home: Yes (homeless) Do you feel safe in your relationship?: Yes Additional Social history: living at [facility] 11/22/24
--- NOTE | 2024-12-06 23:47 | DI.VRAD_ITS ---
PROCEDURE INFORMATION: Exam: XR Chest Exam date and time: 12/06/2024 11:04 PM Age: 29 years old Clinical indication: Pain; Other: Central chesy pressure TECHNIQUE: Imaging protocol: Radiologic exam of the chest. Views: 1 view. Other technique: Portable exam. COMPARISON: CR XR PORTABLE CHEST AP 12/01/2024 10:50 PM FINDINGS: Lungs: Unremarkable. No consolidation. Pleural spaces: Unremarkable. No pleural effusion. No pneumothorax. Heart/Mediastinum: Unremarkable. No cardiomegaly. Bones/joints: Unremarkable. IMPRESSION: No evidence for acute abnormality in the chest. Dictated and Authenticated by: Roseline Snow MD. Ordering:ALPESH Das MD
[2024-12-07] VITALS: BP 117/59; PULSE 87; PULSE 88; RESP 13; O2SAT 95
[2024-12-07 00:01] VITALS: RESP 16; O2SAT 94
== END 2024-12-07 00:07 | disposition home or self-care (01) ==
PROVIDERS: Emergency Provider Student in an Organized Health Care Education/Training Program
DX: R07.9 Chest pain, unspecified (principal); I45.6 Pre-excitation syndrome; Z86.59 Personal history of other mental and behavioral disorders; Z59.811 Housing instability, housed, with risk of homelessness; Z59.41 Food insecurity; Z59.12 Inadequate housing utilities; Z59.82 Transportation insecurity; Z59.89 Other problems related to housing and economic circumstances; Z56.9 Unspecified problems related to employment; Z60.8 Other problems related to social environment
CPT/HCPCS: 36415; 80053; 82805; 83690; 87637; 93005; 99284; 71045; 84443; 84484; 85025; 85379; 85610; 85730; 93010

== ENCOUNTER 2024-12-09 19:30 | Emergency (ER) | payer MEDICAID, SELFPAY ==
--- NOTE | 2024-12-09 19:15 | RT.EKG_ITS ---
APPROVED REPORT Exam: Resting ECG Reason for Exam: chest pain Patient Location: E HR:94 bpm ECG Measurements Heart Rate 94 AXIS ME 107 P 53 QRSd 127 QRS -21 QT 357 T 139 QTc 448 Conclusion Sinus rhythm, rate 94 WPW, morphology unchanged from priors No STEMI
[2024-12-09 19:22] VITALS: BP 125/70; PULSE 95; RESP 20; TEMP 36.6; O2SAT 95
--- NOTE | 2024-12-09 19:30 | DI.RAD_ITS ---
Exam(s) XR CHEST 2V PA LATERAL EXAM: XR CHEST 2V PA LATERAL CLINICAL HISTORY: Chest pain. TECHNIQUE: 2D digital imaging was performed. COMPARISON: CR,XR XR PORTABLE CHEST AP from 12/06/2024 FINDINGS: 2 views: Heart size is normal. The mediastinum is not widened. Lungs are clear. No infiltrates nor pleural effusions. IMPRESSION: No acute pulmonary findings. DATA REPOSITORY: RADIATION DOSE DELIVERED:
--- NOTE | 2024-12-09 19:34 | ED.GENADUL_ITS ---
Discharge Plan Discharge Details Chief Complaint: PsychEval Clinical Impression: Suicidal ideation, Depression, Chest pain, Lgssf-Cygdsknsh-Bsdcs pattern Primary Care Provider: None,None ED Provider: Jaqui Gama Home Meds and New Rx's Prescriptions: No Action omeprazole 20 mg capsule,delayed release(DR/EC) 20 mg PO DAILY aripiprazole [Abilify] 20 mg tablet 10 mg PO DAILY prazosin 1 mg capsule 1 mg PO DAILY Patient Comments: TAKE 1 CAPSULE BY MOUTH AT BEDTIME HPI General Mode of arrival: EMS . Date/Time Provider Initiated Documentation: 12/09/24 19:31 . Limitations to Documentation: no limitations . Information obtained by: patient, EMS and old records reviewed . HPI Narrative: HPI: This is a 29-year-old transgender female patient presenting for evaluation of chest pain and suicidal ideation. The patient has a history of WPW, states that she was on the phone with her parent having an argument, and started to have chest pain about 20 minutes prior to arrival at our facility. It is located in the center of her chest, radiates to her upper abdomen, and has not worsened with position or palpation. She states she has not tried any medications in the outpatient environment for this pain, denies difficulty breathing, recent illness or injury. The patient states that she is having suicidal ideation and did attempt to cut the top of her wrist with a plastic knife, states that it was not successful and no wound is present on this provider's examination. She states that she is out of otherwise that she could kill herself, including hanging herself, jumping in front of traffic, etc. States that she called the addiction social worker at [facility] who recommended following the safety plan and remaining in the home. She states that the safety plan did not help her with these thoughts and feelings and they have persisted today Exam: Gen: Awake and alert, in no apparent distress HEENT: Non-icteric sclera Neck: Supple Lungs: No apparent respiratory distress, normal respiratory effort. Lung sounds clear and equal bilaterally CV: Appears well perfused, heart with regular rate and rhythm, no murmurs auscultated Abdomen: Non-distended, soft, nontender MSK: Moves 4 extremities without apparent limitation in ROM Skin: Visualized skin without rashes, cyanosis. No lacerations or cuts appreciated to the dorsal aspect of the right hand/wrist Neuro: Normal Gait, no obvious focal deficits or facial asymmetry. Speaks in full, clear sentences. Psych: Appropriate for situation. MDM: This is a 29-year-old transgender female patient presenting for evaluation of chest pain and suicidal ideation. Regarding the chest pain, my differential includes but is not limited to ACS including STEMI, NSTEMI, unstable angina, certainly considered arrhythmia, pericarditis/myocarditis, aortic pathology. Considered pulmonary abnormalities including pneumonia, bronchitis, pleural effusion, pulmonary edema, reactive airway disease, pneumothorax. The patient is without tachycardia, hypoxia, or a pleuritic component to his pain to significantly increase my concern for pulmonary embolism. No GI symptoms or vomiting to suggest Boerhaave's, esophagitis, peptic ulcer disease, pancreatitis. Considered musculoskeletal pathologies including costochondritis, chest wall pain. The patient's suicidal ideation is well-documented, and she has a history of depression, and I am most suspicious for primary psychiatric disturbance. I considered intoxication, withdrawal syndrome, no reported ingestions or other injuries sustained as a result of her suicidal ideation. We will obtain EKG, x-ray chest, and laboratory studies to include CBC, CMP, magnesium, troponin, urine drug screen. I offered the patient medications for chest pain including aspirin, Tylenol, Toradol, which patient has declined ED Course: I independently interpreted the patient's EKG, which shows a normal sinus rhythm with delta wave consistent with her historical WPW, no evidence for reentrant tachycardia or atrial fibrillation, no STEMI. I independently interpreted the laboratory studies, which show no significant leukocytosis, anemia, or thrombocytopenia. The chemistry panel is without evidence of electrolyte abnormality, kidney dysfunction, or liver injury other than an elevated ALT to 87 which has been present on prior studies. Lipase is low, and troponin was negative x 2 checks. Given this, as well as a chest x-ray that shows no acute abnormalities to explain her symptoms, I have a low suspicion for acute cardiac ischemia or other emergent cause of her symptoms. At this time the patient is medically cleared, and will be transitioned to zone B to meet with the addiction social worker to discuss her suicidal ideation. The patient met with the addiction social worker, had a discussion regarding coming inpatient, which at this time the patient is amenable and voluntarily agreeing to. The conversation was slightly volatile, as the patient and the addiction social worker both felt like the other was being rude to them per patient report. The addiction social worker informs me that if the patient was to attempt to leave the hospital we should reevaluate and consider placing the patient on an EE given that high suicidality reported on this examination. I ordered the patient's home meds, and the patient was signed out to the oncoming provider prior to final disposition. Remained calm, cooperative, and voluntary while under my care. Jaqui Gama MD Related Data Home Medications ?Medication ?Instructions ?Recorded ?Confirmed aripiprazole 20 mg tablet (Abilify) 10 mg PO DAILY 10/30/23 12/09/24 prazosin 1 mg capsule 1 mg PO DAILY 11/20/24 12/09/24 omeprazole 20 mg capsule,delayed 20 mg PO DAILY 11/23/24 12/09/24 release Allergies Allergy/AdvReac Type Severity Reaction Status Date / Time risperidone Allergy Mild tics Verified 12/09/24 19:31 General Stated Complaint: PsychEval SOLANGE: 2 Course Vital Signs Vital signs: Vital Signs Temperature 36.6 C 12/09/24 19:22 Pulse 95 H 12/09/24 19:22 Respiratory Rate 20 12/09/24 19:22 Blood Pressure 125/70 12/09/24 19:22 Pulse Oximetry 95 12/09/24 19:22 Temperature 36.6 C 12/09/24 19:22 Pulse 95 H 12/09/24 19:22 Respiratory Rate 20 12/09/24 19:22 Blood Pressure 125/70 12/09/24 19:22 Pulse Oximetry 95 12/09/24 19:22 Pain Level 10 12/09/24 19:22 Medical Decision Making Quality:SDOH Health Related Social Needs: Health related social needs housing instability, house d, with risk of homelessness (Z59.811), food insecurity (Z59.41), material hardship(utilities) (Z59.12), transportation insecurity (Z59.82), problems related to housing/economic circumstances (Z59.89), problems finding work (Z56.9), feeling lonely/isolated (Z60.8) PFSH All Active Problems (Updated 12/09/24 @ 22:39 by Jaqui Gama MD) Tmchz-Zguztokzc-Udqbt pattern (Acute) Depression (Chronic) Suicidal ideation (Acute) Chest pain (Acute) Medical History Autism WPW (Dcliq-Lewnwwfwz-Bllhd syndrome) Social History Smoking/Tobacco Use Status: Former Tobacco Use Quit Date: 10/23/23 Tobacco: How many years used: 10 Smoking risk assessment performed?: Yes Alcohol Intake: current Alcohol Intake frequency: a few times a month Alcohol type: hard liquor Drug use: Current Sobriety Substance use type: marijuana Details: Pt states he is no longer using marijuana 11/30/24 Housing: homeless Do you feel safe at home: Yes (homeless) Do you feel safe in your relationship?: Yes Additional Social history: living at hotel 11/22/24
[2024-12-09 20:05] LABS: Abs Immature Grans 0.02 10^3/uL (0.0-0.06); Absolute Basophil Count 0.06 10^3/uL (0.0-0.2); Absolute Eosinophil Count 0.14 10^3/uL (0.0-0.7); Absolute Lymphocyte Count 2.25 10^3/uL (1.2-3.4); Absolute Monocyte Count 0.43 10^3/uL (0.1-0.8); Basophils % 0.9 %; Eosinophils % 2.1 %; HCT 45.4 % (40.0-50.0); HGB 15.5 g/dL (13.5-17.5); Immature Grans % 0.3 %; Lymphocytes % 34.1 %; MCHC 34.1 % (32.0-36.0); MCV 91 fL (80-95); MPV 11.6 fL (8.0-11.0); Monocytes % 6.5 %; Neutrophils % 56.1 %; Platelet Count 229 10^3/uL (130-400); RDW 12.1 % (11.8-14.1)
[2024-12-09 20:10] LABS: Alkaline Phosphatase 68 U/L (46-116); Anion Gap 6.3 mmol/L (3-11); BUN 10 mg/dL (7-18); Bilirubin, Total 0.31 mg/dL (0.2-1.0); CO2 31.7 mmol/L (21.0-32.0); CREATININE 0.9 mg/dL (0.70-1.30); Calcium 8.7 mg/dL (8.5-10.1); Chloride 105 mmol/L (98-107); Estimated GFR 120.05 (mL/min/1.73m2); Glucose 136 mg/dL (74-106); Lipase 26 U/L (<78); Magnesium 1.8 mg/dL (1.8-2.4); Potassium 4.1 mmol/L (3.5-5.1); Sodium 143 mmol/L (136-145); Total Protein 7.8 g/dL (6.4-8.2); Troponin I 7 ng/L (<or=76)
[2024-12-09 20:21] LABS: ALT 87 U/L (16-63); AST 29 U/L (15-37)
[2024-12-09] MEDS: Aspirin 81 MG CHEW 324 MG CH (20:28)
[2024-12-09 20:32] LABS: *AMPHETAMINES SCREEN URINE Negative (Negative); *BARBITURATES SCREEN URINE Negative (Negative); *BENZODIAZEPINES SCREEN URINE Negative (Negative); Cannabinoids THC Negative (Negative); Cocaine Screen,Urine Negative (Negative); METHADONE URINE SCREEN Negative (Negative); OPIATES URINE SCREEN Negative (Negative)
[2024-12-09 20:35] LABS: Tricyclic Antidepressants Negative (Negative)
--- NOTE | 2024-12-09 20:44 | DI.VRAD_ITS ---
PROCEDURE INFORMATION: Exam: XR Chest Exam date and time: 12/09/2024 7:58 PM Age: 29 years old Clinical indication: Other: General chest pain TECHNIQUE: Imaging protocol: Radiologic exam of the chest. Views: 2 views. COMPARISON: CR XR PORTABLE CHEST AP 12/06/2024 11:04 PM FINDINGS: Lungs: Unremarkable. No consolidation. Pleural spaces: Unremarkable. No pleural effusion. No pneumothorax. Heart/Mediastinum: Unremarkable. No cardiomegaly. Bones/joints: Unremarkable. IMPRESSION: No evidence for acute abnormality in the chest. Dictated and Authenticated by: Roseline Snow MD. Ordering:YANIRA Malave MD
[2024-12-09 21:12] LABS: Troponin I 8 ng/L (<or=76)
--- NOTE | 2024-12-09 22:22 | PDOC.MHCN_ITS ---
Date of service: 12/09/24 Time of Service: 21:45 PHQ-9 Over the last 2 weeks, how often have you been bothered by any of the following problems? 1. Little interest or pleasure in doing things: nearly every day 2. Feeling down, depressed, or hopeless: nearly every day 3. Trouble falling or staying asleep, or sleeping too much: nearly every day 4. Feeling tired or having little energy: nearly every day 5. Poor appetite or overeating: nearly every day 6. Feeling bad about yourself - or that you are a failure or have let yourself and your family down: nearly every day 7. Trouble concentrating on things, such as reading the newspaper or watching television: nearly every day 8. Moving or speaking so slowly that other people could have noticed? - Or the opposite - being so fidgety or restless that you have been moving around a lot more than usual: nearly every day 9. Thoughts that you would be better off or of hurting yourself in some way: nearly every day Total score: 27 If you checked off any problems, how difficult have these problems made it for you to do your work, take care of things at home, or get along with other people?: extremely difficult Source: Developed by Drs. Odin Richter, Katiana Neri, Ab Sarah and colleagues, with an educational christine from [employer]. Suicide Severity Rate CSSRS Have you wished you were or wished you could go to sleep and not wake up?: Yes Have you actually had any thoughts of killing yourself?: Yes CSSRS2 Have you been thinking about how you might do this?: Yes Have you had these thoughts and had some intention of acting on them?: Yes Have you started to work out or worked out the details of how to kill yourself? Do you intend to carry out this plan?: Yes CSSRS3 Have you ever done anything, started to do anything or prepared to do anything to end your life?: No CSSRS4 Was this within the past three months?: No Screening Score Total Score: 4 Screening: Positive Mental Health Emergency Note Release [facility] release signed:: Yes Reason for Visit The client is known to [facility] and the crisis team has been involved numerous times over the last couple of months. Per the clients report he was last hospitalized at [facility] about 3 months ago, however reports that he was receiving DS services through [facility] before discontinuing services. The client was admitted to the care bed on 12/05/24 and discharged on 12/07/24. Tonight the client presents to [facility] ED with chief complaint of chest pains and then reports suicidal ideations after a verbal altercation with his parents. This marketing underwriter screens the client via telehealth for initial assessment. In the last 2 weeks has the pt presented for ES prior to today?: Yes, presented at [facility] ED, [facility] and [facility] Client Information Client is: Adult Outpatient Well Housed: No,status: Homeless Non Suicidal Self Injury Current: No History: No Safety Risk/Harm to Self or Others Current Ideation to Harm Self or Others: Yes to self. (The client reports active SI with multiple plans including hanging self or jumping out into traffic. When asked on a Likert scale the client reports 10/10, however reports to this marketing underwriter that it is actually greater than a 10. ) Intent: yes, has intent. Plan: yes,has a plan. History of suicide attempt: No history of suicide attempt reported Risk: Does risk to harm exist?: yes. Access to means: Yes. Types of Means: Medication. Details: The client has access to his prescribed medications in his hotel room as well as access to curtains and blankets, which he reports he would use in an attempt to hang self. The other plan was to jump out in front of traffic, which the client would have access to if he were to leave the hospital. . Counseling provided: No Risk: High Risk Duty to warn indicated: No Asssessment/Mental Status Appearance: Disheveled Attitude: Demanding and Hostile Behavior: Agitated Speech: Pressured Affect: Cogruent with mood Mood: Elevated, Stressed, Depressed, Irritable and Angry Thought process: Circumstational Hallucinations: No Delusions: No Attention: Unremarkable Perception: Not impaired Orientation: Fully orientated Memory: Intact Insight: Poor Judgement: Poor Neurovegetative Symptoms Sleep: Increase Appetitie: Decrease Interests: No change Energy: No change Libido: Not applicable Substance Use: Do you use nicotine?: No Have you used substances in the last 7 days?: No Additional Issues: Assaultive/Threatening Behavior: No Medical Concerns: No Client engaged in active self harm w/weapon: No Threatening to run away: No Child reported abuse/neglect: No Voluntarily presenting for services: Yes Domestic violence is a concern: No Extreme Psychosis or extreme behavior is present: No Impression The client is a single 29 y/o male that is currently staying in [place], [place] at the [facility], however is homeless as his parents kicked him out of their house During assessment today the client identifies as male, however it appears at different times that the client identifies as female. All screening tools are completed and all under represented categories are honored during the assessment. The client is sitting on bed dressed in paper attire and appears to be disheveled in appearance. The client reports to this marketing underwriter that he is currently in crisis due to the verbal altercation that he had with his parents via the phone this evening, which in turn caused chest pain and increased suicidal ideations. The client reports that he needs to be able to get into DS services through [facility] as he needs more support then what he is currently getting. This marketing underwriter reports that the client needs to outreach to his previous team to discontinue services as he cannot receive DS services through both organizations, however the client reports that he has not received services from [facility] since April of 2023. The client reports poor appetite and sleep stating that he has not been very hungry and he has been waking up frequently and has slept a lot throughout the day. During the assessment the client at times tends to become very agitated where he is raising his voice and reporting that this marketing underwriter that she does not care about him and want to help him. The client reports persistent suicidal ideations with numerous plans including jumping in front of traffic, hanging themselves or using knife to cut wrist. The client reports that after this marketing underwriter left last night he: sharpened a plastic knife and tried to use it on his wrists. The client reports: if you are to let me leave this hospital I will definitely kill myself tonight. When asked about intent the client reports: a 10/10, however it is higher than that, but I know that is as high as you ask. The client does not currently have access to means as he is in a controlled setting at [facility] ED, however if he were to be discharged from the hospital he would have access to means including his prescribed medications, curtain/ blanket that he reports that he would hang himself with and traffic that he reports that he would jump in front of. The client is unable to identify any deterrents at this time. At this time based on this writers assessment the client appears to be at imminent risk of harm to self and would meet criteria for an EE if he decided that he no longer wished to remain at [facility] voluntarily. Plan/Disposition Recommended Disposition: Hospitalization (Referrals will be sent for voluntary inpatient treatment, however if the client decides that he wants to leave an EE will be considered based on this writers assessment. ) No. Plan: Based on this writers assessment and the answers that the client provided the client is staying at [facility] voluntarily. This marketing underwriter will fax out referrals. This marketing underwriter had conversation based on answers provided and intent level of suicidal ideation that if the client attempted to leave an EE would be considered. Per this writers conversation with Dr. Gama she agrees with this plan. The client will be assessed daily until inpatient treatment is secured or the clients acuity level decreases and he is able to be safety planned back to the community. Person reported agreement to plan: Yes Reports/communication Outcome discussed with: ED/Personnel (Verbal report given to Dr. Norwood who agrees with disposition and also agrees that if the client attempts to leave an EE should be considered. )
[2024-12-09 22:25] VITALS: BP 127/77; PULSE 85; O2SAT 99
[2024-12-09] MEDS: Prazosin 1 MG CAP PO (22:29)
[2024-12-09] MEDS: ARIPiprazole 5 MG TAB 10 MG PO (22:29)
--- NOTE | 2024-12-10 08:30 | ED.PROG_ITS ---
Date of service: 12/10/24 Time of Service: 08:30 Medical Decision Making Patient is seeking voluntary placement for thoughts of self-harm, no reported issues with prior shift and currently no new acute complaints, will continue to monitor until safe disposition found Quality:SDOH Health Related Social Needs: Health related social needs housing instability, house d, with risk of homelessness (Z59.811), food insecurity (Z59.41), material hardship(utilities) (Z59.12), transportation insecurity (Z59.82), problems related to housing/economic circumstances (Z59.89), problems finding work (Z56.9), feeling lonely/isolated (Z60.8) Discharge Plan Discharge Details Chief Complaint: PsychEval Clinical Impression: Suicidal ideation, Depression, Chest pain, Wfptj-Ooumkqarf-Vefht pattern Primary Care Provider: None,None ED Provider: Luis Maninng Hancock Meds and New Rx's Prescriptions: No Action omeprazole 20 mg capsule,delayed release(DR/EC) 20 mg PO DAILY aripiprazole [Abilify] 20 mg tablet 10 mg PO DAILY prazosin 1 mg capsule 1 mg PO DAILY Patient Comments: TAKE 1 CAPSULE BY MOUTH AT BEDTIME
[2024-12-10] MEDS: ARIPiprazole 5 MG TAB 10 MG PO (09:14)
[2024-12-10 09:15] VITALS: BP 120/85; PULSE 78; TEMP 36; O2SAT 99
[2024-12-10] MEDS: Omeprazole 20 MG CAPCR PO (09:15)
--- NOTE | 2024-12-10 16:08 | CMSP_ITS ---
Date of service: 12/10/24 Time of Service: 16:08 Care Management Safety Plan Status Status: Voluntary Reason for Wait Reason for Wait: Inpatient Admission Safety Plan Safety Plan: VOLUNTARY FOR INPATIENT PSYCHIATRIC STABILIZATION.? Patient is appropriate in all interactions since arriving at [facility]; Pt has demonstrated appropriate coping and communication skills, has articulated his or her needs and concerns and is fully engaged during staff interactions. Safety plan has been established with patient, and care team, to adhere to patient goals, identify restrictions based on behavioral status, address nutrition, and determine allowed personal belongings, tools for hygiene and personal care. Determine level of activity including ambulation, level of superv ision, visitors, and determine privileges based on behaviors and level of engagement by pt. VOLUNTARY SAFETY PLAN: 1. Will remain on suicide precautions, in paper clothes 2. Will remain in Zone B under direct supervision of one-on-one staff at all times provided by [employer]; AUDIE, MANAGER FINANCIAL REPORTING virtual assistant for advertisers. 3. May have paper cups, plates, finger foods as well as a cardboard spoon with which to eat meals. 4. Follow [facility] Management of the Admitted Behavioral Health Patient policy. 5. Shower available in Zone B without restriction. 6. Personal belongings-soft items permitted at RN discretion. 7. Visitors-none at this time. 8. Activities: soft cart items, word search and music tablet approved, per RN discretion, as long as pt can maintain safety for themselves and others. 9.? Bathroom available in Zone B without restriction. 10. Phone: limited to supportive phone calls, using [facility] cordless phone, at RN discretion. Due to VOLUNTARY status, if patient wishes to leave [facility], staff will contact [facility] Crisis Screener ([phone]) and Manager Land ([phone]) as soon as possible. In the event of elopement, notify [place] [employer] ([phone]). Patient is currently voluntarily at [facility] and seeking inpatient admission when a bed becomes available. [facility] Frontline Cras will continue seeking placement. Please contact the Manager [employer] ([phone]) and [facility] Cras ([phone]) for any needed changes in the Safety Plan. Safety plan has been provided to interdepartmental care team.
--- NOTE | 2024-12-10 16:08 | PDOC.CMSAFE ---
Date of service: 12/10/24 Time of Service: 16:08 Care Management Safety Plan Status Status: Voluntary Reason for Wait Reason for Wait: Inpatient Admission Safety Plan Safety Plan: VOLUNTARY FOR INPATIENT PSYCHIATRIC STABILIZATION.? Patient is appropriate in all interactions since arriving at [facility]; Pt has demonstrated appropriate coping and communication skills, has articulated his or her needs and concerns and is fully engaged during staff interactions. Safety plan has been established with patient, and care team, to adhere to patient goals, identify restrictions based on behavioral status, address nutrition, and determine allowed personal belongings, tools for hygiene and personal care. Determine level of activity including ambulation, level of supervision, visitors, and determine privileges based on behaviors and level of engagement by pt. VOLUNTARY SAFETY PLAN: 1. Will remain on suicide precautions, in paper clothes 2. Will remain in Zone B under direct supervision of one-on-one staff at all times provided by [employer]; AUDIE, TOP PRECIPITATOR OPERATOR HELPER spray dry operator. 3. May have paper cups, plates, finger foods as well as a cardboard spoon with which to eat meals. 4. Follow [facility] Management of the Admitted Behavioral Health Patient policy. 5. Shower available in Zone B without restriction. 6. Personal belongings-soft items permitted at RN discretion. 7. Visitors-none at this time. 8. Activities: soft cart items, word search and music tablet approved, per RN discretion, as long as pt can maintain safety for themselves and others. 9.? Bathroom available in Zone B without restriction. 10. Phone: limited to supportive phone calls, using [facility] cordless phone, at RN discretion. Due to VOLUNTARY status, if patient wishes to leave [facility], staff will contact [facility] Crisis Screener ([phone]) and Robotics Technologist ([phone]) as soon as possible. In the event of elopement, notify [facility] Police ([phone]). Patient is currently voluntarily at [facility] and seeking inpatient admission when a bed becomes available. [facility] Frontline Cherry Picker Operator will continue seeking placement. Please contact the Robotics Technologist ([phone]) and [facility] Cherry Picker Operator ([phone]) for any needed changes in the Safety Plan. Safety plan has been provided to interdepartmental care team.
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
[2024-12-10] MEDS: Acetaminophen 325 MG TAB 650 MG PO (16:47)
[2024-12-10] MEDS: Prazosin 1 MG CAP PO (19:46)
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
--- NOTE | 2024-12-10 20:30 | RT.EKG_ITS ---
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
[2024-12-10 20:33] VITALS: BP 123/83; PULSE 84; RESP 20; TEMP 36.5; O2SAT 100
[2024-12-10 20:38] VITALS: RESP 18
--- NOTE | 2024-12-11 06:35 | ED.PROG_ITS ---
Date of service: 12/11/24 Time of Service: 06:35 Medical Decision Making Remains in ED pending voluntary placement for inpatient psychiatric admission for depression and SI. No issues overnight and no complaint of chest pain overnight. Taking medications without problems. Quality:SDOH Health Related Social Needs: Health related social needs housing instability, house d, with risk of homelessness (Z59.811), food insecurity (Z59.41), material hardship(utilities) (Z59.12), transportation insecurity (Z59.82), problems related to housing/economic circumstances (Z59.89), problems finding work (Z56.9), feeling lonely/isolated (Z60.8) Discharge Plan Discharge Details Chief Complaint: PsychEval Clinical Impression: Suicidal ideation, Depression, Chest pain, Xytem-Setbsfvhr-Gvpdk pattern Primary Care Provider: None,None ED Provider: Odin Jean Baptiste [place] and New Rx's Prescriptions: No Action omeprazole 20 mg capsule,delayed release(DR/EC) 20 mg PO DAILY aripiprazole [Abilify] 20 mg tablet 10 mg PO DAILY prazosin 1 mg capsule 1 mg PO DAILY Patient Comments: TAKE 1 CAPSULE BY MOUTH AT BEDTIME
[2024-12-11] MEDS: Omeprazole 20 MG CAPCR PO (07:43)
[2024-12-11] MEDS: ARIPiprazole 5 MG TAB 10 MG PO (07:54)
--- NOTE | 2024-12-11 07:54 | ED.PROG_ITS ---
Date of service: 12/11/24 Time of Service: 08:00 Medical Decision Making In brief, this is a 29-year-old transgender female patient boarding voluntarily in our emergency department for suicidal ideation. Prior to my taking over her care she had been medically cleared, and was awaiting final placement. [facility] was given. Patient transferred from this department without incident, remained hemodynamically appropriate while under my care. Jaqui Gama MD Medical Records Medical records reviewed: Yes I reviewed the patient's medical records. Lab Data Lab results reviewed: Yes I reviewed the patient's lab results. Quality:SDOH Health Related Social Needs: Health related social needs housing instability, house d, with risk of homelessness (Z59.811), food insecurity (Z59.41), material hardship(utilities) (Z59.12), transportation insecurity (Z59.82), problems related to housing/economic circumstances (Z59.89), problems finding work (Z56.9), feeling lonely/isolated (Z60.8) Discharge Plan Disposition Patient Disposition: Psychiatric Hospital/Unit Specific Psychiatric Facility: [facility] Condition: Stable Discharge Details Chief Complaint: PsychEval Clinical Impression: Suicidal ideation, Depression, Chest pain, Dzdsy-Iwfjghtvf-Uvoiw pattern Primary Care Provider: None,None ED Provider: Jaqui Gama Home Meds and New Rx's Prescriptions: No Action omeprazole 20 mg capsule,delayed release(DR/EC) 20 mg PO DAILY aripiprazole [Abilify] 20 mg tablet 10 mg PO DAILY prazosin 1 mg capsule 1 mg PO DAILY Patient Comments: TAKE 1 CAPSULE BY MOUTH AT BEDTIME
[2024-12-11 10:28] VITALS: BP 128/80; PULSE 79; RESP 16; TEMP 36.2; O2SAT 96
--- NOTE | 2024-12-11 16:14 | PDOC.CMPRO ---
Date of service: 12/11/24 Time of Service: 16:14 Care Management Progress Note Progress Note Text Progress Note Text: CM huddled with staff to discuss Afsaneh's plan of care. Per RN, Afsaneh has been appropriate in interactions, and has mostly been staying in her room today. CM spoke with [facility] about services in the community, as per CM's conversation with Afsaneh yesterday; [facility] stated that they are working on getting Afsaneh connected to case management through the DS program at [facility]. During the huddle, [facility] called and accepted the patient for transfer. Transport was arranged by ED staff. CM sent referrals for [facility], asking for follow up post hospitalization. Social Determinants of Health Screening Will the Patient Participate in the Screening?: Unable to obtain
--- NOTE | 2024-12-12 08:33 | PDOC.MHPN2 ---
Date of service: 12/11/24 Time of Service: 10:00 Mental Health Emergency Note Release [facility] release signed:: Yes Reason for Visit Client shared 08/30 SI. In the last 2 weeks has the pt presented for ES prior to today?: Yes, presented at Client Information Client is: Adult Outpatient Well Housed: No,status: Homeless Non Suicidal Self Injury Current: Yes, Client shared that she would walk into traffic. History: yes, Client said that she is a 10/10 and would carry out her plan to walk into traffic. Safety Risk/Harm to Self or Others Current Ideation to Harm Self or Others: Yes to self. Intent: yes, has intent. Plan: yes,has a plan. Risk: Does risk to harm exist?: yes. Risk: Low Risk Duty to warn indicated: No Asssessment/Mental Status Appearance: Disheveled Plan/Disposition Recommended Disposition: Hospitalization facilities contacted. Reports/communication Outcome discussed with: ED/Personnel
== END 2024-12-11 14:49 ==
PROVIDERS: Emergency Provider Emergency Medicine
DX: R45.851 Suicidal ideations (principal); F32.A Depression, unspecified; F84.0 Autistic disorder; I45.6 Pre-excitation syndrome
CPT/HCPCS: 00123; 80053; 80307; 83690; 93005; 96127; 99285; 71046; 83735; 84484; 85025; 93010

== ENCOUNTER 2024-12-15 01:15 | Emergency (ER) | payer MEDICAID, SELFPAY ==
--- NOTE | 2024-12-15 01:00 | RT.EKG_ITS ---
APPROVED REPORT Exam: Resting ECG Reason for Exam: chest pain Patient Location: E HR:86 bpm ECG Measurements Heart Rate 86 AXIS UT 110 P 60 QRSd 126 QRS -15 QT 363 T 156 QTc 434 Conclusion Sinus rhythm...normal P axis, V-rate 60- 99
[2024-12-15 01:20] VITALS: BP 144/78; PULSE 80; RESP 22; TEMP 36.1; O2SAT 96
[2024-12-15 01:23] VITALS: RESP 18
[2024-12-15 01:40] LABS: Abs Immature Grans 0.02 10^3/uL (0.0-0.06); Absolute Basophil Count 0.07 10^3/uL (0.0-0.2); Absolute Lymphocyte Count 3.68 10^3/uL (1.2-3.4); Absolute Monocyte Count 0.75 10^3/uL (0.1-0.8); Basophils % 0.8 %; Eosinophils % 2.2 %; HCT 45.2 % (40.0-50.0); HGB 15.3 g/dL (13.5-17.5); Immature Grans % 0.2 %; Lymphocytes % 39.9 %; MCH 30.5 pg (27.0-33.0); MCHC 33.8 % (32.0-36.0); MCV 90 fL (80-95); MPV 11.3 fL (8.0-11.0); Monocytes % 8.1 %; Neutrophils % 48.8 %; Platelet Count 195 10^3/uL (130-400); RBC 5.02 10^6/uL (4.36-5.78); RDW-SD 39.5 fL; WBC 9.22 10^3/uL (4.4-10.8)
[2024-12-15 01:55] LABS: INR 1.1 (0.9-1.1); PTT Activated 37.4 sec (20.6-30.2)
--- NOTE | 2024-12-15 01:59 | DI.RAD_ITS ---
Exam(s) XR CHEST 2V PA LATERAL EXAM: XR CHEST 2V PA LATERAL CLINICAL HISTORY: Chest pain. TECHNIQUE: 2D digital imaging was performed. COMPARISON: CR,XR XR CHEST 2V PA LATERAL from 12/09/2024 FINDINGS: 2 views: Heart size is normal. The mediastinum is not widened. Lungs are clear. No infiltrates nor pleural effusions. IMPRESSION: No acute pulmonary findings. DATA REPOSITORY: RADIATION DOSE DELIVERED:
[2024-12-15 02:03] LABS: ALT 79 U/L (16-63); AST 24 U/L (15-37); Alkaline Phosphatase 70 U/L (46-116); Anion Gap 5.7 mmol/L (3-11); BUN 9 mg/dL (7-18); Bilirubin, Total 0.24 mg/dL (0.2-1.0); CO2 30.3 mmol/L (21.0-32.0); CREATININE 0.9 mg/dL (0.70-1.30); Calcium 8.9 mg/dL (8.5-10.1); Chloride 106 mmol/L (98-107); Estimated GFR 120.05 (mL/min/1.73m2); Glucose 94 mg/dL (74-106); Lipase 31 U/L (<78); Magnesium 1.9 mg/dL (1.8-2.4); NT-proBNP 6 pg/mL (<300); Potassium 3.9 mmol/L (3.5-5.1); Sodium 142 mmol/L (136-145); Total Protein 7.7 g/dL (6.4-8.2); Troponin I 7 ng/L (<or=76)
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
--- NOTE | 2024-12-15 02:34 | DI.VRAD_ITS ---
PROCEDURE INFORMATION: Exam: XR Chest Exam date and time: 12/15/2024 1:55 AM Age: 29 years old Clinical indication: Chest pressure; Patient HX: Chest pain TECHNIQUE: Imaging protocol: Radiologic exam of the chest. Views: 2 views. COMPARISON: CR XR CHEST 2V PA LATERAL 12/09/2024 7:58 PM FINDINGS: Lungs: Unremarkable. No consolidation. Pleural spaces: Unremarkable. No pleural effusion. No pneumothorax. Heart/Mediastinum: Unremarkable. No cardiomegaly. Bones/joints: Unremarkable. IMPRESSION: No acute findings. Dictated and Authenticated by: Bernardino Manzo MD. Ordering:JOE Hunt MD
[2024-12-15 03:04] LABS: Troponin I 8 ng/L (<or=76)
[2024-12-15 04:06] VITALS: BP 146/99; PULSE 76; RESP 16; TEMP 37.1; O2SAT 98
== END 2024-12-15 04:15 | disposition home or self-care (01) ==
PROVIDERS: Emergency Provider Student in an Organized Health Care Education/Training Program
DX: R07.9 Chest pain, unspecified (principal); I45.6 Pre-excitation syndrome; F84.0 Autistic disorder; Z59.00 Homelessness unspecified; Z87.891 Personal history of nicotine dependence
CPT/HCPCS: 80053; 83690; 93005; 99285; 71046; 83735; 83880; 84484; 85025; 85610; 85730; 93010; 99284

== ENCOUNTER 2024-12-20 15:15 | Emergency (ER) | payer MEDICAID, SELFPAY ==
[2024-12-20 15:18] VITALS: BP 151/86; PULSE 87; RESP 15; TEMP 36.8; O2SAT 98
--- NOTE | 2024-12-20 15:49 | W.ED.GENAD ---
Discharge Plan Disposition Patient Disposition: Home Condition: Stable Discharge Details Clinical Impression: PTSD (post-traumatic stress disorder) Primary Care Provider: None,None ED Provider: Luis Manning Home Meds and New Rx's Prescriptions: Continued omeprazole 20 mg capsule,delayed release(DR/EC) 20 mg PO DAILY doxepin 10 mg capsule 10 mg PO DAILY aripiprazole [Abilify] 20 mg tablet 10 mg PO DAILY Patient Comments: forgets to take at times Discharge Instructions Additional Instructions: Follow-up with your primary care provider and [facility] If you feel more ill, or have thoughts of self-harm return to the emergency department for reevaluation HPI General Mode of arrival: ambulatory. Date/Time Provider Initiated Documentation: 12/20/24 15:17. Limitations to Documentation: no limitations. Information obtained by: patient. HPI Narrative: HISTORY OF PRESENT ILLNESS The patient presents for evaluation of PTSD. He was referred to our facility by the care home due to his escalating PTSD symptoms. A crisis team visited him yesterday but declined to provide assistance per the patient. The care home staff advised him to seek evaluation at the hospital. He reports experiencing flashbacks from childhood trauma and denies SI but states if he continues to not get help that he might start having thoughts. He also reports feelings of anxiety and believes he may be exhibiting signs of psychosis. He expresses a lack of safety in his current environment and fears that his condition could deteriorate further. He does not report any high fevers. He has a history of alcohol abuse and acknowledges a dependency on alcohol. He is unable to consume alcohol within the care home premises and lacks the financial means to procure it. However, he expresses a strong desire to drink and believes he would find a way to do so if necessary. Related Data Home Medications ?Medication ?Instructions ?Recorded ?Confirmed aripiprazole 20 mg tablet (Abilify) 10 mg PO DAILY 10/30/23 12/20/24 omeprazole 20 mg capsule,delayed 20 mg PO DAILY 11/23/24 12/20/24 release doxepin 10 mg capsule 10 mg PO DAILY 12/15/24 12/20/24 Allergies Allergy/AdvReac Type Severity Reaction Status Date / Time risperidone Allergy Mild tics Verified 12/09/24 19:31 General Stated Complaint: PsychEval SOLANGE: 2 Review of Systems All systems reviewed & are unremarkable except as noted in HPI and below Constitutional Constitutional: Denies chills, Denies fever(s) and Denies weakness Cardiovascular Cardiovascular: Denies chest pain and Denies dyspnea Respiratory Respiratory: Denies cough and Denies dyspnea Gastrointestinal Gastrointestinal: Denies abdominal pain, Denies nausea and Denies vomiting Musculoskeletal Musculoskeletal: Denies joint swelling Neurologic Neurologic: Denies weakness Psychiatric Psychiatric: Reports anxiety and Reports depression Exam Const General: no acute distress Orientation: alert HENMT Head: normal to inspection Ears: external ears normal General nose exam: external nose normal Mouth: moist mucous membranes Eyes General: appearance normal, both eyes and all related structures Neck Neck: normal visual inspection Resp Effort & Inspection: normal respiratory effort and able to speak in complete sentences Cardio Rate: regular rate Skin General skin exam: no rashes or lesions noted Neuro General: patient alert and patient oriented x3 Extrem General: normal to inspection Psych Speech and Movement: speech and movement normal Mood: anxious mood Course Vital Signs Vital signs: Vital Signs Temperature 36.8 C 12/20/24 15:18 Pulse 87 12/20/24 15:18 Respiratory Rate 15 12/20/24 15:18 Blood Pressure 151/86 H 12/20/24 15:18 Pulse Oximetry 98 12/20/24 15:18 Temperature 36.8 C 12/20/24 15:18 Temperature Source Oral 12/20/24 15:18 Pulse 87 12/20/24 15:18 Respiratory Rate 15 12/20/24 15:18 Blood Pressure 151/86 H 12/20/24 15:18 Blood Pressure Position Sitting 12/20/24 15:18 Pulse Oximetry 98 12/20/24 15:18 Oxygen Delivery Method Room Air 12/20/24 15:18 Oxygen Flow Rate 0 12/20/24 15:18 Medical Decision Making 29-year-old male with a history of Ehier-Zlkixmiwi-Hynvq, depression and PTSD comes in with reported worsening of his PTSD. He denies any SI but states that he does get help that he may start having thoughts. He denies any alcohol use today, lives in a care home so does not have access to alcohol. Denies any drug use. He does appear anxious on exam. Normal neurological exam otherwise. No deficits on exam. Given his reported worsening symptoms I will have him get a chest evaluated, he is medically cleared to see them. He has had labs recently that are reassuring and he is clinically sober so do not feel blood work indicated. Patient evaluated by mental health and will plan on discharge with a safety plan and outpatient follow-up. Patient is in agreement with this plan. Return precautions given Quality:SDOH Health Related Social Needs: Health related social needs problems related to housing/economic circumstances (Z59.89), problems with daily activities (Z73.9) PFSH All Active Problems (Updated 12/20/24 @ 17:51 by Luis Manning MD) PTSD (post-traumatic stress disorder) (Acute) Leqoz-Rhmewinvk-Oewht pattern (Acute) Depression (Chronic) Suicidal ideation (Acute) Chest pain (Acute) Medical History Autism WPW (Kzebk-Yinqlbsms-Tyvqu syndrome) Social History Smoking/Tobacco Use Status: Former Tobacco Use Quit Date: 10/23/23 Tobacco: How many years used: 10 Smoking risk assessment performed?: Yes Alcohol Intake: current Alcohol Intake frequency: 3 or more drinks per day Alcohol type: hard liquor Drug use: Daily Substance use type: marijuana Details: Pt states he is no longer using marijuana 11/30/24 Housing: homeless Do you feel safe at home: Yes (homeless) Do you feel safe in your relationship?: Yes Additional Social history: living at hotel 11/22/24
[2024-12-20 16:25] LABS: *AMPHETAMINES SCREEN URINE Negative (Negative); *BARBITURATES SCREEN URINE Negative (Negative); *BENZODIAZEPINES SCREEN URINE Negative (Negative); Cannabinoids THC Negative (Negative); Cocaine Screen,Urine Negative (Negative); METHADONE URINE SCREEN Negative (Negative); OPIATES URINE SCREEN Negative (Negative)
[2024-12-20 16:27] LABS: Tricyclic Antidepressants Negative (Negative)
--- NOTE | 2024-12-20 18:36 | NUR.NOTE ---
Nursing Note: Discharged with Safety Plan to [facility]. This newspaper writer called fdc to confirm that patient can return and was referred to banquet kitchen supervisor Lizeth [phone]. This newspaper writer contacted banquet kitchen supervisor who requested that this newspaper writer, read me the safety plan. This newspaper writer read the [facility] Safety Plan to Lizeth, who advised, that sounds like the previous safety plan and that didn't work for him. Lizeth further stated, we are not a mental health facility and we are not equipped to manage problems related to that. We have 20 adults here. This newspaper writer acknowledged the concerns and advised Lizeth that [facility] would have to contact her to discuss the efficacy of the safety plan. [facility] contacted and this newspaper writer received a call from Yuridia Khan who advised that she will contact Lizeth to discuss Afsaneh's (Ketan Braun) placement. Charge Nurse updated and advised that pt might need to stay the night in Zone [address]. Pt informed that he might have to stay the night, until fdc can be arranged. Pt agreeable and cooperative.
--- NOTE | 2024-12-20 20:47 | NUR.NOTE ---
Nursing Note: This RN spoke with [facility] who stated that this patient is reluctantly being accepted at the [facility]. The [facility] provider informed us that the patient would be dropped back off to the ER if there was any shift in his behavior. The [facility] employee, josé miguel, was less than enthusiastic in accepting this patient. There was a mutual agreement that this would be setting this patient up for failure if he were to go to a facility that already does not want him. Care management will be informed of this occurrence in the morning and a new plan will need to be formulated. The patient will remain in zone B for tonight where he is safe.
[2024-12-21 07:32] VITALS: BP 138/88; PULSE 71; RESP 20; TEMP 35.6; O2SAT 100
[2024-12-21] MEDS: ARIPiprazole 5 MG TAB 10 MG PO (08:05)
[2024-12-21] MEDS: Omeprazole 20 MG CAPCR PO (08:06)
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
--- NOTE | 2024-12-21 09:46 | ED.PROG_ITS ---
Date of service: 12/21/24 Time of Service: 09:46 Medical Decision Making Care assumed from outgoing provider. Patient is currently pending voluntary placement versus care management disposition. Will be reevaluated this morning. Patient has been evaluated by care management and [facility] a safety plan has been e nacted. Patient is stable for discharge home and was provided housing resources per care management. Quality:SDSC Health Related Social Needs: Health related social needs problems related to housin g/economic circumstances (Z59.89), problems with daily activities (Z73.9) Discharge Plan Disposition Patient Disposition: Home Condition: Stable Discharge Details Clinical Impression: PTSD (post-traumatic stress disorder) Primary Care Provider: None,None ED Provider: Gisselle Johnson Home Meds and New Rx's Prescriptions: Continued omeprazole 20 mg capsule,delayed release(DR/EC) 20 mg PO DAILY doxepin 10 mg capsule 10 mg PO DAILY aripiprazole [Abilify] 20 mg tablet 10 mg PO DAILY Patient Comments: forgets to take at times Discharge Instructions Additional Instructions: Follow-up with your primary care provider and [facility] human services If you feel more ill, or have thoughts of self-harm return to the emergency department for reevaluation
--- NOTE | 2024-12-21 13:59 | PDOC.CMPRO ---
Date of service: 12/21/24 Time of Service: 13:59 Care Management Progress Note Progress Note Text Progress Note Text: CM met with Afsaneh to discuss discharge planning considerations. Per report, she was cleared by [facility] yesterday, and together they made a safety plan for her to return to the [facility], and then she was not able to return to the prison because they are unable to accommodate her needs at this time. Afsaneh expressed frustration about this, because she stated that she was told she could return. CM discussed alternate options with her, including calling economic services, which she agreed to do. She asked for support with making the call because she didn't think she could stay calm during the phone call; CM asked about coping skills she has to help her remain calm. Her RN sat with her while she made the call, which she appreciated. Unfortunately, there are no open rooms available for the hotel voucher program currently. CM contacted [facility] to discuss alternate options, including the care bed and the [facility] in [place]. [facility] care bed is currently full, but they sent referrals to two care beds that my have openings, [facility] in [place] and [facility] in [place]. During this process, CASTRO was informed by Afsaneh's RN that her mother is on her way to pick her up, and that she agreed to let Afsaneh stay with her for a few days until another option is available. Afsaneh was discharged with the safety plan that she and [facility] created together. Social Determinants of Health Screening Will the Patient Participate in the Screening?: Declined to provide
== END 2024-12-21 14:33 | disposition home or self-care (01) ==
PROVIDERS: Emergency Medicine; Emergency Provider Emergency Medicine
DX: F43.10 Post-traumatic stress disorder, unspecified (principal); F41.9 Anxiety disorder, unspecified; Z59.89 Other problems related to housing and economic circumstances; Z73.9 Problem related to life management difficulty, unspecified
CPT/HCPCS: 00123; 80307; 96127; 99283; 99284

== ENCOUNTER 2025-03-09 19:51 | Emergency (ER) | payer MEDICAID, SELFPAY ==
[2025-03-09] VITALS (22 sets, daily range): BP systolic 104–137; BP diastolic 59–85; PULSE 79–108; RESP 11–22; TEMP 36.3–37; O2SAT 95–99
--- NOTE | 2025-03-09 19:45 | RT.EKG_ITS ---
APPROVED REPORT Exam: Resting ECG Reason for Exam: chest pain Patient Location: E HR:104 bpm ECG Measurements Heart Rate 104 AXIS LA 115 P 71 QRSd 128 QRS -24 QT 366 T 127 QTc 484 Conclusion Sinus tachycardia...rate> 99 Right atrial enlargement...P>0.25mV 2 lds or<-0.24mV aVR/aVL Nonspecific intraventricular conduction delay...QRSd >115mS, not LBBB/RBBB Repol abnrm, prob ischemia, anterolateral lds...ST dep, T neg, I aVL V2-V6 wPW no occlusive IN
--- NOTE | 2025-03-09 20:00 | DI.RAD_ITS ---
Exam(s) XR CHEST 2V PA LATERAL EXAM: XR CHEST 2V PA LATERAL CLINICAL HISTORY: Chest pain. TECHNIQUE: 2D digital imaging was performed. COMPARISON: CR,XR XR CHEST 2V PA LATERAL from 12/15/2024 FINDINGS: 2 views: Heart size is normal. The mediastinum is not widened. Lungs are clear. No infiltrates nor pleural effusions. IMPRESSION: No acute pulmonary findings.No significant change compared to 12/15/2024. DATA REPOSITORY: RADIATION DOSE DELIVERED:
[2025-03-09 20:13] LABS: Abs Immature Grans 0.02 10^3/uL (0.0-0.06); Absolute Basophil Count 0.08 10^3/uL (0.0-0.2); Absolute Eosinophil Count 0.19 10^3/uL (0.0-0.7); Absolute Lymphocyte Count 2.94 10^3/uL (1.2-3.4); Absolute Monocyte Count 0.73 10^3/uL (0.1-0.8); Basophils % 1.1 %; Eosinophils % 2.6 %; HCT 47.1 % (40.0-50.0); HGB 16.1 g/dL (13.5-17.5); Immature Grans % 0.3 %; Lymphocytes % 40.5 %; MCH 30.6 pg (27.0-33.0); MCHC 34.2 % (32.0-36.0); MCV 90 fL (80-95); MPV 11.7 fL (8.0-11.0); Monocytes % 10.1 %; Neutrophils % 45.4 %; Platelet Count 233 10^3/uL (130-400); RBC 5.26 10^6/uL (4.36-5.78); RDW-SD 39.1 fL; WBC 7.26 10^3/uL (4.4-10.8)
[2025-03-09 20:27] LABS: INR 0.9 (0.9-1.1); PTT Activated 38.8 sec (20.6-30.2); Prothrombin Time 9.3 sec (9.1-11.1)
[2025-03-09 20:36] LABS: ALT 115 U/L (16-63); AST 31 U/L (15-37); Albumin 4.4 g/dL (3.4-5.0); Alkaline Phosphatase 80 U/L (46-116); Anion Gap 10.5 mmol/L (3-11); BUN 12 mg/dL (7-18); Bilirubin, Total 0.4 mg/dL (0.2-1.0); CO2 24.5 mmol/L (21.0-32.0); CREATININE 1.1 mg/dL (0.70-1.30); Calcium 8.8 mg/dL (8.5-10.1); Chloride 105 mmol/L (98-107); Estimated GFR 93.77 (mL/min/1.73m2); Glucose 121 mg/dL (74-106); Lipase 30 U/L (<78); Magnesium 1.9 mg/dL (1.8-2.4); Potassium 3.8 mmol/L (3.5-5.1); Sodium 140 mmol/L (136-145); Total Protein 8.3 g/dL (6.4-8.2); Troponin I 21 ng/L (<or=76)
[2025-03-09 20:37] LABS: NT-proBNP < 5 pg/mL (<300)
[2025-03-09 20:41] LABS: D-Dimer 110 ng/mlFEU (<500)
--- NOTE | 2025-03-09 20:46 | DI.VRAD_ITS ---
PROCEDURE INFORMATION: Exam: XR Chest Exam date and time: 03/09/2025 8:20 PM Age: 30 years old Clinical indication: Chest wall pain; Additional info: Chest pain TECHNIQUE: Imaging protocol: Radiologic exam of the chest. Views: 2 views. COMPARISON: CR XR CHEST 2V PA LATERAL 12/15/2024 1:55 AM FINDINGS: Lungs: No consolidation. Pleural spaces: Unremarkable. No pleural effusion. No pneumothorax. Heart/Mediastinum: Unremarkable. No cardiomegaly. Bones/joints: Unremarkable. IMPRESSION: No acute findings. Dictated and Authenticated by: Jeri Boudreaux MD. Orderin Radames Hunt MD
[2025-03-09 21:16] LABS: Troponin I 18 ng/L (<or=76)
[2025-03-09] MEDS: Acetaminophen 500 MG TAB 1000 MG PO (21:59)
[2025-03-09 22:05] LABS: Troponin I 18 ng/L (<or=76)
--- NOTE | 2025-03-09 23:10 | W.ED.GENAD ---
Discharge Plan Disposition Patient Disposition: Home Condition: Good Discharge Details Clinical Impression: Chest pain, Fpgaf-Edwjllbqr-Vknjl (WPW) syndrome Primary Care Provider: Reema Del Cid ED Provider: Marilee Crum Home Meds and New Rx's Prescriptions: Continued lithium carbonate 300 mg capsule 300 mg PO TID clonidine HCl 0.1 mg tablet 0.1 mg PO PRN omeprazole 20 mg capsule,delayed release(DR/EC) 20 mg PO DAILY Qty: 90 3RF doxepin 10 mg capsule 10 mg PO DAILY aripiprazole [Abilify] 20 mg tablet 10 mg PO DAILY Patient Comments: forgets to take at times Discharge Instructions Instructions: Lopsp-Bahwjusxn-Ohciu syndrome, Chest Pain, Adult ED Additional Instructions: You will need to followup with cardiology. A [place] has been [place] to [facility] they should call you to schedule an appointment. If you do not hear from them by Tuesday, please call [phone] to schedule an appointment. Call your primary care doctor on Tuesday to schedule an appointment for within the following 48 hours to followup on your visit here. At that visit discuss your chest pain, your coagulation studies, and whether or not you should get an outpatient stress test. Return to the emergency department for new or worsening symptoms including new/different/worse chest pain, difficulty breathing, feeling like you are going to pass out, or if you have any other concerns. Referrals: Reema Del Cid MD [Primary Care Provider] - [facility] General Mode of arrival: EMS. Date/Time Provider Initiated Documentation: 03/09/25 20:05. Limitations to Documentation: no limitations. Information obtained by: patient. HPI Narrative: 30yo M with hx WpW presenting for chest pain. Started about 30 minutes prior to arrival, dull substernal, non-radiating. No alleviating or aggravating factors. Associated 'hot flash' with lightheadedness and nausea; these have since resolved though chest pain persists. Some shortness of breath, unable to clarify this sensation further. Given 324 of ASA from EMS prior to arrival. Otherwise in his usual state of health with no fevers, chills, rash, vomiting, abdominal pain, numbness, weakness, dysuria, hematuria, or other concerns. Related Data Home Medications ?Medication ?Instructions ?Recorded ?Confirmed aripiprazole 20 mg tablet (Abilify) 10 mg PO DAILY 12/10/23 04/19/25 doxepin 10 mg capsule 10 mg PO DAILY 12/15/24 03/09/25 clonidine HCl 0.1 mg tablet 0.1 mg PO PRN 01/23/25 03/09/25 lithium carbonate 300 mg capsule 300 mg PO TID 01/23/25 03/09/25 omeprazole 20 mg capsule,delayed 20 mg PO DAILY #90 caps 02/27/25 03/09/25 release Previous Rx's ?Medication ?Instructions ?Recorded omeprazole 20 mg capsule,delayed 20 mg PO DAILY #90 caps 02/27/25 release Allergies Allergy/AdvReac Type Severity Reaction Status Date / Time risperidone Allergy Mild tics Verified 03/09/25 19:58 General Stated Complaint: Chest Pain SOLANGE: 2 Review of Systems Narrative: see HPI Exam Narrative Exam Narrative: General: Alert, well appearing, well nourished, in no acute distress. Head: Normocephalic, atraumatic Neck: Trachea midline, ?Neck supple. ENT: ?MMM.? No oropharygeal lesions or exudate. Cardiac: ?RRR, no murmurs appreciated Resp: No respiratory distress. CTAB. Abd: ?Soft, non-distended, nontender : ?No suprapubic tenderness. N Extremities: ?No deformities.? No peripheral edema. Neurologic: GCS 15. ? Moves all extremities freely against gravity Course Vital Signs Vital signs: Vital Signs Temperature 37.0 C 03/09/25 19:52 Pulse 100 H 03/09/25 19:52 Respiratory Rate 22 03/09/25 19:52 Blood Pressure 137/85 03/09/25 19:52 Pulse Oximetry 96 03/09/25 19:52 Temperature 36.3 C L 03/09/25 21:41 Temperature Source Temporal Artery Scan 03/09/25 21:41 Pulse 83 03/09/25 21:50 Pulse 85 03/09/25 21:50 Respiratory Rate 16 03/09/25 21:50 Blood Pressure 124/65 03/09/25 21:46 Blood Pressure Mean 83 03/09/25 21:46 Pulse Oximetry 97 03/09/25 21:50 Oxygen Delivery Method Room Air 03/09/25 21:41 Oxygen Flow Rate 0 03/09/25 21:41 Pain Level 2 03/09/25 21:59 Comment RN notified 03/09/25 21:41 Lab/Test Results Lab/Test Results: Laboratory Tests Range/Units 03/09/25 03/09/25 03/09/25 19:58 20:48 21:40 WBC (4.4-10.8) 10^3/uL 7.26 RBC (4.36-5.78) 10^6/uL 5.26 Hgb (13.5-17.5) g/dL 16.1 Hct (40.0-50.0) % 47.1 MCV (80-95) fL 90 MCH (27.0-33.0) pg 30.6 MCHC (32.0-36.0) % 34.2 RDW (11.8-14.1) % 12.0 Plt Count (130-400) 10^3/uL 233 MPV (8.0-11.0) fL 11.7 H Immature Gran % % 0.3 Neutrophils % % 45.4 Lymphocytes % % 40.5 Monocytes % % 10.1 Eosinophils % % 2.6 Basophils % % 1.1 Nucleated RBC % (0.0-0.3) % 0.0 Absolute Neutrophils (1.2-6.7) 10^3/uL 3.30 Absolute Lymphocytes (1.2-3.4) 10^3/uL 2.94 Absolute Monocytes (0.1-0.8) 10^3/uL 0.73 Absolute Eosinophils (0.0-0.7) 10^3/uL 0.19 Absolute Basophils (0.0-0.2) 10^3/uL 0.08 PT (9.1-11.1) sec 9.3 INR (0.9-1.1) 0.9 APTT (20.6-30.2) sec 38.8 H D-Dimer (<500) ng/mlFEU 110 Sodium (136-145) mmol/L 140 Potassium (3.5-5.1) mmol/L 3.8 Chloride (98-107) mmol/L 105 Carbon Dioxide (21.0-32.0) mmol/L 24.5 Anion Gap (3-11) mmol/L 10.5 BUN (7-18) mg/dL 12 Creatinine (0.70-1.30) mg/dL 1.1 Est GFR (CKD-EPI 2020) (mL/min/1.73m2) 93.77 Glucose (74-106) mg/dL 121 H Calcium (8.5-10.1) mg/dL 8.8 Magnesium (1.8-2.4) mg/dL 1.9 Total Bilirubin (0.2-1.0) mg/dL 0.4 AST (15-37) U/L 31 ALT (16-63) U/L 115 H Alkaline Phosphatase (46-116) U/L 80 Troponin I (<or=76) ng/L 21 18 18 NT-Pro-B Natriuret Pep (<300) pg/mL < 5 Total Protein (6.4-8.2) g/dL 8.3 H Albumin (3.4-5.0) g/dL 4.4 Lipase (<78) U/L 30 Medical Decision Making 30yo M with hx WpW presenting for chest pain. Started about 30 minutes prior to arrival, dull substernal, non-radiating. Given 324 of ASA from EMS prior to arrival. Slightly tachycardiac at 100 on arrival, vital signs otherwise reassuring. Given tylenol for pain here. -EKG shows WpW, no clear ischemic changes on my read. -Labs reviewed as below, CBC reassuring with no leukocytosis or anemia, CMP with no actionable abnormalities, mildly elevated PTT otherwise normal coags including normal dimer (would not further pursue pulmonary embolism with CT imaging), lipase not suggestive of pancreatitis, BNP not suggestive of heart failure, troponins 21, 18, 18. -CXR independently reviewed, no focal pneumonia or pneumothorax on my view; radiology read with no acute findings. HEART score low risk. Given WpW, consulted with [facility] [place] Araujo who graciously reviewed EKG and agrees no acute ischemic changes. Advised cardiology followup for WpW and likely outpatient stress test. On reassessment patient reports pain has improved. Feels back to normal. HR in 80's. Discharged home; discharge instructions and return precautions were reviewed with patient who verbalized understanding. All questions were answered and he is in full agreement with the plan. Imaging Data Radiologic Study: Imaging: X-Ray Lab Data Lab results reviewed: Yes I reviewed the patient's lab results. Labs: Laboratory Tests Range/Units 03/09/25 03/09/25 03/09/25 19:58 20:48 21:40 WBC (4.4-10.8) 10^3/uL 7.26 RBC (4.36-5.78) 10^6/uL 5.26 Hgb (13.5-17.5) g/dL 16.1 Hct (40.0-50.0) % 47.1 MCV (80-95) fL 90 MCH (27.0-33.0) pg 30.6 MCHC (32.0-36.0) % 34.2 RDW (11.8-14.1) % 12.0 Plt Count (130-400) 10^3/uL 233 MPV (8.0-11.0) fL 11.7 H Immature Gran % % 0.3 Neutrophils % % 45.4 Lymphocytes % % 40.5 Monocytes % % 10.1 Eosinophils % % 2.6 Basophils % % 1.1 Nucleated RBC % (0.0-0.3) % 0.0 Absolute Neutrophils (1.2-6.7) 10^3/uL 3.30 Absolute Lymphocytes (1.2-3.4) 10^3/uL 2.94 Absolute Monocytes (0.1-0.8) 10^3/uL 0.73 Absolute Eosinophils (0.0-0.7) 10^3/uL 0.19 Absolute Basophils (0.0-0.2) 10^3/uL 0.08 PT (9.1-11.1) sec 9.3 INR (0.9-1.1) 0.9 APTT (20.6-30.2) sec 38.8 H D-Dimer (<500) ng/mlFEU 110 Sodium (136-145) mmol/L 140 Potassium (3.5-5.1) mmol/L 3.8 Chloride (98-107) mmol/L 105 Carbon Dioxide (21.0-32.0) mmol/L 24.5 Anion Gap (3-11) mmol/L 10.5 BUN (7-18) mg/dL 12 Creatinine (0.70-1.30) mg/dL 1.1 Est GFR (CKD-EPI 2020) (mL/min/1.73m2) 93.77 Glucose (74-106) mg/dL 121 H Calcium (8.5-10.1) mg/dL 8.8 Magnesium (1.8-2.4) mg/dL 1.9 Total Bilirubin (0.2-1.0) mg/dL 0.4 AST (15-37) U/L 31 ALT (16-63) U/L 115 H Alkaline Phosphatase (46-116) U/L 80 Troponin I (<or=76) ng/L 21 18 18 NT-Pro-B Natriuret Pep (<300) pg/mL < 5 Total Protein (6.4-8.2) g/dL 8.3 H Albumin (3.4-5.0) g/dL 4.4 Lipase (<78) U/L 30 Quality:[place] Health Related Social Needs: Health related social needs problems related to housing/economic circumstances (Z59.89), problems with daily activities (Z73.9) Health related social needs details resident of care beds [facility] All Active Problems (Updated 03/09/25 @ 23:18 by Marilee Crum MD) Chwkl-Fccbkalqc-Dfkck (WPW) syndrome (Acute) Chest pain (Acute) Urinary and fecal incontinence (Acute) 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 Father Depression PTSD (post-traumatic stress disorder) Brother Diabetes Type 1 Seizure Maternal Grandmother Dementia Social History (Updated 01/30/25 @ 10:17 by Reema Del Cid MD) Smoking/Tobacco Use Status: Former Tobacco Use Quit Date: 10/23/23 Tobacco: How many years used: 10 Smoking risk assessment performed?: Yes Alcohol Intake: current Alcohol Intake frequency: 3 or more drinks per day Alcohol type: hard liquor Drug use: Daily Substance use type: marijuana Details: Pt states he is no longer using marijuana 11/30/24 Household members: family Housing: house What is your relationship status?: never Panel score (0-1 are the most socially isolated patients): 0 Do you feel safe at home: Yes (homeless) Do you feel safe in your relationship?: Yes
== END 2025-03-09 23:39 | disposition home or self-care (01) ==
PROVIDERS: Emergency Provider Student in an Organized Health Care Education/Training Program; PCP Family Medicine
DX: R07.9 Chest pain, unspecified (principal); Z59.89 Other problems related to housing and economic circumstances; Z73.9 Problem related to life management difficulty, unspecified; I45.6 Pre-excitation syndrome
CPT/HCPCS: 36415; 80053; 83690; 93005; 99284; 71046; 83735; 83880; 84484; 85025; 85379; 85610; 85730; 93010

== ENCOUNTER 2025-03-10 22:43 | Emergency (ER) | payer MEDICAID, SELFPAY ==
[2025-03-10 22:43] VITALS: BP 131/84; PULSE 96; RESP 18; TEMP 36.7; O2SAT 97
--- NOTE | 2025-03-10 22:45 | DI.RAD_ITS ---
Exam(s) XR LUMBAR SPINE COMPLETE EXAM: XR LUMBAR SPINE COMPLETE CLINICAL HISTORY: Back Pain after fall. TECHNIQUE: 2D digital imaging was performed of the lumbar spine. Five images were obtained. AP, la teral, right oblique, left oblique and L5-S1 spot views were obtained. COMPARISON: No exams were available for comparison FINDINGS: BONES: No fracture or destructive lesion. Vertebral bodies are unremarkable. No facet hypertrophy papa ntified. DISKS: Intervertebral disc spaces are maintained. ALIGNMENT: Lumbar spinal alignment is within normal limits. No spondylolysis or spondylolisthesis. SOFT TISSUE: Normal. IMPRESSION: 1. No acute fracture or subluxation in the lumbar spine. 2. The preliminary V Rad report was reviewed. DATA REPOSITORY: RADIATION DOSE DELIVERED:
--- NOTE | 2025-03-10 22:45 | DI.RAD_ITS ---
Exam(s) XR THORACIC SPINE COMPLETE EXAM: XR THORACIC SPINE COMPLETE CLINICAL HISTORY: fall, hit back, pain at T6-L3 on Right. TECHNIQUE: 2D digital imaging was performed of the thoracic spine. Four views were obtained. AP, s jose a's and lateral views were obtained. COMPARISON: No exams were available for comparison FINDINGS: BONES: There is no fracture or destructive lesion. The vertebral bodies and posterior elements are un remarkable. DISKS:Alignment is within normal limits. Interverebral disc spaces are maintained. SOFT TISSUE: Visualized lungs are clear. IMPRESSION: 1. No acute fractures or subluxations are seen in the thoracic spine. 2. The preliminary V Rad report was reviewed. DATA REPOSITORY: RADIATION DOSE DELIVERED:
--- NOTE | 2025-03-10 22:45 | DI.RAD_ITS ---
Exam(s) XR RIBS RT W PA LAT CHEST EXAM: XR RIBS RT W PA LAT CHEST CLINICAL HISTORY: right lateral posterior rib pain after fall TECHNIQUE: 2D digital imaging was performed.Seven images were obtained. COMPARISON: CR,XR XR CHEST 2V PA LATERAL from 12/15/2024 CR,XR XR CHEST 2V PA LATERAL from 03/09/2025 FINDINGS: MEDIASTINUM: Normal. HEART: Normal. PULMONARY VASCULATURE: Normal. LUNGS: Clear. PLEURAL SPACE: No pleural effusion or pneumothorax. BONE:Normal. RIGHT RIBS: Normal. No displaced right rib fractures are seen. OTHER FINDINGS:Normal. IMPRESSION: 1. No acute pulmonary findings. 2. Unremarkable right ribs. 3. The preliminary V Rad report was reviewed. DATA REPOSITORY: RADIATION DOSE DELIVERED:
--- NOTE | 2025-03-10 22:51 | W.ED.GENAD ---
Discharge Plan Disposition Patient Disposition: Home Condition: Good Discharge Details Clinical Impression: Back contusion Primary Care Provider: Reema Del Cid ED Provider: Thiago Rouse Home Meds and New Rx's Prescriptions: New lidocaine [Lidoderm] 5 % adhesive patch,medicated 1 patch Topical Q24H Qty: 15 0RF No Action omeprazole 20 mg capsule,delayed release(DR/EC) 20 mg PO DAILY Qty: 90 3RF doxepin 10 mg capsule 10 mg PO DAILY aripiprazole [Abilify] 20 mg tablet 10 mg PO DAILY Patient Comments: forgets to take at times lamotrigine [Lamictal] 25 mg tablet 25 mg PO ONCE Discharge Instructions Instructions: Bruised Rib Additional Instructions: At this time your x-rays show no evidence of fractures for your spine or ribs. However you have bruised them from the fall. Please take Tylenol and Motrin for pain. Please use the Lidoderm patches to help with the pain. Please use a heating pad to help with the muscle spasm. If you notice any worsening of your symptoms, or any new symptoms such as vomiting, diarrhea, fever, chills, shortness of breath, chest pain, numbness, weakness, or fainting , please return immediately to the emergency department for reevaluation. Please follow up with your primary care provider as soon as possible for reassessment and reevaluation. As always, it was a pleasure participating in your medical care today. Referrals: Reema Del Cid MD [Primary Care Provider] - [facility] General Date/Time Provider Initiated Documentation: 03/10/25 22:49. [facility] Narrative: This is a 30-year-old male with a known past medical history of Ryioe-Wihjgamlu-Xfilf, psychiatric illness with depression and suicidality, depression, PTSD, reflux, who presents today for evaluation of back pain. He comes in via EMS walking slipped and fell onto his back on the steps. He hit his lower back. This happened a few hours ago and has been trying to bear the pain but the pain has been persistent. It is achy in nature, when he moves. Patient denies any saddle anesthesia, numbness or tingling in the groin, change in sensation when wiping. Patient denies any change in sensation during sexual intercourse, difficulty achieving or maintaining an erection or ejaculation, bowel or bladder incontinence, leakage, or retention. Patient denies any weakness in the lower extremities, atypical fall. No other complaints at this time. Pain goes from his mid back on the right down to the low back on the right. Mild right-sided rib pain, but no severe pain with breathing. No shortness of breath. He is not on blood thinners. No other complaints at this time. Related Data Home Medications ?Medication ?Instructions ?Recorded ?Confirmed aripiprazole 20 mg tablet (Abilify) 10 mg PO DAILY 10/30/23 03/10/25 doxepin 10 mg capsule 10 mg PO DAILY 12/15/24 03/10/25 omeprazole 20 mg capsule,delayed 20 mg PO DAILY #90 caps 02/27/25 03/10/25 release lamotrigine 25 mg tablet (Lamictal) 25 mg PO ONCE 03/10/25 03/10/25 lidocaine 5 % topical patch 1 patch topical Q24H #15 ea 03/11/25 (Lidoderm) Previous Rx's ?Medication ?Instructions ?Recorded omeprazole 20 mg capsule,delayed 20 mg PO DAILY #90 caps 02/27/25 release lidocaine 5 % topical patch 1 patch topical Q24H #15 ea 03/11/25 (Lidoderm) Allergies Allergy/AdvReac Type Severity Reaction Status Date / Time risperidone Allergy Mild tics Verified 03/10/25 22:50 General Stated Complaint: Fall/Non TraumaCriteria SOLANGE: 3 Exam Narrative Exam Narrative: 1.Const: Well-nourished, Well-developed, appearing stated age 2.Eyes: PERRL, no conjunctival injection, and symmetrical lids. 3.ENT: Atraumatic external nose and ears. Moist MM. Neck: Symmetric, trachea midline, No thyromegaly. 4.CVS: +S1/S2, Peripheral pulses 2+ and equal in all extremities. Brisk capillary refill in all extremities. 5.RESP: Unlabored respiratory effort. Clear to auscultation bilaterally. No wheezes rales or rhonchi. Mild tenderness over the right lateral posterior ribs. No deformity, paradoxical movements, subcutaneous crepitus or other abnormality. 6.GI: Soft, Nontender/Nondistended, No hepatosplenomegaly. No guarding or rebound. 7.MSK: Normocephalic/Atraumatic, Extremities w/o deformity or ttp No cyanosis or clubbing, Normal movement of all extremities No midline tenderness to palpation over the C spine. Mild minimal mid midline tenderness over the lower thoracic and upper lumbar vertebra, as well as more notable tenderness over the right paraspinal aspects in the same areas. Normal ROM in flexion, extension, side bend, and rotation. Patient has +5 out of 5 strength in the lower extremities in dorsiflexion and plantarflexion, knee flexion and extension, hip flexion and extension. Normal strength for dorsiflexion and plantar flexion of the great toe bilaterally. There is +2 over 2 dorsalis pedis pulses bilaterally. There is normal sensation to the skin with light touch at the foot, knee, and hip. Normal saddle sensation. Good sensation over the deep sural nerve area bilaterally. Rectal exam demonstrates good rectal tone with excellent arianna-rectal sensation. Reflexes are +2 over 4 in the patellar reflex bilaterally. +5 out of 5 strength in the medial, ulnar, radial nerve distribution bilaterally in the hands as well as intact light touch sensation to these dermatomes on the hands 8.Skin: Warm, Dry. No rashes or lesions. 9.Neuro: group therapy counselor II-XII grossly intact. Sensation grossly intact, no focal neurologic deficits. 10.Psych: (AAO) x3. Appropriate mood and affect Course Vital Signs Vital signs: Vital Signs Temperature 36.7 C 03/10/25 22:43 Pulse 96 H 03/10/25 22:43 Respiratory Rate 18 03/10/25 22:43 Blood Pressure 131/84 03/10/25 22:43 Pulse Oximetry 97 03/10/25 22:43 Temperature 36.7 C 03/10/25 22:43 Temperature Source Oral 03/10/25 22:43 Pulse 96 H 03/10/25 22:43 Respiratory Rate 18 03/10/25 22:43 Blood Pressure 131/84 03/10/25 22:43 Pulse Oximetry 97 03/10/25 22:43 Pain Level 10 03/10/25 22:43 Medical Decision Making This is a 30-year-old male with a known past medical history of Baate-Ssxaqodxd-Yrdeu, psychiatric illness with depression and suicidality, depression, PTSD, reflux, who presents today for evaluation of back pain. He comes in via EMS walking slipped and fell onto his back on the steps. He hit his lower back. This happened a few hours ago and has been trying to bear the pain but the pain has been persistent. It is achy in nature, when he moves. Patient denies any saddle anesthesia, numbness or tingling in the groin, change in sensation when wiping. Patient denies any change in sensation during sexual intercourse, difficulty achieving or maintaining an erection or ejaculation, bowel or bladder incontinence, leakage, or retention. Patient denies any weakness in the lower extremities, atypical fall. No other complaints at this time. Pain goes from his mid back on the right down to the low back on the right. Mild right-sided rib pain, but no severe pain with breathing. No shortness of breath. He is not on blood thinners. No other complaints at this time. Exam demonstrates a well-appearing male, mild midline tenderness in the lower thoracic and upper lumbar vertebra. Mild right-sided paraspinal tenderness. Mild right-sided posterior rib pain. Suspect contusion, less likely as rib fracture. No evidence to suggest pneumothorax with no significant pleuritic chest pain or shortness of breath, no neurologic deficits to suggest significant neurovascular injury. He has normal strength normal sensation distally to the injury point. Will get x-rays to evaluate for contusion versus fracture. We will give Lidoderm patches and NSAID therapy. Will monitor closely and reassess. 12:57 AM X-rays have returned negative for acute process. No fractures pneumothorax or other abnormality. Urine shows no blood or hematuria. Patient feels much better after NSAID and Lidoderm patch therapy. Diagnosis is rib and spinous process contusion. Will recommend continued NSAID therapy and Lidoderm patches at home as well as heating pad. Discussed red flags for which to return. I have extensively reviewed the treatment plan and discharge instructions with the patient. I have addressed all patient concerns at this time. The patient was made aware of what symptoms to monitor for that would warrant a return to the emergency department. Discussed the plan with the patient, they demonstrate verbal understanding and agreement with our assessment and plan at this time. The documentation in this chart was dictated using [employer] dictation software. Please excuse any dictation errors. FINDINGS: Bones/joints: Thoracic vertebral bodies normal in height and alignment. No focal bone lesions. No fracture. Posterior right ribs are unremarkable as visualized. Soft tissues: Paravertebral soft tissues are unremarkable. IMPRESSION: 1. No thoracic spine fracture or malalignment. 2. No visible posterior right rib fracture. Limited evaluation of ribs. 3. Paravertebral soft tissues are unremarkable. Thank you for allowing us to participate in the care of your patient. Dictated and Authenticated by: Yoshi Horowitz MD 03/11/2025 12:43 AM Eastern Time ([place] & [place]) FINDINGS: Bones/joints: No fracture of the lumbar spine. No malalignment or dislocation. No significant disc space degenerative narrowing. Facet joints are unremarkable. Soft tissues: Paravertebral soft tissues are unremarkable. IMPRESSION: 1. No acute findings. 2. Intact lumbar spine. No traumatic disruption. Thank you for allowing us to participate in the care of your patient. Dictated and Authenticated by: Yoshi Horowitz MD 03/11/2025 12:51 AM Eastern Time ([place] & [place]) FINDINGS: Bones/joints: Right ribs are unremarkable in multiple views. No fracture. No lytic or blastic bone lesions. Soft tissues: Normal. IMPRESSION: No rib fracture or focal rib lesion. FINDINGS: Lungs: Lungs are clear bilaterally. No consolidation. Pleural spaces: No pleural effusion. No pneumothorax. Heart/Mediastinum: Normal heart size. No mediastinal widening. Bones/joints: Skeletal structures are unremarkable. IMPRESSION: 1. Clear lungs and pleural space bilaterally. 2. Normal cardiac and mediastinal contour. Thank you for allowing us to participate in the care of your patient. 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 Father Depression PTSD (post-traumatic stress disorder) Brother Diabetes Type 1 Seizure Maternal Grandmother Dementia Social History (Updated 01/30/25 @ 10:17 by Reema Del Cid MD) Smoking/Tobacco Use Status: Former Tobacco Use Quit Date: 10/23/23 Tobacco: How many years used: 10 Smoking risk assessment performed?: Yes Alcohol Intake: current Alcohol Intake frequency: 3 or more drinks per day Alcohol type: hard liquor Drug use: Daily Substance use type: marijuana Details: Pt states he is no longer using marijuana 11/30/24 Household members: family Housing: house What is your relationship status?: never Panel score (0-1 are the most socially isolated patients): 0 Do you feel safe at home: Yes (homeless) Do you feel safe in your relationship?: Yes
[2025-03-10] MEDS: Ibuprofen 800 MG TAB PO (23:11)
[2025-03-10] MEDS: Acetaminophen 500 MG TAB 1000 MG PO (23:11)
[2025-03-10] MEDS: Lidocaine 5% Patch 2 PATCH TP (23:13)
[2025-03-11 00:35] LABS: Bilirubin Negative (Negative); Blood Negative (Negative); Clarity Clear (Clear); Glucose Negative (Negative); Ketones Negative (Negative); Leukocyte Esterase Negative (Negative); Nitrite Negative (Negative); Specific Gravity >= 1.030 (1.005-1.025); Urobilinogen 0.2 mg/dL (Up to 0.2)
--- NOTE | 2025-03-11 00:44 | DI.VRAD_ITS ---
PROCEDURE INFORMATION: Exam: XR Thoracic Spine Exam date and time: 03/10/2025 11:35 PM Age: 30 years old Clinical indication: Injury or trauma; Other: Fall, hit back, pain at t6-l3 on right TECHNIQUE: Imaging protocol: Radiologic exam of the thoracic spine. Views: 3 views. COMPARISON: CR XR RIBS RT W PA LAT CHEST 03/10/2025 11:23 PM FINDINGS: Bones/joints: Thoracic vertebral bodies normal in height and alignment. No focal bone lesions. No fracture. Posterior right ribs are unremarkable as visualized. Soft tissues: Paravertebral soft tissues are unremarkable. IMPRESSION: 1. No thoracic spine fracture or malalignment. 2. No visible posterior right rib fracture. Limited evaluation of ribs. 3. Paravertebral soft tissues are unremarkable. Dictated and Authenticated by: Yoshi Horowitz MD. Orderin aNsim Das MD
--- NOTE | 2025-03-11 00:46 | DI.VRAD_ITS ---
PROCEDURE INFORMATION: Exam: XR Right Ribs Exam date and time: 03/10/2025 11:23 PM Age: 30 years old Clinical indication: Right-sided; Other: R rib pain TECHNIQUE: Imaging protocol: Radiologic exam of the right ribs. Views: 2 views. COMPARISON: CR XR CHEST 2V PA LATERAL 03/09/2025 8:20 PM FINDINGS: Bones/joints: Right ribs are unremarkable in multiple views. No fracture. No lytic or blastic bone lesions. Soft tissues: Normal. IMPRESSION: No rib fracture or focal rib lesion. PROCEDURE INFORMATION: Exam: XR Chest Exam date and time: 03/10/2025 11:23 PM Age: 30 years old Clinical indication: Right-sided; Other: R rib pain TECHNIQUE: Imaging protocol: Radiologic exam of the chest. Views: 2 views. COMPARISON: CR XR CHEST 2V PA LATERAL 03/09/2025 8:20 PM FINDINGS: Lungs: Lungs are clear bilaterally. No consolidation. Pleural spaces: No pleural effusion. No pneumothorax. Heart/Mediastinum: Normal heart size. No mediastinal widening. Bones/joints: Skeletal structures are unremarkable. IMPRESSION: 1. Clear lungs and pleural space bilaterally. 2. Normal cardiac and mediastinal contour. Dictated and Authenticated by: Yoshi Horowitz MD. Orderin Nasim Das MD
--- NOTE | 2025-03-11 00:51 | DI.VRAD_ITS ---
PROCEDURE INFORMATION: Exam: XR Lumbosacral Spine Exam date and time: 03/10/2025 11:40 PM Age: 30 years old Clinical indication: Other: Back pain after fall; Fall, hit back, pain at t6-l3 on right TECHNIQUE: Imaging protocol: Radiologic exam of the lumbosacral spine. Views: 4 or 5 views. COMPARISON: CR XR THORACIC SPINE COMPLETE 03/10/2025 11:35 PM FINDINGS: Bones/joints: No fracture of the lumbar spine. No malalignment or dislocation. No significant disc space degenerative narrowing. Facet joints are unremarkable. Soft tissues: Paravertebral soft tissues are unremarkable. IMPRESSION: 1. No acute findings. 2. Intact lumbar spine. No traumatic disruption. Dictated and Authenticated by: Yoshi Horowitz MD. Orderin Nasim Das MD
[2025-03-11 00:59] VITALS: BP 119/73; PULSE 71; RESP 18; O2SAT 97
== END 2025-03-11 01:00 | disposition home or self-care (01) ==
PROVIDERS: Emergency Provider Student in an Organized Health Care Education/Training Program; PCP Family Medicine
DX: W10.8XXA Fall (on) (from) other stairs and steps, initial encounter; S20.224A Contusion of middle back wall of thorax, initial encounter
CPT/HCPCS: 99283; 71046; 71100; 72072; 72110; 81003

== ENCOUNTER 2025-03-13 20:49 | Emergency (ER) | payer MEDICAID, SELFPAY ==
[2025-03-13 20:54] VITALS: BP 145/91; PULSE 84; TEMP 36.7; O2SAT 97
--- NOTE | 2025-03-13 21:13 | W.ED.GENAD ---
Discharge Plan Disposition Condition: Stable Discharge Details Chief Complaint: PsychEval Clinical Impression: Bipolar 1 disorder, Suicidal ideation Primary Care Provider: Reema Del Cid ED Provider: Marilee Crum Home Meds and New Rx's Prescriptions: No Action omeprazole 20 mg capsule,delayed release(DR/EC) 20 mg PO DAILY Qty: 90 3RF aripiprazole [Abilify] 20 mg tablet 10 mg PO DAILY Patient Comments: forgets to take at times lamotrigine [Lamictal] 25 mg tablet 25 mg PO ONCE lidocaine [Lidoderm] 5 % adhesive patch,medicated 1 patch Topical Q24H Qty: 15 0RF HPI General Date/Time Provider Initiated Documentation: 03/13/25 20:54. HPI Narrative: 30-year-old with history of autism, bipolar, depression presents for evaluation of suicidal ideation. Patient states they have been feeling suicidal all day. He had a plan to jump in front of traffic. They have been taking all of their medications as prescribed. Denies any current medical concerns or illnesses. Related Data Home Medications ?Medication ?Instructions ?Recorded ?Confirmed aripiprazole 20 mg tablet (Abilify) 10 mg PO DAILY 10/30/23 03/13/25 omeprazole 20 mg capsule,delayed 20 mg PO DAILY #90 caps 02/27/25 03/13/25 release lamotrigine 25 mg tablet (Lamictal) 25 mg PO ONCE 03/10/25 03/13/25 lidocaine 5 % topical patch 1 patch topical Q24H #15 ea 03/11/25 03/13/25 (Lidoderm) Previous Rx's ?Medication ?Instructions ?Recorded omeprazole 20 mg capsule,delayed 20 mg PO DAILY #90 caps 02/27/25 release lidocaine 5 % topical patch 1 patch topical Q24H #15 ea 03/11/25 (Lidoderm) Allergies Allergy/AdvReac Type Severity Reaction Status Date / Time risperidone Allergy Mild tics Verified 03/13/25 20:55 General Stated Complaint: PsychEval SOLANGE: 2 Review of Systems Narrative: Remainder of review of systems otherwise negative except for as noted in the HPI x 10. Exam Narrative Exam Narrative: General: non-toxic, no respiratory distress, comfortable HEENT: normocephalic, atraumatic, lids and lashes normal, PERRL, EOMI, anicteric sclera, no conjunctival injection, moist oral mucosa Card: regular rate and rhythm, S1S2, no murmurs, rubs, or gallops Lungs: good air entry, clear to auscultation bilaterally. no wheezes, rales, rhonchi, or retractions Abd: soft, non-tender, non-distended, normal bowel sounds, no rebound or guarding, no peritoneal signs Musculoskeletal: full range of motion of arms and legs, no tenderness to palpation. no clubbing, cyanosis, or edema Neurologic: appropriate for age, strength normal Psych: alert and oriented, + suicidal ideation Skin: no petechiae, no lesions, warm and dry Course Vital Signs Vital signs: Vital Signs Temperature 36.7 C 03/13/25 20:54 Pulse 84 03/13/25 20:54 Blood Pressure 145/91 H 03/13/25 20:54 Pulse Oximetry 97 03/13/25 20:54 Temperature 36.7 C 03/13/25 20:54 Temperature Source Oral 03/13/25 20:54 Pulse 84 03/13/25 20:54 Blood Pressure 145/91 H 03/13/25 20:54 Pulse Oximetry 97 03/13/25 20:54 Oxygen Delivery Method Room Air 03/13/25 20:54 Oxygen Flow Rate 0 03/13/25 20:54 Medical Decision Making 30-year-old with history of major depression, autism, bipolar presents for evaluation of suicidal ideation. Laboratory studies are unremarkable. Medical cleared for mental evaluation. Patient evaluated by mental health and will be voluntary for psychiatric admission. Home medications were ordered. 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 Father Depression PTSD (post-traumatic stress disorder) Brother Diabetes Type 1 Seizure Maternal Grandmother Dementia Social History Smoking/Tobacco Use Status: Former Tobacco Use Quit Date: 10/23/23 Tobacco: How many years used: 10 Smoking risk assessment performed?: Yes Alcohol Intake: current Alcohol Intake frequency: 3 or more drinks per day Alcohol type: hard liquor Drug use: Daily Substance use type: marijuana Details: Pt states he is no longer using marijuana 11/30/24 Household members: family Housing: house What is your relationship status?: never Panel score (0-1 are the most socially isolated patients): 0 Do you feel safe at home: Yes (homeless) Do you feel safe in your relationship?: Yes
[2025-03-13 21:14] LABS: Bilirubin Negative (Negative); Blood Negative (Negative); Clarity Clear (Clear); Glucose Negative (Negative); Ketones Negative (Negative); Leukocyte Esterase Negative (Negative); Nitrite Negative (Negative); Specific Gravity 1.025 (1.005-1.025); Urobilinogen 0.2 mg/dL (Up to 0.2)
[2025-03-13 21:33] LABS: Abs Immature Grans 0.02 10^3/uL (0.0-0.06); Absolute Basophil Count 0.05 10^3/uL (0.0-0.2); Absolute Lymphocyte Count 2.96 10^3/uL (1.2-3.4); Absolute Monocyte Count 0.53 10^3/uL (0.1-0.8); Absolute Neutrophil Count 3.12 10^3/uL (1.2-6.7); Basophils % 0.7 %; Eosinophils % 2.9 %; HCT 43.7 % (40.0-50.0); HGB 14.8 g/dL (13.5-17.5); Immature Grans % 0.3 %; MCH 30.3 pg (27.0-33.0); MCHC 33.9 % (32.0-36.0); MCV 89 fL (80-95); MPV 11.7 fL (8.0-11.0); Monocytes % 7.7 %; Neutrophils % 45.4 %; Platelet Count 203 10^3/uL (130-400); RBC 4.89 10^6/uL (4.36-5.78); RDW 11.9 % (11.8-14.1); RDW-SD 39.2 fL; WBC 6.88 10^3/uL (4.4-10.8)
[2025-03-13 21:34] LABS: *AMPHETAMINES SCREEN URINE Negative (Negative); *BARBITURATES SCREEN URINE Negative (Negative); *BENZODIAZEPINES SCREEN URINE Negative (Negative); Cannabinoids THC Negative (Negative); Cocaine Screen,Urine Negative (Negative); METHADONE URINE SCREEN Negative (Negative); OPIATES URINE SCREEN Negative (Negative)
[2025-03-13 21:36] LABS: Tricyclic Antidepressants Negative (Negative)
[2025-03-13 21:46] LABS: Anion Gap 10.8 mmol/L (3-11); BUN 11 mg/dL (7-18); CO2 26.2 mmol/L (21.0-32.0); CREATININE 0.9 mg/dL (0.70-1.30); Calcium 9.1 mg/dL (8.5-10.1); Chloride 105 mmol/L (98-107); Estimated GFR 119.31 (mL/min/1.73m2); Glucose 98 mg/dL (74-106); Potassium 3.9 mmol/L (3.5-5.1); Sodium 142 mmol/L (136-145)
[2025-03-13 21:47] LABS: ETHANOL BLOOD < 3.0 mg/dL (<10)
--- NOTE | 2025-03-13 22:59 | W.EDPROG ---
Date of service: 03/13/25 Time of Service: 22:59 Medical Decision Making This patient was signed out to me. Please see previous notes for H&P and initial eval. In brief, 30yo M with bipolar, autism, WPW, presenting with SI, plan to jump into traffic. Medically cleared, pending voluntary inpatient placement. Overnight no acute events. Did not wake patient for assessment. Will be signed out to oncoming physician, plan remains as above. Quality:SDOH Health Related Social Needs: Health related social needs problems related to housing/economic circumstances (Z59.89), problems with daily activities (Z73.9) Health related social needs details resident of [facility] beds Discharge Plan Disposition Condition: Stable Discharge Details Chief Complaint: PsychEval Clinical Impression: Bipolar 1 disorder, Suicidal ideation Primary Care Provider: Reema Del Cid ED Provider: Marilee Crum Home Meds and New Rx's Prescriptions: No Action omeprazole 20 mg capsule,delayed release(DR/EC) 20 mg PO DAILY Qty: 90 3RF aripiprazole [Abilify] 20 mg tablet 10 mg PO DAILY Patient Comments: forgets to take at times lamotrigine [Lamictal] 25 mg tablet 25 mg PO ONCE lidocaine [Lidoderm] 5 % adhesive patch,medicated 1 patch Topical Q24H Qty: 15 0RF
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
[2025-03-14 08:14] VITALS: BP 121/75; PULSE 77; RESP 18; TEMP 35.7; O2SAT 100
[2025-03-14] MEDS: lamoTRIgine 25 MG TAB PO (08:18)
[2025-03-14] MEDS: ARIPiprazole 5 MG TAB 10 MG PO (08:18)
[2025-03-14] MEDS: Omeprazole 20 MG CAPCR PO (08:18)
--- NOTE | 2025-03-14 11:27 | ED.PROG_ITS ---
Date of service: 03/14/25 Time of Service: 11:27 Medical Decision Making Care assumed from off going provider. Patient was suicidal. Had some plans to jump into traffic. Apparently he reports that he had a of a close friend that precipitated this. He has been evaluated by mental services and at this t gabe is stable for discharge home as he no longer wishes to pursue voluntary placement and he does not feel suicidal anymore. Quality:SDOH Health Related Social Needs: Health related social needs problems related to housin g/economic circumstances (Z59.89), problems with daily activities (Z73.9) Health related social needs details resident of [facility] b eds Discharge Plan Disposition Patient Disposition: Home Condition: Stable Discharge Details Clinical Impression: Bipolar 1 disorder, Suicidal ideation Primary Care Provider: Reema Del Cid ED Provider: Gisselle Johnson Home Meds and New Rx's Prescriptions: No Action omeprazole 20 mg capsule,delayed release(DR/EC) 20 mg PO DAILY Qty: 90 3RF aripiprazole [Abilify] 20 mg tablet 10 mg PO DAILY Patient Comments: forgets to take at times lamotrigine [Lamictal] 25 mg tablet 25 mg PO ONCE lidocaine [Lidoderm] 5 % adhesive patch,medicated 1 patch Topical Q24H Qty: 15 0RF Discharge Instructions Additional Instructions: You have decided that you would like to go home. You have been I know health services and at this time that is a safe plan.
--- NOTE | 2025-03-14 15:49 | CMPROGNOTE_ITS ---
Date of service: 03/14/25 Time of Service: 15:49 Care Management Progress Note Progress Note Text Progress Note Text: Ketan was admitted on 03/14/25 with SI and was seeking voluntary inpatient treatment. He remained overnight and felt much better this morning. He was screened by [facility] crisis screener and was safety planned home as he no longer felt suicidal and was not interested in inpatient treatment any longer. He was discharged to the [facility]. Social Determinants of Health Screening Will the Patient Participate in the Screening?: Declined to provide
--- NOTE | 2025-03-14 17:04 | PDOC.MHCN ---
Date of service: 03/14/25 Time of Service: 11:00 PHQ-9 Over the last 2 weeks, how often have you been bothered by any of the following problems? 1. Little interest or pleasure in doing things: not at all 2. Feeling down, depressed, or hopeless: several days 3. Trouble falling or staying asleep, or sleeping too much: not at all 4. Feeling tired or having little energy: not at all 5. Poor appetite or overeating: not at all 6. Feeling bad about yourself - or that you are a failure or have let yourself and your family down: several days 7. Trouble concentrating on things, such as reading the newspaper or watching television: not at all 8. Moving or speaking so slowly that other people could have noticed? - Or the opposite - being so fidgety or restless that you have been moving around a lot more than usual: not at all 9. Thoughts that you would be better off or of hurting yourself in some way: not at all Total score: 2 Source: Developed by Drs. Odin Richter, Katiana Neri, Ab Sarah and colleagues, with an educational christine from [employer]. Suicide Severity Rate CSSRS Have you wished you were or wished you could go to sleep and not wake up?: No Have you actually had any thoughts of killing yourself?: No CSSRS2 Have you been thinking about how you might do this?: No Have you had these thoughts and had some intention of acting on them?: No Have you started to work out or worked out the details of how to kill yourself? Do you intend to carry out this plan?: No CSSRS3 Have you ever done anything, started to do anything or prepared to do anything to end your life?: Yes CSSRS4 Was this within the past three months?: No Screening Score Total Score: 2 Screening: Positive Mental Health Emergency Note Release [facility] release signed:: Yes Reason for Visit Client came via ambulance to [facility] due to having chest pain and shortness of breath which triggered his anxiety In the last 2 weeks has the pt presented for ES prior to today?: No Client Information Client is: IDDS Well Housed: No,status: Not homeless, Unstable housing Non Suicidal Self Injury Current: No History: No Safety Risk/Harm to Self or Others Current Ideation to Harm Self or Others: No Risk: Does risk to harm exist?: yes. Access to means: No. Risk: Low Risk Duty to warn indicated: No Asssessment/Mental Status Appearance: Other (hospital scrubs) Attitude: Cooperative and Guarded Behavior: Unremarkable, Poor impulse control and Agitated Speech: Normal Affect: Cogruent with mood Mood: Sad and Anxious Thought process: Unremarkable Hallucinations: No Delusions: No Attention: Unremarkable Perception: Not impaired Orientation: Fully orientated Memory: Intact Insight: Fair Judgement: Poor Neurovegetative Symptoms Sleep: No change Appetitie: No change Interests: No change Energy: No change Libido: No change Substance Use: Other (none) Drug Issues: Other (none) Do you use nicotine?: Yes Have you used substances in the last 7 days?: No Additional Issues: Assaultive/Threatening Behavior: No Medical Concerns: No Client engaged in active self harm w/weapon: No Threatening to run away: No Child reported abuse/neglect: No Voluntarily presenting for services: Yes Domestic violence is a concern: No Extreme Psychosis or extreme behavior is present: No Impression Client became upset when he learned of his friend passing away. It overwhelmed his mindset and mental health. He started to have shortness of breath and chest pain and called for an ambulance Resources [facility] reviewed and given:: 988, Crisis Bed, [facility] and Other (front porch) Plan/Disposition Recommended Disposition: Other (safety planned ). Plan: Client will be discharged from [facility] with a Safety Plan back to his motel room in [facility] Person reported agreement to plan: Yes Reports/communication Outcome discussed with: ED/Personnel
== END 2025-03-14 11:46 | disposition home or self-care (01) ==
PROVIDERS: Emergency Medicine Emergency Medical Services; Emergency Provider Emergency Medicine; PCP Family Medicine
DX: R45.851 Suicidal ideations (principal); F31.9 Bipolar disorder, unspecified; F84.0 Autistic disorder; F32.A Depression, unspecified; Z87.891 Personal history of nicotine dependence
CPT/HCPCS: 00123; 80048; 80307; 96127; 99284; 80320; 81003; 85025

== ENCOUNTER 2025-03-14 17:47 | Emergency (ER) | payer MEDICAID, SELFPAY ==
[2025-03-14 17:47] VITALS: BP 138/96; PULSE 110; RESP 16; TEMP 36.7; O2SAT 98
--- NOTE | 2025-03-14 18:15 | DI.RAD_ITS ---
Exam(s) XR SACRUM COCCYX EXAM: XR SACRUM COCCYX CLINICAL HISTORY: fall, pain. TECHNIQUE: 2D digital imaging was performed. COMPARISON: No exams were available for comparison FINDINGS: 3 views There is no evidence of sacral fracture nor presacral soft tissue swelling. Sacroiliac joints appear unremarkable. Bone density normal. No osseous lesions. No radiopaque foreign bodies. IMPRESSION: No significant radiographic findings in the sacrum and sacroiliac joints. DATA REPOSITORY: RADIATION DOSE DELIVERED:
[2025-03-14 18:17] LABS: Bilirubin Negative (Negative); Blood Negative (Negative); Clarity Clear (Clear); Glucose Negative (Negative); Ketones Negative (Negative); Leukocyte Esterase Negative (Negative); Nitrite Negative (Negative); Specific Gravity 1.025 (1.005-1.025); Urobilinogen 0.2 mg/dL (Up to 0.2); pH 5.5 (5-8)
--- NOTE | 2025-03-14 18:23 | DI.RAD_ITS ---
Exam(s) XR LUMBAR SPINE COMPLETE EXAM: XR LUMBAR SPINE COMPLETE CLINICAL HISTORY: fall, pain. TECHNIQUE: 2D digital imaging was performed. COMPARISON: CR,XR XR LUMBAR SPINE COMPLETE from 03/10/2025 FINDINGS: Five views No evidence of fracture, listhesis, nor pars interarticularis defects. No scoliosis. Disc spaces exhibit normal height with the exception of mild narrowing of L5-S1. Facet joints all ap pear unremarkable. Sacroiliac joints appear unremarkable. Bone density is normal. No osseous lesio ns. IMPRESSION: No significant acute osseous findings. No fractures. Mild disc space narrowing at L5-S1 level noted . DATA REPOSITORY: RADIATION DOSE DELIVERED:
[2025-03-14 18:30] LABS: *AMPHETAMINES SCREEN URINE Negative (Negative); *BARBITURATES SCREEN URINE Negative (Negative); *BENZODIAZEPINES SCREEN URINE Negative (Negative); Cannabinoids THC Negative (Negative); Cocaine Screen,Urine Negative (Negative); METHADONE URINE SCREEN Negative (Negative); OPIATES URINE SCREEN Negative (Negative)
[2025-03-14 18:31] LABS: Tricyclic Antidepressants Negative (Negative)
--- NOTE | 2025-03-14 18:39 | ED.GENADUL_ITS ---
Discharge Plan Discharge Details Chief Complaint: PsychEval Clinical Impression: Bipolar 1 disorder, Suicidal ideation, Autism, Back pain Primary Care Provider: Reema Del Cid ED Provider: Ana Marks Home Meds and New Rx's Prescriptions: No Action omeprazole 20 mg capsule,delayed release(DR/EC) 20 mg PO DAILY Qty: 90 3RF aripiprazole [Abilify] 20 mg tablet 10 mg PO DAILY Patient Comments: forgets to take at times lamotrigine [Lamictal] 25 mg tablet 25 mg PO ONCE lidocaine [Lidoderm] 5 % adhesive patch,medicated 1 patch Topical Q24H Qty: 15 0RF HPI General Date/Time Provider Initiated Documentation: 03/14/25 17:56 . HPI Narrative: 30-year-old patient with history of autism, bipolar, depression presents for ongoing suicidal ideation. Patient was seen by myself yesterday and discharged this morning. They state that they really need help for their suicidal thoughts. It is interfering with their life. They also state that they did fall down the stairs earlier this evening. They landed on their butt and went down several stairs. They now have increased pain to the lower back and tailbone. No numbness or tingling to the extremities. No loss of bowel or bladder function. No saddle anesthesia. Did not hit her head or pass out. Related Data Home Medications ?Medication ?Instructions ?Recorded ?Confirmed aripiprazole 20 mg tablet (Abilify) 10 mg PO DAILY 10/30/23 03/14/25 omeprazole 20 mg capsule,delayed 20 mg PO DAILY #90 caps 02/27/25 03/14/25 release lamotrigine 25 mg tablet (Lamictal) 25 mg PO ONCE 03/10/25 03/14/25 lidocaine 5 % topical patch 1 patch topical Q24H #15 ea 03/11/25 03/14/25 (Lidoderm) Previous Rx's ?Medication ?Instructions ?Recorded omeprazole 20 mg capsule,delayed 20 mg PO DAILY #90 caps 02/27/25 release lidocaine 5 % topical patch 1 patch topical Q24H #15 ea 03/11/25 (Lidoderm) Allergies Allergy/AdvReac Type Severity Reaction Status Date / Time risperidone Allergy Mild tics Verified 03/14/25 17:54 General Stated Complaint: PsychEval SOLANGE: 2 Review of Systems Narrative: Remainder of review of systems otherwise negative except for as noted in the HPI x 10. Exam Narrative Exam Narrative: General: non-toxic, no respiratory distress, comfortable HEENT: normocephalic, atraumatic, lids and lashes normal, PERRL, EOMI, anicteric sclera, no conjunctival injection, moist oral mucosa Card: regular rate and rhythm, S1S2, no murmurs, rubs, or gallops Lungs: good air entry, clear to auscultation bilaterally. no wheezes, rales, rhonchi, or retractions Abd: soft, non-tender, non-distended, normal bowel sounds, no rebound or guarding, no peritoneal signs Musculoskeletal: full range of motion of arms and legs, no tenderness to palpation. no clubbing, cyanosis, or edema Back exam: + paraspinal tenderness, no mid-line tenderness, normal strength & sensation, negative SLR's, DTR's 2+ bilaterally Neurologic: appropriate for age, strength normal Psych: alert and oriented Skin: no petechiae, no lesions, warm and dry Course Vital Signs Vital signs: Vital Signs Temperature 36.7 C 03/14/25 17:47 Pulse 110 H 03/14/25 17:47 Respiratory Rate 16 03/14/25 17:47 Blood Pressure 138/96 H 03/14/25 17:47 Pulse Oximetry 98 03/14/25 17:47 Temperature 36.7 C 03/14/25 17:47 Temperature Source Oral 03/14/25 17:47 Pulse 110 H 03/14/25 17:47 Respiratory Rate 16 03/14/25 17:47 Blood Pressure 138/96 H 03/14/25 17:47 Pulse Oximetry 98 03/14/25 17:47 Oxygen Delivery Method Room Air 03/14/25 17:47 Oxygen Flow Rate 0 03/14/25 17:47 Pain Level 10 03/14/25 17:47 Lab/Test Results Lab/Test Results: Laboratory Tests Range/Units 03/14/25 18:08 Urine Color (Yellow) Yellow Urine Clarity (Clear) Clear Urine pH (5-8) 5.5 Ur Specific Mead (1.005-1.025) 1.025 Urine Protein (Neg-Trace) mg/dL Negative Urine Ketones (Negative) mg/dL Negative Urine Blood (Negative) Negative Urine Nitrite (Negative) Negative Urine Bilirubin (Negative) Negative Urine Urobilinogen (Up to 0.2) mg/dL 0.2 Ur Leukocyte Esterase (Negative) Negative Urine Glucose (Negative) mg/dL Negative Urine Opiates Screen (Negative) Negative Urine Methadone Screen (Negative) Negative Ur Barbiturates Screen (Negative) Negative Ur Tricyclics Screen (Negative) Negative Ur Amphetamines Screen (Negative) Negative U Benzodiazepines Scrn (Negative) Negative Urine Cocaine Screen (Negative) Negative Ur THC Screen (Negative) Negative Medical Decision Making 30-year-old patient with history of autism, bipolar, depression presents for ongoing suicidal ideation. They now have increased pain to the lower back after falling downstairs tonight. Patient has no saddle anesthesia, no loss of bowel or bladder control. Patient's history and physical exam are consistent with musculoskeletal back pain. There are no red flags for cauda equina syndrome or infection. No radicular symptoms. X-ray negative for fracture. Patient medically cleared for mental health evaluation. Patient was evaluated by mental health will be voluntary for psychiatric admission. 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 Father Depression PTSD (post-traumatic stress disorder) Brother Diabetes Type 1 Seizure Maternal Grandmother Dementia Social History Smoking/Tobacco Use Status: Former Tobacco Use Quit Date: 10/23/23 Tobacco: How many years used: 10 Smoking risk assessment performed?: Yes Alcohol Intake: current Alcohol Intake frequency: 3 or more drinks per day Alcohol type: hard liquor Drug use: Daily Substance use type: marijuana Details: Pt states he is no longer using marijuana 11/30/24 Household members: family Housing: house What is your relationship status?: never Panel score (0-1 are the most socially isolated patients): 0 Do you feel safe at home: Yes (homeless) Do you feel safe in your relationship?: Yes
[2025-03-14] MEDS: Acetaminophen 500 MG TAB 1000 MG PO (18:53)
[2025-03-14] MEDS: Lidocaine 5% Patch 1 PATCH TP (19:11)
[2025-03-14] MEDS: lamoTRIgine 25 MG TAB PO (21:00)
--- NOTE | 2025-03-14 22:30 | ED.PROG_ITS ---
Date of service: 03/14/25 Time of Service: 22:30 Medical Decision Making This patient was signed out to me. Please see previous notes for H&P and initial eval. In brief, 30yo M with bipolar, autism, WPW, discharged from [facility] earlier today now re-presenting with worsening SI and back pain. Medically cleared. [facility] recommended inpatient treatment; patient agreeable. Pending voluntary inpatient placement. Overnight no acute events. On chart review noted HR mildly elevated on vital signs on arrival; will repeat when awake. Will be signed out to oncoming physician, plan remains as above. Quality:SDOH Health Related Social Needs: Health related social needs problems related to housin g/economic circumstances (Z59.89), problems with daily activities (Z73.9) Health related social needs details resident of [facility] eds Discharge Plan Discharge Details Chief Complaint: PsychEval Clinical Impression: Bipolar 1 disorder, Suicidal ideation, Autism, Back pain Primary Care Provider: Reema Del Cid ED Provider: Marilee Crum Home Meds and New Rx's Prescriptions: No Action omeprazole 20 mg capsule,delayed release(DR/EC) 20 mg PO DAILY Qty: 90 3RF aripiprazole [Abilify] 20 mg tablet 10 mg PO DAILY Patient Comments: forgets to take at times lamotrigine [Lamictal] 25 mg tablet 25 mg PO ONCE lidocaine [Lidoderm] 5 % adhesive patch,medicated 1 patch Topical Q24H Qty: 15 0RF
--- NOTE | 2025-03-15 00:11 | PDOC.MHCN ---
Date of service: 03/14/25 Time of Service: 00:13 Suicide Severity Rate CSSRS Have you wished you were or wished you could go to sleep and not wake up?: Yes Have you actually had any thoughts of killing yourself?: Yes CSSRS2 Have you been thinking about how you might do this?: Yes Have you had these thoughts and had some intention of acting on them?: Yes Have you started to work out or worked out the details of how to kill yourself? Do you intend to carry out this plan?: Yes CSSRS3 Have you ever done anything, started to do anything or prepared to do anything to end your life?: Yes CSSRS4 Was this within the past three months?: Yes Screening Score Total Score: 8 Screening: Positive Mental Health Emergency Note Release [facility] release signed:: Yes Reason for Visit Client is known to the agency and this Clinician through frequent emergency interactions. Client is currently receiving support services and case management from [facility]. Client presents at [facility] with suicidal thoughts and actions, including declarations of dangerous behaviors and inability to maintain safety. In the last 2 weeks has the pt presented for ES prior to today?: Yes, presented at ED at another facility Client Information Well Housed: No,status: Homeless Unstable housing Safety Risk/Harm to Self or Others Current Ideation to Harm Self or Others: Yes to self. Intent: yes, has intent. Plan: yes,has a plan. Risk: Does risk to harm exist?: yes. Access to means: Yes. Details: Moving vehicle is the client's access to means as that is the client's plan to end their life by suicide. . Risk: High Risk Duty to warn indicated: No Asssessment/Mental Status Appearance: Disheveled and Poor hygiene Attitude: Cooperative and Friendly Behavior: Hyperactivity, Poor impulse control and Repetitive movements Speech: Normal Affect: Labile and Cogruent with mood Mood: Stressed and Anxious Thought process: Circumstational Hallucinations: No evidence Delusions: No evidence Attention: Unremarkable Perception: Not impaired Orientation: Fully orientated Memory: Intact Insight: Poor Judgement: Poor Neurovegetative Symptoms Sleep: No change Appetitie: No change Interests: No change Energy: No change Libido: Not applicable Additional Issues: Assaultive/Threatening Behavior: No Medical Concerns: No Client engaged in active self harm w/weapon: No Threatening to run away: No Child reported abuse/neglect: No Voluntarily presenting for services: No Domestic violence is a concern: No Extreme Psychosis or extreme behavior is present: No Impression Client is a 30yr old male, single, unemployed, temporarily housed in [place], [place]. Client is known to the agency through frequent interactions with Emergency Services as well as receiving targeted case management through [facility]. Client is cooperative, calm, and engaged in the crisis assessment which includes a member of the DS Team. Client discharged [facility] before noon today after a dramatic change in mood and denying suicidal or homicidal ideation. Client states he called EMS after hurting his back by missing a step at the hotel this evening. This Clinician observed full mobility of the Client during and after assessment without obvious indications of pain or discomfort. Client reported dissatisfaction with his food resources at the hotel and gave conflicting stories about the availability of the hotel room for him to return to. Client stated that he doesn't know why he left the hospital earlier and should have stayed and waited for a bed. Client has presented voluntarily for inpatient mental health treatment in the last twenty four hours, but abandoned that referral in favor of discharge this morning. Client reports engaging in dangerous and life threatening activities after discharge with intent to , or potentially cause harm to others. Client shows poor insight and judgement and is in need of higher level of care. Client referred to inpatient mental bridgett treatment and is waiting for placement on an involuntary status. Plan/Disposition Recommended Disposition: Hospitalization facilities contacted. Plan: Client is waiting in [facility] Zone B for inpatient treatment. Client status is Involuntary due to lability and dangerous behaviors after decisions to leave before voluntary inpatient treatment placement can be secured. Reports/communication Outcome discussed with: ED/Personnel
[2025-03-15 07:07] VITALS: BP 114/80; PULSE 74; RESP 22; TEMP 36.8; O2SAT 100
[2025-03-15] MEDS: Omeprazole 20 MG CAPCR PO (07:43)
[2025-03-15] MEDS: ARIPiprazole 5 MG TAB 10 MG PO (07:43)
[2025-03-15] MEDS: Lidocaine Patch Removal 1 EACH TP (07:44)
[2025-03-15] MEDS: Acetaminophen 500 MG TAB 1000 MG PO (07:57)
--- NOTE | 2025-03-15 10:12 | ED.PROG_ITS ---
Date of service: 03/15/25 Time of Service: 10:13 Medical Decision Making Care assumed from outgoing provider. Patient returned to to the emergency department after being discharged yesterday. Still endorsing suicidal ideation. Currently pending voluntary inpatient placement. There is some discussion about involuntary hold, but the patient is willingly voluntary. complainging of intermittent back discomfort after fall yesterday. PRNs ordered Quality:SDOH Health Related Social Needs: Health related social needs problems related to housin g/economic circumstances (Z59.89), problems with daily activities (Z73.9) Health related social needs details resident of [facility] b eds Discharge Plan Discharge Details Chief Complaint: PsychEval Clinical Impression: Bipolar 1 disorder, Suicidal ideation, Autism, Back pain Primary Care Provider: Reema Del Cid ED Provider: Gisselle Johnson Home Meds and New Rx's Prescriptions: No Action omeprazole 20 mg capsule,delayed release(DR/EC) 20 mg PO DAILY Qty: 90 3RF aripiprazole [Abilify] 20 mg tablet 10 mg PO DAILY Patient Comments: forgets to take at times lamotrigine [Lamictal] 25 mg tablet 25 mg PO DAILY lidocaine [Lidoderm] 5 % adhesive patch,medicated 1 patch Topical Q24H Qty: 15 0RF
[2025-03-15] MEDS: Lidocaine 5% Patch 1 PATCH TP ×2 (13:22→14:24)
--- NOTE | 2025-03-15 15:02 | PDOC.MHPN2 ---
Date of service: 03/15/25 Time of Service: 11:00 PHQ-9 Over the last 2 weeks, how often have you been bothered by any of the following problems? 1. Little interest or pleasure in doing things: nearly every day 2. Feeling down, depressed, or hopeless: nearly every day 3. Trouble falling or staying asleep, or sleeping too much: nearly every day 4. Feeling tired or having little energy: nearly every day 5. Poor appetite or overeating: nearly every day 6. Feeling bad about yourself - or that you are a failure or have let yourself and your family down: nearly every day 7. Trouble concentrating on things, such as reading the newspaper or watching television: nearly every day 8. Moving or speaking so slowly that other people could have noticed? - Or the opposite - being so fidgety or restless that you have been moving around a lot more than usual: nearly every day 9. Thoughts that you would be better off or of hurting yourself in some way: nearly every day Total score: 27 If you checked off any problems, how difficult have these problems made it for you to do your work, take care of things at home, or get along with other people?: extremely difficult PHQ-9 Results: Positive Source: Developed by Drs. Odin Richter, Katiana Neri, Ab Sarah and colleagues, with an educational christine from [employer].. Suicide Severity Rate CSSRS Have you wished you were or wished you could go to sleep and not wake up?: Yes Have you actually had any thoughts of killing yourself?: Yes CSSRS2 Have you been thinking about how you might do this?: Yes Have you had these thoughts and had some intention of acting on them?: Yes Have you started to work out or worked out the details of how to kill yourself? Do you intend to carry out this plan?: Yes CSSRS3 Have you ever done anything, started to do anything or prepared to do anything to end your life?: Yes CSSRS4 Was this within the past three months?: Yes Screening Score Total Score: 8 Screening: Positive Mental Health Emergency Note Release [facility] release signed:: Yes Reason for Visit Mr Braun is a 30 year old single male who currently resides at the [facility] for the next 8 days. The client presented as friendly and cooperative. The client states that he is having thoughts of jumping in front of cars to end his life. The client states that he had cheese omelet this morning and was engaging with another client in [facility]. The client states that his mood is good when he is engaging with others but becomes dark when he is by himself. The client states that he did not sleep well due to lower back pain from falling down stairs several days ago. Due to the states dangerous behaviors of jumping in front of traffic the previous night an EE will be considered if the client attempts to leave. The client is currently waiting for in patient treatment at [facility]. In the last 2 weeks has the pt presented for ES prior to today?: Yes, presented at Client Information Client is: [facility] Well Housed: Yes Non Suicidal Self Injury Current: No History: No Safety Risk/Harm to Self or Others Current Ideation to Harm Self or Others: Yes to self. Intent: yes, has intent. Plan: yes,has a plan. History of suicide attempt: yes,history of suicide attempt reported. Details of previous suicide attempt: states he was jumping in traffic Risk: Does risk to harm exist?: No Duty to warn indicated: No Asssessment/Mental Status Appearance: Unremarkable Attitude: Cooperative and Friendly Speech: Normal Affect: Flat Mood: Stressed Thought process: Unremarkable Hallucinations: No Delusions: No Attention: Unremarkable Perception: Not impaired Orientation: Fully orientated Memory: Intact Insight: Fair Judgement: Fair Neurovegetative Symptoms Sleep: Decrease Appetitie: No change Interests: No change Energy: No change Libido: Not applicable Substance Use: Do you use nicotine?: Yes Have you used substances in the last 7 days?: No Additional Issues: Assaultive/Threatening Behavior: No Medical Concerns: No Client engaged in active self harm w/weapon: No Threatening to run away: No Child reported abuse/neglect: No Voluntarily presenting for services: Yes Domestic violence is a concern: No Extreme Psychosis or extreme behavior is present: No Impression Mr Braun is a 30 year old single male who currently resides at the [facility] for the next 8 days. The client presented as friendly and cooperative. The client states that he is having thoughts of jumping in front of cars to end his life. The client states that he had cheese omelet this morning and was engaging with another client in zone b. The client states that his mood is good when he is engaging with others but becomes dark when he is by himself. The client states that he did not sleep well due to lower back pain from falling down stairs several days ago. Due to the states dangerous behaviors of jumping in front of traffic the previous night an EE will be considered if the client attempts to leave. The client is currently waiting for in patient treatment at [facility] zone b. Plan/Disposition Recommended Disposition: Hospitalization facilities contacted. Plan: The client will wait for in patient treatment at [facility] ED. Person reported agreement to plan: Yes Reports/communication Outcome discussed with: ED/Personnel
--- NOTE | 2025-03-15 15:40 | CMSP_ITS ---
Date of service: 03/15/25 Time of Service: 15:40 Care Management Safety Plan Status Status: Voluntary Reason for Wait Reason for Wait: Inpatient Admission Safety Plan Safety Plan: VOLUNTARY FOR INPATIENT PSYCHIATRIC STABILIZATION.? Patient is appropriate in all interactions since arriving at [facility]; Pt has demonstrated appropriate coping and communication skills, has articulated his or her needs and concerns and is fully engaged during staff interactions. Safety plan has been established with patient, and care team, to adhere to patient goals, identify restrictions based on behavioral status, address nutrition, and determine allowed personal belongings, tools for hygiene and personal care. Determine level of activity including ambulation, level of superv ision, visitors, and determine privileges based on behaviors and level of engagement by pt. VOLUNTARY SAFETY PLAN: 1. Will remain on suicide precautions, in paper clothes 2. Will remain in Zone B under direct supervision of one-on-one staff at all times provided by [employer]; AUDIE, SPUDDER portable canteen operator. 3. May have paper cups, plates, finger foods as well as a cardboard spoon with which to eat meals. 4. Follow [facility] Management of the Admitted Behavioral Health Patient policy. 5. Shower available in Zone B without restriction. 6. Personal belongings-soft items permitted at RN discretion. 7. Visitors- supportive visitors, at RN discretion. 8. Activities: soft cart items, hospital tablets (Netflix/[place]+/music) approved per RN discretion. 9.? Bathroom available in Zone B without restriction. 10. Phone: limited to [facility] cordless phone at RN discretion. Due to VOLUNTARY status, if patient wishes to leave [facility], staff will contact [facility] Crisis Screener ([phone]) and Script Artist ([phone]) as soon as possible. In the event of elopement, notify [facility] Police ([phone]). Patient is currently voluntarily at [facility] and seeking inpatient admission when a bed becomes available. [facility] Frontline Learning Disabilities Teacher will continue seeking placement. Please contact the Script Artist ([phone]) and [facility] Learning Disabilities Teacher ([phone]) for any needed changes in the Safety Plan. Safety plan has been provided to interdepartmental care team.
--- NOTE | 2025-03-15 15:40 | PDOC.CMSAFE ---
Date of service: 03/15/25 Time of Service: 15:40 Care Management Safety Plan Status Status: Voluntary Reason for Wait Reason for Wait: Inpatient Admission Safety Plan Safety Plan: VOLUNTARY FOR INPATIENT PSYCHIATRIC STABILIZATION.? Patient is appropriate in all interactions since arriving at [facility]; Pt has demonstrated appropriate coping and communication skills, has articulated his or her needs and concerns and is fully engaged during staff interactions. Safety plan has been established with patient, and care team, to adhere to patient goals, identify restrictions based on behavioral status, address nutrition, and determine allowed personal belongings, tools for hygiene and personal care. Determine level of activity including ambulation, level of supervision, visitors, and determine privileges based on behaviors and level of engagement by pt. VOLUNTARY SAFETY PLAN: 1. Will remain on suicide precautions, in paper clothes 2. Will remain in Zone B under direct supervision of one-on-one staff at all times provided by [employer]; AUDIE, PRIMING MIXTURE CARRIER deposition operator. 3. May have paper cups, plates, finger foods as well as a cardboard spoon with which to eat meals. 4. Follow [facility] Management of the Admitted Behavioral Health Patient policy. 5. Shower available in Zone B without restriction. 6. Personal belongings-soft items permitted at RN discretion. 7. Visitors- supportive visitors, at RN discretion. 8. Activities: soft cart items, hospital tablets (Netflix/[place]+/music) approved per RN discretion. 9.? Bathroom available in Zone B without restriction. 10. Phone: limited to [facility] cordless phone at RN discretion. Due to VOLUNTARY status, if patient wishes to leave [facility], staff will contact [facility] Crisis Screener ([phone]) and Face And Fill Packer ([phone]) as soon as possible. In the event of elopement, notify [facility] Police ([phone]). Patient is currently voluntarily at [facility] and seeking inpatient admission when a bed becomes available. [facility] Frontline Suggestion Clerk will continue seeking placement. Please contact the Face And Fill Packer ([phone]) and [facility] Suggestion Clerk ([phone]) for any needed changes in the Safety Plan. Safety plan has been provided to interdepartmental care team.
--- NOTE | 2025-03-15 15:41 | PDOC.CMPRO ---
Date of service: 03/15/25 Time of Service: 15:41 Care Management Progress Note Progress Note Text Progress Note Text: CM met with staff regarding Ketan's plan of care. Per RN, he has been appropriate today while in Zone B. Per report, he was seen yesterday and discharged to the community, at the [facility], where he has been staying. Per [facility], after discharging yesterday, he reported dodging traffic, and is now reporting that he is thinking about jumping in front of cars. He has agreed to stay voluntarily. Per [facility], Ketan's relationship with his parents is on and off, and he may communicate/visit with them as long as it is supportive, and he is agreeable to talking/meeting with them. Ketan is currently voluntary, seeking inpatient psychiatric treatment. Referrals are being sent by [facility] to facilities. Safety plan in place. CM will continue to follow. Social Determinants of Health Screening Will the Patient Participate in the Screening?: Unable to obtain
--- NOTE | 2025-03-15 15:53 | ED.PROG_ITS ---
Date of service: 03/15/25 Time of Service: 16:00 Medical Decision Making Patient with suicidal ideation awaiting voluntary inpatient placement. No new issues identified. Quality:SDOH Health Related Social Needs: Health related social needs problems related to housin g/economic circumstances (Z59.89), problems with daily activities (Z73.9) Health related social needs details resident of [facility] b eds Discharge Plan Discharge Details Chief Complaint: PsychEval Clinical Impression: Bipolar 1 disorder, Suicidal ideation, Autism, Back pain Primary Care Provider: Reema Del Cid ED Provider: Ana Marks Home Meds and New Rx's Prescriptions: No Action omeprazole 20 mg capsule,delayed release(DR/EC) 20 mg PO DAILY Qty: 90 3RF aripiprazole [Abilify] 20 mg tablet 10 mg PO DAILY Patient Comments: forgets to take at times lamotrigine [Lamictal] 25 mg tablet 25 mg PO DAILY lidocaine [Lidoderm] 5 % adhesive patch,medicated 1 patch Topical Q24H Qty: 15 0RF
[2025-03-15] MEDS: Acetaminophen 325 MG TAB 650 MG PO (21:01)
[2025-03-15] MEDS: Ibuprofen 600 MG TAB PO (21:01)
[2025-03-15 21:14] VITALS: BP 114/78; PULSE 85; RESP 22; TEMP 36.9; O2SAT 97
--- NOTE | 2025-03-15 22:15 | ED.PROG_ITS ---
Date of service: 03/15/25 Time of Service: 22:15 Medical Decision Making This patient was signed out to me. Please see previous notes for H&P and initial eval. In brief, 30yo with hx WpW, autism, bipolar, presenting with SI. Medically cleared, home meds ordered, pending voluntary inpatient placement. May meet involuntary criteria should they wish to leave. Accepted to [facility], plan to transfer in the am. Overnight no acute events. Will be signed out to oncoming physician; plan remains as above. Quality:SDOH Health Related Social Needs: Health related social needs problems related to housin g/economic circum stances (Z59.89), problems with daily activities (Z73.9) Health related social needs details resident of [facility] b eds Discharge Plan Discharge Details Chief Complaint: PsychEval Clinical Impression: Bipolar 1 disorder, Suicidal ideation, Autism, Back pain Primary Care Provider: Reema Del Cid ED Provider: Marilee Crum Home Meds and New Rx's Prescriptions: No Action omeprazole 20 mg capsule,delayed release(DR/EC) 20 mg PO DAILY Qty: 90 3RF aripiprazole [Abilify] 20 mg tablet 10 mg PO DAILY Patient Comments: forgets to take at times lamotrigine [Lamictal] 25 mg tablet 25 mg PO DAILY lidocaine [Lidoderm] 5 % adhesive patch,medicated 1 patch Topical Q24H Qty: 15 0RF
--- NOTE | 2025-03-16 07:12 | ED.PROG_ITS ---
Date of service: 03/16/25 Time of Service: 07:12 Medical Decision Making Patient accepted at [facility] for voluntary inpatient psychiatric treatment. Transportation arranged for this morning. Quality:SDOH Health Related Social Needs: Health related social needs problems related to housin g/economic circumstances (Z59.89), problems with daily activities (Z73.9) Health related social needs details resident of [facility] b eds Discharge Plan Disposition Patient Disposition: Psychiatric Hospital/Unit Specific Psychiatric Facility: [facility] [place] [facility] Medical-Psychiatric Unit Discharge Details Clinical Impression: Bipolar 1 disorder, Suicidal ideation, Autism, Back pain Primary Care Provider: Reema Del Cid ED Provider: Gisselle Johnson Home Meds and New Rx's Prescriptions: No Action omeprazole 20 mg capsule,delayed release(DR/EC) 20 mg PO DAILY Qty: 90 3RF aripiprazole [Abilify] 20 mg tablet 10 mg PO DAILY Patient Comments: forgets to take at times lamotrigine [Lamictal] 25 mg tablet 25 mg PO DAILY lidocaine [Lidoderm] 5 % adhesive patch,medicated 1 patch Topical Q24H Qty: 15 0RF
[2025-03-16 08:11] VITALS: BP 115/84; PULSE 75; RESP 18; TEMP 36.6; O2SAT 96
[2025-03-16] MEDS: ARIPiprazole 5 MG TAB 10 MG PO (08:23)
[2025-03-16] MEDS: Omeprazole 20 MG CAPCR PO (08:23)
[2025-03-16] MEDS: Lidocaine Patch Removal 1 EACH TP (08:24)
--- NOTE | 2025-03-18 08:58 | NUR.NOTE ---
Accessed Pt chart to give [facility] the time of departure.
== END 2025-03-16 09:46 ==
PROVIDERS: Nurse Practitioner Family; Emergency Provider Emergency Medicine; PCP Family Medicine
DX: R45.851 Suicidal ideations (principal); M54.9 Dorsalgia, unspecified; Z59.89 Other problems related to housing and economic circumstances; Z73.9 Problem related to life management difficulty, unspecified; F31.9 Bipolar disorder, unspecified; F84.0 Autistic disorder
CPT/HCPCS: 99285 ×3; 00123; 80048; 80307; 85027; 96127; H0046; 72110; 72220; 80320; 80329; 81003; 84443; J3490

== ENCOUNTER 2025-04-26 21:26 | Emergency (ER) | payer MEDICAID, SELFPAY ==
--- NOTE | 2025-04-26 21:30 | RT.EKG_ITS ---
APPROVED REPORT Exam: Resting ECG Reason for Exam: chest pain Patient Location: E HR:93 bpm ECG Measurements Heart Rate 93 AXIS HI 106 P 48 QRSd 140 QRS -28 QT 348 T 132 QTc 434 Conclusion Sinus rhythm 93 WPW no change from prior
[2025-04-26 21:33] VITALS: BP 153/92; PULSE 112; RESP 20; TEMP 36.6; O2SAT 97
[2025-04-26 21:38] VITALS: RESP 20
--- NOTE | 2025-04-26 22:33 | ED.GENADUL_ITS ---
Discharge Plan Disposition Patient Disposition: Home Condition: Stable Discharge Details Clinical Impression: History of Cdwcd-Enouayrau-Ejzlx (WPW) syndrome Primary Care Provider: Reema Del Cid ED Provider: Gisselle Johnson Home Meds and New Rx's Prescriptions: No Action omeprazole 20 mg capsule,delayed release(DR/EC) 20 mg PO DAILY Qty: 90 3RF aripiprazole [Abilify] 20 mg tablet 10 mg PO DAILY Patient Comments: forgets to take at times lamotrigine [Lamictal] 25 mg tablet 25 mg PO DAILY lidocaine [Lidoderm] 5 % adhesive patch,medicated 1 patch Topical Q24H Qty: 15 0RF Discharge Instructions Additional Instructions: Follow-up with wood tile installer as scheduled this month. Please go back to the crisis bed to resume your continued care there. HPI General Date/Time Provider Initiated Documentation: 04/26/25 21:39 . Limitations to Documentation: no limitations . Information obtained by: patient . HPI Narrative: 30-year-old gentleman with past medical history of bipolar disorder, developmental delay, WPW presents for evaluation of chest pain. Patient has been staying at the crisis bed. He reported to them that he had chest pain, he says that they were unable to call an ambulance so they suggested that he just w alk to the emergency department. He states he walked up here he is feeling fine now. He does not have any palpitations or chest pain or shortness of breath. He has not had any syncopal episodes. Related Data Home Medications ?Medication ?Instructions ?Recorded ?Confirmed aripiprazole 20 mg tablet (Abilify) 10 mg PO DAILY 10/30/23 04/26/25 omeprazole 20 mg capsule,delayed 20 mg PO DAILY #90 caps 02/27/25 04/26/25 release lamotrigine 25 mg tablet (Lamictal) 25 mg PO DAILY 03/10/25 04/26/25 lidocaine 5 % topical patch 1 patch topical Q24H #15 ea 03/11/25 04/26/25 (Lidoderm) Previous Rx's ?Medication ?Instructions ?Recorded omeprazole 20 mg capsule,delayed 20 mg PO DAILY #90 caps 02/27/25 release lidocaine 5 % topical patch 1 patch topical Q24H #15 ea 03/11/25 (Lidoderm) Allergies Allergy/AdvReac Type Severity Reaction Status Date / Time risperidone Allergy Mild tics Verified 04/26/25 21:40 General Stated Complaint: Chest Pain SOLANGE: 3 Exam Narrative Exam Narrative: Review of Systems: All systems reviewed & are unremarkable except as noted in HPI and below Well-developed, no acute distress NCAT RRR no murmur Unlabored respiratory effort clear bilaterally Course Vital Signs Vital signs: Vital Signs Temperature 36.6 C 04/26/25 21:33 Pulse 112 H 04/26/25 21:33 Respiratory Rate 20 04/26/25 21:33 Blood Pressure 153/92 H 04/26/25 21:33 Pulse Oximetry 97 04/26/25 21:33 Temperature 36.6 C 04/26/25 21:33 Temperature Source Oral 04/26/25 21:33 Pulse 112 H 04/26/25 21:33 Respiratory Rate 20 04/26/25 21:38 Respiratory Effort Normal 04/26/25 21:38 Respiratory Depth Normal 04/26/25 21:38 Respiratory Pattern Normal 04/26/25 21:38 Blood Pressure 153/92 H 04/26/25 21:33 Blood Pressure Position Sitting 04/26/25 21:33 Pulse Oximetry 97 04/26/25 21:33 Oxygen Delivery Method Room Air 04/26/25 21:33 Oxygen Flow Rate 0 04/26/25 21:33 Pain Level 8 04/26/25 21:33 Medical Decision Making Emergent evaluation chest pain. Patient does have history of WPW. EKG reviewed, sinus 93 preexcitation pathway noted. No change from prior EKGs. The patient has not had any exertional chest pain syncope or other concerning symptoms. Heart rate well-controlled and I do not suspect an arrhythmia. The patient has no symptoms at this time and at this time I recommend that he is safe to return to the care bed. Follow-up with cardiology as he has an appointment scheduled later this month. Quality:SDOH Health Related Social Needs: Health related social needs problems related to housin g/economic circumstances (Z59.89), problems with daily activities (Z73.9) Health related social needs details resident of care b eds [facility] All Active Problems (Updated 04/26/25 @ 22:01 by Gisselle Johnson MD) History of Orxzp-Landhrbhz-Qkqyj (WPW) syndrome (Acute) Urinary and fecal incontinence (Acute) Gender dysphoria in adult (Acute) planning to transition to female Major depressive disorder, recurrent, moderate (Acute) Post-traumatic stress disorder, unspecified (Acute) Alcohol abuse, uncomplicated (Acute) Obesity (BMI 30.0-34.9) (Acute) Developmental delay, mild (Acute) Bipolar 1 disorder (Acute) Autism (Acute) Medical History WPW (Etwrt-Zzekqtmst-Thchz syndrome) Family History Mother No problems noted. Father Depression PTSD (post-traumatic stress disorder) Brother Diabetes Type 1 Seizure Maternal Grandmother Dementia Social History Smoking/Tobacco Use Status: Current every day Tobacco Type: cigarettes Years smoked: 10 Smoking risk assessment performed?: Yes Alcohol Intake: current Alcohol Intake frequency: 3 or more drinks per day Alcohol type: hard liquor Drug use: Daily Substance use type: marijuana Details: Pt states he is no longer using marijuana 11/30/24 Household members: family Housing: house What is your relationship status?: never Panel score (0-1 are the most socially isolated patients): 0 Do you feel safe at home: Yes (homeless) Do you feel safe in your relationship?: Yes
== END 2025-04-26 22:07 | disposition home or self-care (01) ==
PROVIDERS: Emergency Provider Emergency Medicine; PCP Family Medicine
DX: R00.2 Palpitations (principal); R07.9 Chest pain, unspecified; I45.6 Pre-excitation syndrome; F17.210 Nicotine dependence, cigarettes, uncomplicated
CPT/HCPCS: 93005; 99283; 93010

== ENCOUNTER 2025-10-25 18:42 | Emergency (ER) | payer MEDICAID, SELFPAY ==
[2025-10-25] VITALS (9 sets, daily range): BP systolic 139; BP diastolic 80; PULSE 71–89; RESP 13–20; TEMP 36.7; O2SAT 94–97
--- NOTE | 2025-10-25 19:02 | W.ED.GENAD ---
Discharge Plan Disposition Patient Disposition: Home Condition: Stable Discharge Details Clinical Impression: Lumbar back pain Primary Care Provider: Unknown,Unknown ED Provider: Thiago Chi Home Meds and New Rx's Prescriptions: New methocarbamol 750 mg tablet 750 mg PO QID 7 Days Qty: 28 0RF ketorolac 10 mg tablet 10 mg PO QID 5 Days Qty: 20 0RF Rx Instructions: maximum total duration of 5 days from all oral, intranasal, or parenteral formulations Continued omeprazole 20 mg capsule,delayed release(DR/EC) 20 mg PO DAILY Qty: 90 3RF omeprazole 40 mg capsule,delayed release(DR/EC) 40 mg PO DAILY Patient Comments: TAKE ONE CAPSULE BY MOUTH EVERY DAY aripiprazole 15 mg tablet 15 mg PO DAILY Patient Comments: TAKE ONE TABLET BY MOUTH EVERY DAY buspirone 5 mg tablet 5 mg PO TID Patient Comments: TAKE ONE TABLET BY MOUTH THREE TIMES A DAY mirtazapine 7.5 mg tablet 7.5 mg PO DAILY Patient Comments: TAKE ONE TABLET BY MOUTH ONCE DAILY IN THE EVENING hydroxyzine HCl 25 mg tablet 25 mg PO Q12H PRN PRN Patient Comments: TAKE ONE TABLET BY MOUTH EVERY 12 HOURS NEEDED FOR ANXIETY aripiprazole [Abilify] 20 mg tablet 10 mg PO DAILY Patient Comments: forgets to take at times lamotrigine [Lamictal] 25 mg tablet 25 mg PO DAILY lidocaine [Lidoderm] 5 % adhesive patch,medicated 1 patch Topical Q24H Qty: 15 0RF Discharge Instructions Instructions: Ketorolac (Systemic), Methocarbamol, Low Back Pain ED Additional Instructions: You were seen in the emergency department for your low back pain from a fall 2 days ago, there is no fracture of the thoracic or lumbar spine or tailbone, please take regular dose of Tylenol, have sent a 5-day prescription for Toradol as well as a prescription for skeletal muscle relaxer called methocarbamol to your pharmacy. Please monitor your condition closely and return for any neurologic changes or any other emergent concerns. Stand Alone Forms: Portal Information Discharge Data Discharge Date/Time-TO BE ENTERED AT DEPARTURE: 10/25/25 21:00 HPI General Date/Time Provider Initiated Documentation: 10/25/25 18:49. HPI Narrative: 30 year-old male presents to ED today by EMS from [facility] with a chief complaint of fall prior to going to care bed at his parents house, lower back pain with onset 2 days ago. Quality described as lower back pain, radiates up the back at times- endorses chronic bowel and urinary problems that have NOT changed with this minor fall and back pain- but has been going on for 6 months, where and has been incontinent of stool and urine, no radiation to numbness/tingling, bruising, inability to voluntarily urinate. Severity is described as moderate. Palliating factors include nothing specific. Provoking factors include nothing specific. Patient not anticoagulated. Related Data Home Medications ?Medication ?Instructions ?Recorded ?Confirmed aripiprazole 20 mg tablet (Abilify) 10 mg PO DAILY 10/30/23 10/25/25 omeprazole 20 mg capsule,delayed 20 mg PO DAILY #90 caps 02/27/25 10/25/25 release lamotrigine 25 mg tablet (Lamictal) 25 mg PO DAILY 03/10/25 10/25/25 lidocaine 5 % topical patch 1 patch topical Q24H #15 ea 03/11/25 10/25/25 (Lidoderm) aripiprazole 15 mg tablet 15 mg PO DAILY 10/25/25 10/25/25 buspirone 5 mg tablet 5 mg PO TID 10/25/25 10/25/25 hydroxyzine HCl 25 mg tablet 25 mg PO Q12H PRN PRN 10/25/25 10/25/25 ketorolac 10 mg tablet 10 mg PO QID 5 days #20 tabs 10/25/25 methocarbamol 750 mg tablet 750 mg PO QID 7 days #28 tabs 10/25/25 mirtazapine 7.5 mg tablet 7.5 mg PO DAILY 10/25/25 10/25/25 omeprazole 40 mg capsule,delayed 40 mg PO DAILY 10/25/25 10/25/25 release Previous Rx's ?Medication ?Instructions ?Recorded omeprazole 20 mg capsule,delayed 20 mg PO DAILY #90 caps 02/27/25 release lidocaine 5 % topical patch 1 patch topical Q24H #15 ea 03/11/25 (Lidoderm) ketorolac 10 mg tablet 10 mg PO QID 5 days #20 tabs 10/25/25 methocarbamol 750 mg tablet 750 mg PO QID 7 days #28 tabs 10/25/25 Allergies Allergy/AdvReac Type Severity Reaction Status Date / Time risperidone Allergy Mild tics Verified 10/25/25 19:21 General Stated Complaint: Nk/Back Pain SOLANGE: 3 Review of Systems All systems reviewed & are unremarkable except as noted in HPI and below Exam Narrative Exam Narrative: GENERAL APPEARANCE: Well-nourished, non-toxic, awake and alert, atraumatic, mild acute distress. SKIN: Warm, pink, dry, intact, without rashes/lesions/ulcerations. HEAD: Normocephalic, atraumatic, normal hair distribution for gender/age. EYES: Normal conjunctiva, no exudates on lids/lashes. ENT: Nares patent, no circumoral cyanosis, no facial swelling NECK: Supple, trachea midline, painless cervical ROM. LUNGS/CHEST: Lungs CTA bilaterally- no rhonchi/rales/wheezes diffusely, non-labored respirations, normal A/P diameter, symmetrical expansion, no chest wall deformity HEART (CV/PV): Regular rate and rhythm without murmur, no peripheral edema, no JVD. ABDOMEN: Soft, non-distended, no guarding. MSK: Normal ROM, no swelling/deformity to bilateral UEs or LEs, moving all extremities without weakness, no cyanosis, spine midline without tenderness-lumbar paraspinal tenderness, no saddle anesthesia, normal curvature. NEURO: Mental Status AAOx4 - alert to person, place, time, events No facial droop, no forehead involvement. Motor: No focal weakness Sensory: sensation intact to light touch globally. Gait normal: patient ambulated without ataxia into ED room. PSYCH: dysthymic, cooperative, pleasant, appropriate speech Course Vital Signs Vital signs: Vital Signs Temperature 36.7 C 10/25/25 18:49 Pulse 89 10/25/25 18:49 Respiratory Rate 16 10/25/25 18:49 Blood Pressure 139/80 10/25/25 18:49 Pulse Oximetry 96 10/25/25 18:49 Temperature 36.7 C 10/25/25 18:49 Temperature Source Tympanic 10/25/25 18:49 Pulse 89 10/25/25 18:49 Respiratory Rate 16 10/25/25 18:49 Blood Pressure 139/80 10/25/25 18:49 Blood Pressure Position Sitting 10/25/25 18:49 Pulse Oximetry 96 10/25/25 18:49 Oxygen Delivery Method Room Air 10/25/25 18:49 Oxygen Flow Rate 0 10/25/25 18:49 Pain Level 9 10/25/25 18:58 Medical Decision Making This dictation utilizes [id number] dictation software and may contain unedited grammatical errors. 30 year-old male presents to ED today by EMS from [facility] with a chief complaint of fall prior to going to care bed at his parents house, lower back pain with onset 2 days ago. Quality described as lower back pain, radiates up the back at times- endorses chronic bowel and urinary problems that have NOT changed with this minor fall and back pain- but has been going on for 6 months, where and has been incontinent of stool and urine, no radiation to numbness/tingling, bruising, inability to voluntarily urinate. Severity is described as moderate. Palliating factors include nothing specific. Provoking factors include nothing specific. Patients' medical history: WPW, history of urinary and fecal incontinence, depressive disorder, alcohol abuse, obesity, bipolar 1. Family and social history: Noncontributory. Pertinent exam findings / vital signs include lumbar tenderness without crepitus or step-off, neurovascular intact bilateral lower extremities without saddle anesthesia. Differential / pathologies of concern include lumbar radiculopathy, less likely cauda equina the patient has had these ongoing urinary and bowel issues without back injury. Diagnostic studies of: - CT thoracic and lumbar spine-no acute findings. Interventions of: - 10 p.o. ketorolac, 0.5 mg p.o. Ativan. ED Course/Assessment/Plan: 30-year-old male presents after fall 2 days ago at his parents home with lower back pain, he has been ambulating just fine and at the care bed for multiple days just wanted to get checked out, he reports chronic bowel and urinary issues that have been unchanged since his fall, CT shows no acute findings, patient engaged in shared decision making regards to Tylenol and Toradol and muscle relaxer-given Rx for ketorolac and methocarbamol with strict return criteria for any neurovascular changes to the legs. Findings not consistent with cauda equina, neurovascular compromise of lower extremities, fracture. Disposition of Lumbar Back Pain. Patient verbalized understanding of the plan and return to ED criteria and engaged in shared decision making. Medical Records Medical records reviewed: Yes I reviewed the patient's medical records. Imaging Data Radiologic Study: Attestation: I personally reviewed and interpreted this imaging study as follows: Imaging: CT Scan Radiologist's impression: Exam: CT Thoracic Spine Without Contrast Exam date and time: 10/25/2025 7:18 PM Age: 30 years old Clinical indication: Low back pain; Pain in thoracic spine; Without myelpathy or radiculopathy TECHNIQUE: Imaging protocol: Computed tomography of the thoracic spine without contrast. Total images: 2291 Radiation optimization: All CT scans at this facility use at least one of these dose optimization techniques: automated exposure control; mA and/or kV adjustment per patient size (includes targeted exams where dose is matched to clinical indication); or iterative reconstruction. COMPARISON: CR XR THORACIC SPINE COMPLETE 03/10/2025 11:35 PM FINDINGS: Bones/joints: No acute fracture. Discs/Spinal canal/Neural foramina: No significant spinal stenosis. Soft tissues: No paraspinal mass. IMPRESSION: No acute thoracic spine fracture. PROCEDURE INFORMATION: Exam: CT Lumbar Spine Without Contrast Exam date and time: 10/25/2025 7:18 PM Age: 30 years old Clinical indication: Low back pain; Pain in thoracic spine; Without myelpathy or radiculopathy TECHNIQUE: Imaging protocol: Computed tomography of the lumbar spine without contrast. Radiation optimization: All CT scans at this facility use at least one of these dose optimization techniques: automated exposure control; mA and/or kV adjustment per patient size (includes targeted exams where dose is matched to clinical indication); or iterative reconstruction. COMPARISON: CR XR LUMBAR SPINE COMPLETE 03/14/2025 6:32 PM FINDINGS: Bones/joints: No acute fracture. No significant central or foraminal stenosis. Soft tissues: Paraspinal soft tissues are unremarkable. IMPRESSION: No acute lumbar spine fracture. Dictated and Authenticated by: Juan Carlos Saldivar MD. Quality:SDOH Health Related Social Needs: Health related social needs house/econ circumstance daily activities Health related social needs details resident of care beds PFSH All Active Problems (Updated 10/25/25 @ 20:41 by GORGE Beaver) Lumbar back pain (Acute) Urinary and fecal incontinence (Acute) Gender dysphoria in adult (Acute) planning to transition to female Major depressive disorder, recurrent, moderate (Acute) Post-traumatic stress disorder, unspecified (Acute) Alcohol abuse, uncomplicated (Acute) Obesity (BMI 30.0-34.9) (Acute) Developmental delay, mild (Acute) Bipolar 1 disorder (Acute) Autism (Acute) Medical History WPW (Kyecn-Gnxhvvavm-Zhdkn syndrome) Family History Mother No problems noted. Father Depression PTSD (post-traumatic stress disorder) Brother Diabetes Type 1 Seizure Maternal Grandmother Dementia Social History Smoking/Tobacco Use Status: Former Tobacco Use Smoking risk assessment performed?: Yes Alcohol Intake: former Drug use: Daily Substance use type: marijuana Household members: family Housing: house What is your relationship status?: never Panel score (0-1 are the most socially isolated patients): 0 Do you feel safe at home: Yes (homeless) Do you feel safe in your relationship?: Yes
--- NOTE | 2025-10-25 19:26 | DI.CT_ITS ---
Exam(s) CT THORACIC LUMBAR SPINE WO EXAM: CT THORACIC LUMBAR SPINE WO CLINICAL HISTORY: low back pain. TECHNIQUE: Imaging Protocol: Axial computed tomography images with coronal and sagittal reformatted images were created and reviewed. CONTRAST MATERIAL: Intravenous: None COMPARISON: PRIOR X-RAYS REVIEWED. FINDINGS: THORACIC SPINAL COLUMN: No evidence of fracture nor listhesis nor disc space narrowing. Facet joints appear unremarkable. No facet malalignment. No osseous canal compromise. No incidental osseous lesions. LUMBOSACRAL SPINAL COLUMN: No evidence of fracture, listhesis, nor pars interarticularis defects. There is moderate disc space narrowing at L5-S1 level. Other disc spaces exhibit normal height. Normal appearing facet joints at all levels. At L5-S1 level there is left paracentral annular bulging which contacts the thecal sac. Central canal dimensions are lower normal. There is no significant foraminal stenosis at this level. There are no pars defects at L5 and no listhesis. IMPRESSION: No significant osseous findings in the thoracic spinal column. No acute osseous findings in the lumbosacral spinal column. There is moderate disc space narrowing at L5-S1 level. RADIATION DOSE DELIVERED: 2,271.98mGy.cm Total DLP DATA REPOSITORY: All CT scans at this facility are submitted to the National Radiology Data Registry (NRDR) Dose Index Registry (DIR) with the [employer] ([employer]). RADIATION OPTIMIZATION: All CT scans at this facility use at least one of these dose optimization techniques: automated exposure control; mA and/or kV adjustment per patient size (includes targeted exams where dose is matched to clinical indication); or iterative reconstruction.
--- NOTE | 2025-10-25 20:29 | DI.VRAD_ITS ---
PROCEDURE INFORMATION: Exam: CT Thoracic Spine Without Contrast Exam date and time: 10/25/2025 7:18 PM Age: 30 years old Clinical indication: Low back pain; Pain in thoracic spine; Without myelpathy or radiculopathy TECHNIQUE: Imaging protocol: Computed tomography of the thoracic spine without contrast. Total images: 2291 Radiation optimization: All CT scans at this facility use at least one of these dose optimization techniques: automated exposure control; mA and/or kV adjustment per patient size (includes targeted exams where dose is matched to clinical indication); or iterative reconstruction. COMPARISON: CR XR THORACIC SPINE COMPLETE 03/10/2025 11:35 PM FINDINGS: Bones/joints: No acute fracture. Discs/Spinal canal/Neural foramina: No significant spinal stenosis. Soft tissues: No paraspinal mass. IMPRESSION: No acute thoracic spine fracture. PROCEDURE INFORMATION: Exam: CT Lumbar Spine Without Contrast Exam date and time: 10/25/2025 7:18 PM Age: 30 years old Clinical indication: Low back pain; Pain in thoracic spine; Without myelpathy or radiculopathy TECHNIQUE: Imaging protocol: Computed tomography of the lumbar spine without contrast. Radiation optimization: All CT scans at this facility use at least one of these dose optimization techniques: automated exposure control; mA and/or kV adjustment per patient size (includes targeted exams where dose is matched to clinical indication); or iterative reconstruction. COMPARISON: CR XR LUMBAR SPINE COMPLETE 03/14/2025 6:32 PM FINDINGS: Bones/joints: No acute fracture. No significant central or foraminal stenosis. Soft tissues: Paraspinal soft tissues are unremarkable. IMPRESSION: No acute lumbar spine fracture. Dictated and Authenticated by: Juan Carlos Saldivar MD. Orderin Arti Das MD
[2025-10-25] MEDS: Ketorolac 10 MG TAB PO (20:56)
== END 2025-10-25 21:00 | disposition home or self-care (01) ==
PROVIDERS: Emergency Provider Physician Assistant
DX: M54.50 Low back pain, unspecified (principal); W19.XXXA Unspecified fall, initial encounter
CPT/HCPCS: 99284 ×2; 72128; 72131